=== PATIENT | female | born 1940 | race Caucasian/White ===

== ENCOUNTER 2016-12-14 02:30 | Inpatient (IN) | payer MEDICARE, BC ==
[2016-12-14] MEDS ORDERED: SODIUM CHLORIDE 0.9% 1,000 ML IV STA ×2 (02:51)
[2016-12-14] MEDS ORDERED: MORPHINE SULFATE 4 MG/ML SYRINGE IV STA (02:51)
--- NOTE | 2016-12-14 02:54 | ED ---
General Adult HPI - General Chief complaint: Fall Stated complaint: Fall Time Seen by Provider: 12/14/16 02:51 Source: patient, EMS, RN notes reviewed, old records reviewed Mode of arrival: EMS Limitations: no limitations - History of Present Illness Initial comments: This is a 75-year-old female ESS. The patient had a fall while home today. Patient does have recent surgery and knee, has difficulty getting around house. Patient complaining of left hip pain. Denies chest pain or shortness of breath no abdominal pain. Patient also admits to hitting head with no loss of consciousness. No syncopal event no chest pain or shortness of breath, no abdominal pain. Patient is not on blood thinners. Again patient complains of severe left hip pain - Related Data Home Medications Medication Instructions Recorded Confirmed Cholecalciferol (Vitamin D3) 5,000 unit PO BID 06/01/14 08/12/16 [Vitamin D3] Pantoprazole Sodium [Protonix] 40 mg PO DAILY 06/22/14 08/12/16 Atorvastatin [Lipitor] 10 mg PO DAILY 09/07/14 08/12/16 ALPRAZolam [Xanax] 1 mg PO HS@2100 07/08/16 08/12/16 DULoxetine HCL 40 mg PO HS@2100 07/08/16 08/12/16 metFORMIN HCL [Glucophage] 500 mg PO AC-BID 07/20/16 08/12/16 ALPRAZolam [Xanax] 0.25 mg PO BID 08/12/16 08/12/16 Acetaminophen Tab [Tylenol] 1,000 mg PO TID 08/12/16 08/12/16 Bisacodyl [Dulcolax] 10 mg RECTAL DAILY PRN 08/12/16 08/12/16 Glucerna Shake 1 can PO TID-W/MEALS 08/12/16 08/12/16 Ipratropium-Albuterol Nebulize 3 ml INHALATION RT-Q6H PRN 08/12/16 08/12/16 [Duoneb 0.5 mg-3 mg/3 ml Soln] Lisinopril [Zestril] 2.5 mg PO DAILY 08/12/16 08/12/16 Magnesium Hydroxide [Milk of 2,400 mg PO DAILY PRN 08/12/16 08/12/16 Magnesia] Previous Rx's Medication Instructions Recorded Megestrol [Megace] 400 mg PO BID cup 08/18/16 Modafinil [Provigil] 200 mg PO DAILY #30 tab 08/18/16 Propranolol [Inderal] 20 mg PO BID tab 08/18/16 Sennosides-Docusate Sodium 1 each PO DAILY tab 08/18/16 [Senokot-S] Allergies Allergy/AdvReac Type Severity Reaction Status Date / Time latex Allergy Rash/Hives Verified 08/12/16 11:47 hydrocodone bitartrate AdvReac Nausea & Verified 08/12/16 11:47 [From Vicodin] Vomiting ibuprofen [From Motrin] AdvReac Nausea & Verified 08/12/16 11:47 Vomiting morphine AdvReac Nausea & Verified 08/12/16 11:47 Vomiting Review of Systems ROS Statement: Those systems with pertinent positive or pertinent negative responses have been documented in the HPI. ROS Other: All systems not noted in ROS Statement are negative. Past Medical History Past Medical History: Diabetes Mellitus, GERD/Reflux, Hypertension, Renal Disease Additional Past Medical History / Comment(s): vertigo, recent left proximal humerus fx, UTI;S, HX FALLS, ANEMIA, RENAL INSUFICIENCY/FAILURE, HOME OXYGEN 2.5 liters as needed. PER PTS WAS TOLD SHE MAY HAVE EARLY SINGS OF DEMENTIA History of Any Multi-Drug Resistant Organisms: None Reported Past Surgical History: Cholecystectomy, Hysterectomy Additional Past Surgical History / Comment(s): dental surgery-JAW SX BONE TAKEN FROM HIP TO USE., KNEE SURGERY, cataracts, 07-20-16 total rt knee Past Anesthesia/Blood Transfusion Reactions: Motion Sickness Past Psychological History: Anxiety, Depression, Panic Disorder Additional Psychological History / Comment(s): livs with spouse, uses walker. has home 02. Smoking Status: Former smoker Past Alcohol Use History: None Reported Additional Past Alcohol Use History / Comment(s): STARTED SMOKING AT AGE 16, SMOKED 1 PPD X 50 YEARS Past Drug Use History: None Reported - Past Family History Father History Unknown: Yes Additional Family Medical History / Comment(s): Father had a heart valve replacement surgery at approx. age 75. Mother Family Medical History: CVA/TIA General Exam Limitations: no limitations General appearance: alert, in no apparent distress Head exam: Present: atraumatic, normocephalic, normal inspection Eye exam: Present: normal appearance, PERRL, EOMI. Absent: scleral icterus, conjunctival injection, periorbital swelling ENT exam: Present: normal exam, mucous membranes moist Neck exam: Present: normal inspection. Absent: tenderness, meningismus, lymphadenopathy Respiratory exam: Present: normal lung sounds bilaterally. Absent: respiratory distress, wheezes, rales, rhonchi, stridor Cardiovascular Exam: Present: regular rate, normal rhythm, normal heart sounds. Absent: systolic murmur, diastolic murmur, rubs, gallop, clicks GI/Abdominal exam: Present: soft, normal bowel sounds. Absent: distended, tenderness, guarding, rebound, rigid Extremities exam: Present: normal inspection, full ROM, normal capillary refill. Absent: tenderness, pedal edema, joint swelling, calf tenderness Back exam: Present: normal inspection Neurological exam: Present: alert, oriented X3, CN II-XII intact Psychiatric exam: Present: normal affect, normal mood Skin exam: Present: warm, dry, intact, normal color. Absent: rash EKG Findings - EKG Comments: EKG Findings:: EKG shows normal sinus rhythm with ventricular 9, OR 146, QRS 88 , QTc 520 Medical Decision Making - Medical Decision Making 75-year-old for female to ER for evaluation of. Positive left hip fracture, patient be admitted for pain control and surgical evaluation and treatment - Lab Data Result diagrams: 12/14/16 03:15 12/14/16 03:15 Lab Results 12/14/16 12/14/16 12/14/16 Range/Units 03:15 03:15 03:15 WBC 10.7 H (3.8-10.6) k/uL RBC 3.58 L (3.80-5.40) m/uL Hgb 10.7 L (11.4-16.0) gm/dL Hct 33.7 L (34.0-46.0) % MCV 94.1 (80.0-100.0) fL MCH 30.0 (25.0-35.0) pg MCHC 31.9 (31.0-37.0) g/dL RDW 17.4 H (11.5-15.5) % Plt Count 240 (150-450) k/uL Neutrophils % 75 % Lymphocytes % 15 % Monocytes % 5 % Eosinophils % 3 % Basophils % 1 % Neutrophils # 8.0 H (1.3-7.7) k/uL Lymphocytes # 1.6 (1.0-4.8) k/uL Monocytes # 0.5 (0-1.0) k/uL Eosinophils # 0.3 (0-0.7) k/uL Basophils # 0.1 (0-0.2) k/uL Hypochromasia Slight Anisocytosis Slight PT 10.8 (9.0-12.0) sec INR 1.1 (<1.1) APTT 23.4 (22.0-30.0) sec Sodium 141 (137-145) mmol/L Potassium 3.4 L (3.5-5.1) mmol/L Chloride 100 (98-107) mmol/L Carbon Dioxide 28 (22-30) mmol/L Anion Gap 13 mmol/L BUN 12 (7-17) mg/dL Creatinine 0.50 L (0.52-1.04) mg/dL Est GFR (MDRD) Af Amer >60 (>60 ml/min/1.73 sqM) Est GFR (MDRD) Non-Af >60 (>60 ml/min/1.73 sqM) Glucose 136 H (74-99) mg/dL Calcium 9.5 (8.4-10.2) mg/dL Phosphorus 3.6 (2.5-4.5) mg/dL Magnesium 1.7 (1.6-2.3) mg/dL Total Bilirubin 0.8 (0.2-1.3) mg/dL AST 41 H (14-36) U/L ALT 33 (9-52) U/L Alkaline Phosphatase 111 (38-126) U/L Total Protein 6.1 L (6.3-8.2) g/dL Albumin 3.2 L (3.5-5.0) g/dL - Radiology Data Radiology results: report reviewed (CT brain C-spine negative for acute disease , chest x-ray negative for ecchymosis, x-ray left hip positive for fracture), image reviewed Disposition Clinical Impression: Fall, Closed left hip fracture Disposition: ADMITTED IP TO THIS [facility] Condition: Fair Referrals: Omar Guy MD [Primary Care Provider] - 1-2 days
[2016-12-14] MEDS: ONDANSETRON 4 MG/2 ML VIAL IVP STA ×2 (03:16→04:37)
[2016-12-14 03:28] LABS: Anisocytosis Slight; Basophils # (A) 0.1 k/uL (0-0.2); Basophils % (A) 1 %; CH 29.2; CHCM 31.2; Eosinophils # (A) 0.3 k/uL (0-0.7); Eosinophils % (A) 3 %; HCT 33.7 % (34.0-46.0); HDW 2.76; HGB 10.7 gm/dL (11.4-16.0); Hypochromasia Slight; Luc # (Auto) 0.28; Luc % (Auto) 3; Lymphocytes # (A) 1.6 k/uL (1.0-4.8); Lymphocytes % (A) 15 %; MCHC 31.9 g/dL (31.0-37.0); MCV 94.1 fL (80.0-100.0); Mean Platelet Volume 7.4; Monocytes # (A) 0.5 k/uL (0-1.0); Monocytes % (A) 5 %; Neutrophils % (A) 75 %; RBC 3.58 m/uL (3.80-5.40); RDW 17.4 % (11.5-15.5); WBC 10.7 k/uL (3.8-10.6); WBC (Perox) 11.03
[2016-12-14 03:37] LABS: INR 1.1 (<1.1); Partial Thromboplastin Time 23.4 sec (22.0-30.0); Prothrombin Time 10.8 sec (9.0-12.0)
[2016-12-14 03:38] LABS: ALT 33 U/L (9-52); AST 41 U/L (14-36); Alkaline Phosphatase 111 U/L (38-126); Anion Gap 13 mmol/L; Blood Urea Nitrogen 12 mg/dL (7-17); Calcium 9.5 mg/dL (8.4-10.2); Carbon Dioxide 28 mmol/L (22-30); Chloride 100 mmol/L (98-107); Glucose 136 mg/dL (74-99); Magnesium 1.7 mg/dL (1.6-2.3); Non-African American GFR(MDRD) >60 (>60 ml/min/1.73 sqM); Phosphorous 3.6 mg/dL (2.5-4.5); Potassium 3.4 mmol/L (3.5-5.1); Sodium 141 mmol/L (137-145); Total Bilirubin 0.8 mg/dL (0.2-1.3); Total Protein 6.1 g/dL (6.3-8.2)
[2016-12-14 03:54] LABS: Creatine Kinase 30 U/L (30-135)
[2016-12-14] MEDS ORDERED: SODIUM CHLORIDE 0.9% 1,000 ML IV ONE (04:03)
[2016-12-14 04:07] LABS: Creatine Kinase MB 0.4 ng/mL (0.0-2.4); Troponin I <0.012 ng/mL (0.000-0.034)
--- NOTE | 2016-12-14 04:11 | XR ---
INDICATION: Weakness COMPARISON: CXR 08/12/16 FINDINGS: Single frontal view of the chest is provided. There is stable cardiomegaly. Pulmonary vascularity is cephalized without overt pulmonary edema. There are linear opacities at the bilateral lung bases, likely representing subsegmental atelectasis/scarring. There is no pleural effusion or pneumothorax. Hyperexpanded lungs are stable from prior exam and compatible with chronic obstructive pulmonary disease. Abnormal angulation is suggested at the left humeral neck. Osseous structures are otherwise unremarkable. IMPRESSION: 1. Abnormal angulation suggested at the left humeral neck which may represent age-indeterminate fracture of the left humerus. Correlate clinically and consider dedicated radiographs of the left humerus/shoulder. 2. No radiographic evidence of acute cardiopulmonary disease. 3. COPD with bibasilar scarring/subsegmental atelectasis.
--- NOTE | 2016-12-14 04:17 | XR ---
LEFT HIP, 2 VIEWS INDICATION: Left hip pain COMPARISON: None. FINDINGS: AP and cross-table lateral views of the left hip are obtained. Bones are osteopenic. There is an acute traumatic intertrochanteric fracture of the left femur with proximal migration of the femoral shaft and varus deformity. The lesser trochanter fragment is medially displaced by 2 cm. There is comminution involving the greater trochanter. There is regional soft tissue swelling. IMPRESSION: Osteopenia with acute traumatic comminuted and angulated intertrochanteric fracture of the left femur with medially displaced lesser trochanter fracture fragment.
--- NOTE | 2016-12-14 04:26 | CT ---
CT HEAD WITHOUT CONTRAST INDICATION: Trauma TECHNIQUE: Noncontrast volumetric CT acquisition was performed through the head. Multiplanar reformatted images were provided. This CT exam was performed using one or more of the following dose reduction techniques: automated exposure control, adjustment of the mA and/or kV according to patient size, and/or use of iterative reconstruction technique. DOSIMETRY: CTDIvol 60.30 mGy; DLP 1017.90 mGy-cm COMPARISON: CT Head 08/12/16 FINDINGS: There is evidence of acute intracranial hemorrhage or abnormal extra-axial fluid collection. There is no mass effect or midline shift. There are involutional changes with prominence of the sulci, ventricles, and basal cisterns. Hypoattenuation in the periventricular cerebral white matter is compatible with chronic small vessel ischemic disease. Ingram-white matter differentiation is preserved. There is no evidence of skull fracture. The visualized paranasal sinuses and mastoid air cells are clear. IMPRESSION: 1. No CT evidence of acute intracranial process. CT CERVICAL SPINE WITHOUT CONTRAST INDICATION: Trauma TECHNIQUE: Noncontrast volumetric CT acquisition was performed through the cervical spine. Multiplanar reformatted images were provided. This CT exam was performed using one or more of the following dose reduction techniques: automated exposure control, adjustment of the mA and/or kV according to patient size, and/or use of iterative reconstruction technique. DOSIMETRY: CTDIvol 14 mGy; DLP 285.10 mGy-cm COMPARISON: None. FINDINGS: There is straightening of the cervical spine. Vertebral body heights are maintained. There is no evidence of acute fracture or subluxation. There is multilevel degenerative disc disease and facet arthropathy. There is 2 mm degenerative anterolisthesis of C4 on C5. There is multilevel mild foraminal narrowing without evidence of high-grade spinal canal narrowing. There is no prevertebral soft tissue swelling. The lung apices are clear and demonstrate mild centrilobular emphysema. IMPRESSION: 1. No CT evidence of acute osseous abnormality.
[2016-12-14 04:34] LABS: Appearance,Urine Clear (Clear); Bacteria,Urine Many /hpf; Bilirubin,Urine Negative (Negative); Glucose,Urine (UA) Negative (Negative); Ketones,Urine Trace (Negative); Leukocyte Esterase,Urine Negative (Negative); Mucus,Urine Occasional /hpf; Nitrite,Urine Negative (Negative); PH, Urine 5.5 (5.0-8.0); Particle Count 8712; Protein,Urine 2+ (Negative); Squamous Epithelial Cell,Urine <1 /hpf (0-4); UA Billing (MACRO vs. MICRO) MICRO; Urobilinogen,Urine <2.0 mg/dL (<2.0); WBC,Urine 9 /hpf (0-5)
--- NOTE | 2016-12-14 04:34 | CT ---
CT LEFT HIP WITHOUT CONTRAST INDICATION: Left hip fracture TECHNIQUE: Noncontrast volumetric CT acquisition was performed through the left hip. Multiplanar reformatted images were provided. This CT exam was performed using one or more of the following dose reduction techniques: automated exposure control, adjustment of the mA and/or kV according to patient size, and/or use of iterative reconstruction technique. DOSIMETRY: CTDIvol 14.60 mGy; DLP 273.40 mGy-cm. COMPARISON: Left hip radiographs 12/14/16 FINDINGS: Bones are osteopenic. There is an acute traumatic comminuted and impacted intertrochanteric fracture of the left femur. There is proximal migration of the femoral shaft resulting in varus deformity. There is comminution of the fracture at the greater trochanter. There is comminution and 2 cm medial displacement of the lesser trochanter fracture fragment. There is a small hemarthrosis of the left hip. There is swelling of the surrounding soft tissues. There is a chronic displaced fracture through the left iliac crest. The displaced iliac crest fragment demonstrates well-corticated margins. IMPRESSION: 1. Acute traumatic impacted and angulated intertrochanteric fracture of the left femur with comminuted, medially displaced lesser trochanter fracture fragment. 2. Chronic displaced fracture through the left iliac crest.
[2016-12-14] MEDS: MORPHINE SULFATE 2 MG/ML SYRINGE IVP PRN ×3 (04:36→13:08)
[2016-12-14 05:23] VITALS: BMI 22.1
--- NOTE | 2016-12-14 07:34 | P.HPOR ---
History of Present Illness H&P Date: 12/14/16 Chief Complaint: Left intertrochanteric hip fracture This is a 75-year-old female who was seen and examined evaluated at bedside on the medical surgical floor today. Patient was brought to [facility] emergency room early this morning after sustaining a fall. Patient was attempting to get out of bed, tripped falling onto her left side. She had severe pain of the left hip, was unable to weight bear, EMS was contacted and brought patient to the hospital. Upon arrival to the hospital, imaging test were done. Images demonstrated a displaced left intertrochanteric hip fracture. I was contacted by the emergency room staff with regards to this patient, she has seen Dr. Javier in the past for multiple orthopedic problems. Most recent was a right total knee replacement on 07/20/2016. I was able to review the images with Dr. Javier, patient was admitted under our care. Internal medicine was consulted for proper clearances. At bedside today, patient is resting comfortably. She is alert and oriented 3 , she answers my questions adequately. She admits to left hip pain when she attempts to move. Patient states that she can discontinue to use a walker when ambulating. The right knee pain has been much improved since surgery. She denies any new acute pain in the right knee. She denies any pain of the right hip. She denies any significant left knee or foot or ankle pain. She denies any new onset low back pain. Review of Systems Constitutional: Reports as per HPI Past Medical History Past Medical History: Diabetes Mellitus, GERD/Reflux, Hypertension, Renal Disease Additional Past Medical History / Comment(s): vertigo, recent left proximal humerus fx, UTI;S, HX FALLS, ANEMIA, RENAL INSUFICIENCY/FAILURE, HOME OXYGEN 2.5 liters as needed. PER PTS WAS TOLD SHE MAY HAVE EARLY SINGS OF DEMENTIA History of Any Multi-Drug Resistant Organisms: None Reported Past Surgical History: Cholecystectomy, Hysterectomy Additional Past Surgical History / Comment(s): dental surgery-JAW SX BONE TAKEN FROM HIP TO USE., KNEE SURGERY, cataracts, 07-20-16 total rt knee Past Anesthesia/Blood Transfusion Reactions: Motion Sickness Past Psychological History: Anxiety, Depression, Panic Disorder Additional Psychological History / Comment(s): livs with spouse, uses walker. has home 02. Smoking Status: Former smoker Past Alcohol Use History: None Reported Additional Past Alcohol Use History / Comment(s): STARTED SMOKING AT AGE 16, SMOKED 1 PPD X 50 YEARS Past Drug Use History: None Reported - Past Family History Father History Unknown: Yes Additional Family Medical History / Comment(s): Father had a heart valve replacement surgery at approx. age 75. Mother Family Medical History: CVA/TIA Medications and Allergies Home Medications Medication Instructions Recorded Confirmed Type Cholecalciferol (Vitamin D3) 5,000 unit PO BID 06/01/14 08/12/16 History [Vitamin D3] Pantoprazole Sodium [Protonix] 40 mg PO DAILY 06/22/14 08/12/16 History Atorvastatin [Lipitor] 10 mg PO DAILY 09/07/14 08/12/16 History ALPRAZolam [Xanax] 1 mg PO HS@2100 07/08/16 08/12/16 History DULoxetine HCL 40 mg PO HS@2100 07/08/16 08/12/16 History metFORMIN HCL [Glucophage] 500 mg PO AC-BID 07/20/16 08/12/16 History ALPRAZolam [Xanax] 0.25 mg PO BID 08/12/16 08/12/16 History Acetaminophen Tab [Tylenol] 1,000 mg PO TID 08/12/16 08/12/16 History Bisacodyl [Dulcolax] 10 mg RECTAL DAILY PRN 08/12/16 08/12/16 History Glucerna Shake 1 can PO TID-W/MEALS 08/12/16 08/12/16 History Ipratropium-Albuterol Nebulize 3 ml INHALATION RT-Q6H PRN 08/12/16 08/12/16 History [Duoneb 0.5 mg-3 mg/3 ml Soln] Lisinopril [Zestril] 2.5 mg PO DAILY 08/12/16 08/12/16 History Magnesium Hydroxide [Milk of 2,400 mg PO DAILY PRN 08/12/16 08/12/16 History Magnesia] Allergies Allergy/AdvReac Type Severity Reaction Status Date / Time latex Allergy Rash/Hives Verified 08/12/16 11:47 hydrocodone bitartrate AdvReac Nausea & Verified 08/12/16 11:47 [From Vicodin] Vomiting ibuprofen [From Motrin] AdvReac Nausea & Verified 08/12/16 11:47 Vomiting morphine AdvReac Nausea & Verified 08/12/16 11:47 Vomiting Physical Examination Left lower extremity: Obvious malalignment of the left lower extremity present, she is shortened and internally rotated. There are no obvious open lesions present. No significant ecchymosis or soft tissue swelling. Logroll maneuver reproduces pain in the left groin. She is unable to straight leg raise. Plantar flexion, dorsiflexion, EHL, FHL are intact. Sensory exam to light touch throughout extremities intact. Dorsal pedis pulses 2+. Results - Labs Labs: Abnormal Lab Results - Last 24 Hours (Table) 12/14/16 Range/Units 04:15 Urine Protein 2+ H (Negative) Urine Ketones Trace H (Negative) Urine WBC 9 H (0-5) /hpf Urine Bacteria Many H (None) /hpf Urine Mucus Occasional H (None) /hpf Result Diagrams: 12/14/16 03:15 12/14/16 03:15 - Diagnostic results Hip x-ray: report reviewed, image reviewed Hip CT: report reviewed, image reviewed Assessment and Plan Plan: Imaging: Multiple imaging test were done including x-rays and CTs the left hip. Images to demonstrate a displaced and comminuted left intertrochanteric hip fracture Assessment: 1. Displaced left intertrochanteric hip fracture 2. Status post fall from bed 3. History of right total knee arthroplasty, 07/20/2016 4. Other medical comorbidities Plan: 1. Our plan is to proceed with an open reduction internal fixation of this left hip fracture, we would like to proceed with the afternoon of 12/14/2016. I did discuss the case, including both surgical treatment and postoperative period with the patient and her at bedside. I discussed the risk and benefits of the procedure, this including but not excluding infections, developmental blood clots, blood loss, pain and stiffness, need for subsequent surgery, mortality. Patient is in good understanding would like to proceed with surgery 2. Nothing by mouth 3. Nonweightbearing left leg 4. Obtain medical clearance 5. Obtain consents 6. Pain control, utilize tramadol 50 mg every 6, avoid heavier narcotics due to mental status changes 7. GI and DVT prophylaxis, we'll discuss with medical 8. Further recommendations to follow after surgery Time with Patient: Less than 30
[2016-12-14] MEDS: ENOXAPARIN 40 MG/0.4 ML SYRINGE SQ SCH (08:05)
[2016-12-14] MEDS ORDERED: IPRATROPIUM-ALBUTEROL 3 ML NEB INHALATION PRN (08:18)
[2016-12-14] MEDS: PROPRANOLOL 20 MG TAB PO SCH ×2 (08:42→20:58)
[2016-12-14] MEDS ORDERED: PROPRANOLOL 20 MG TAB PO SCH (09:00)
[2016-12-14] MEDS: POTASSIUM CHLORIDE 20 MEQ, LIDOCAINE 2% INJ 20 MG in SODIUM CHLORIDE 0.9% 100 ML IVPB SCH ×2 (09:40→11:37)
[2016-12-14] MEDS: ALPRAZolam 0.25 MG TAB PO SCH ×2 (11:35→20:55)
[2016-12-14] MEDS: PANTOPRAZOLE 40 MG TABLET PO SCH (11:35)
[2016-12-14] MEDS: LISINOPRIL 2.5 MG TAB PO SCH (11:36)
[2016-12-14] MEDS: traMADol 50 MG TAB PO SCH ×5 (11:36→23:41)
[2016-12-14] MEDS: ENALAPRILAT 1.25 MG/ML 1 ML VIAL IVP PRN (13:18)
[2016-12-14] MEDS ORDERED: IV FLUID CONTINUATION 600 ML IV ONE (13:44)
[2016-12-14] MEDS ORDERED: ONDANSETRON 4 MG/2 ML VIAL IVP ONE (14:07)
[2016-12-14 14:14] LABS: Glucose,Whole Blood 139 mg/dL (75-99)
[2016-12-14] MEDS ORDERED: fentaNYL (PF) 50 MCG/ML 2 ML AMP IV ONE (14:15)
[2016-12-14] MEDS ORDERED: ceFAZolin 1,000 MG in DEXTROSE/WATER 1 50ML.BAG IVPB STA (14:23)
[2016-12-14] MEDS ORDERED: KETAMINE 10 MG/ML 20 ML VIAL ONE (14:34)
[2016-12-14] MEDS ORDERED: PROPOFOL 10 MG/ML 20 ML VIAL IV ONE (14:34)
[2016-12-14] MEDS ORDERED: hydrALAZINE HCL 20 MG/ML 1 ML VIAL ONE (14:34)
[2016-12-14] MEDS ORDERED: fentaNYL (PF) 50 MCG/ML 2 ML AMP ONE (14:34)
[2016-12-14] MEDS ORDERED: MIDAZOLAM 2 MG/2 ML VIAL ONE (14:34)
--- NOTE | 2016-12-14 14:38 | CONS ---
DATE OF CONSULTATION: ATTENDING PHYSICIAN: Dr. Javier. CONSULTING PHYSICIAN: Dr. Ambrocio Guy. REASON FOR CONSULTATION: Consultation regarding preop evaluation and management. HISTORY OF PRESENT ILLNESS: This 75-year-old female was admitted to the hospital with a fractured left hip. The patient fell. During the night, the patient was trying to get out of bed to use the bathroom. She has got to small pillows on the edge of the bed to help support an extension to the mattress area. The patient night dress got caught on that. She started falling. The patient reached for the walker but fell to the floor. The patient did hit her head. A CAT scan of the head was done with no evidence of injury. She was not dizzy prior to fall. The patient had no syncopal episode. The patient did have a fracture as mentioned above. She is scheduled for surgery. Prior to this fall, the patient has been doing fairly well and has had no symptoms of any recent infections. The patient does have a no history of any bleeding disorder. The patient functional status is fairly limited. The patient had a right knee arthroplasty done a few months ago and still has some limitation to the knee joint. The patient also has still low motivation. Her spouse does a lot of her functions. Past medical history is significant for the history of COPD with chronic respiratory failure. The patient also has history of hypertension, diabetes mellitus, "adequately controlled". The patient has mild aortic stenosis and mitral regurgitation. No history of any liver disease, kidney disease. She did have an episode of renal failure due to severe dehydration, which has resolved. The patient has no history of any thyroid condition, ulcers, TB, hepatitis, rheumatic fever. No history of any myocardial infarction or CVA. The patient has a long history of previous long history of smoking, nonsmoker at present. She has a history of chronic anxiety and depression, for which she sees a psychiatrist. She also has history of chronic headaches for which she has been on Inderal. Past surgical significant history is significant for cholecystectomy, hysterectomy, bone graft to the jaw, right knee meniscus surgery back in 2004 and subsequent right total knee arthroplasty. PERSONAL HISTORY: The patient is a nonsmoker at present. Alcohol none. ALLERGIES: KEFLEX, SENSITIVE TO NARCOTICS WITH NAUSEA AND VOMITING. SENSITIVE TO PAXIL. SOCIAL HISTORY: Patient is and lives with her spouse who has been a great help for her. FAMILY MEDICAL HISTORY: Father with a history of ASHD and severe aortic stenosis post surgery. Mother had a history of hypertension, diabetes mellitus, and dementia. Medications at present include: 1. Metformin 500 mg b.i.d. 2. Senokot daily. 3. Inderal 20 mg b.i.d. 4. Protonix 40 mg daily. 5. Provigil 200 milligrams daily. 6. Megace 400 mg b.i.d. 7. Lisinopril 2.5 mg daily. 8. DuoNeb updrafts q.i.d. 9. Duloxetine 40 mg at bedtime. 10. Vitamin D3 daily. 11. Lipitor 10 mg daily. 12. Xanax 0.25 b.i.d. and 1 mg at bedtime. REVIEW OF SYSTEMS: NEURO: Denies any headaches, dizziness. No double vision, blurred vision. No symptoms of TIA, syncope, seizures. PSYCH: History of chronic anxiety, depression. CARDIAC: Denies chest pain, angina, palpitations. RESPIRATORY: Denies shortness of breath, cough, hemoptysis. Does have history of chronic obstructive lung disease with chronic hypoxia. She uses oxygen, but at present fairly stable respiratory status. GI: Occasional nausea. No vomiting, diarrhea, abdominal pain constipation, hematochezia, melena. : No symptoms of dysuria, hematuria, urgency, frequency, at present has IDC. EXTREMITIES: Has pain in the left hip, otherwise mild chronic edema at the ankles. SKIN: No breakdown. ENT: Adequate hearing, smell, taste. EYES: Adequate vision. PHYSICAL EXAMINATION: Pleasant female, at present in no distress. Vital signs reveal temperature 98.1, pulse 77, respirations 16, blood pressure was 200/81, pulse of 93% on 2 liters. HEENT: Normocephalic. NECK: No JVD. Pupils are reactive. Oral cavity is moist. Neck reveals no JVD, carotid bruits. CHEST: Examination is clear to auscultation. CARDIAC: Normal S1, S2 with no gallops. Systolic murmur 2/6 right second intercostal space and apex. ABDOMEN: Soft, no palpable masses. Bowel sounds normal. No organomegaly. No bruits. Extremities reveal 1+ edema at the ankles. Neurologically awake, alert, oriented x3 with well-coordinated movements in both upper extremities. Laboratory assessment: CBC which showed a hemoglobin 10.7, white count 10.7, platelets 240. INR is normal. Potassium was low at 3.4 and is being replaced. Normal renal function. Glucose 136. Troponin is negative. Urine had 2+ protein. Negative nitrates. ASSESSMENT: 1. Chronic obstructive pulmonary disease with chronic respiratory failure. Stable. 2. Diabetes mellitus, controlled. 3. History of hypertension. 4. Status post left hip fracture. 5. Previous history of right total knee arthroplasty. 6. Chronic anxiety, depression. 7. Anemia, chronic. PLAN: The patient is stable. Continue present medical regimen. Patient's condition stable to undergo the planned surgical procedure of left hip ORIF. The patient's condition discussed with the patient and spouse. Prognosis remains guarded. She is going to require rehabilitation. The patient's EKG does reveal changes of left ventricular hypertrophy, with no acute changes.
[2016-12-14] MEDS ORDERED: SODIUM CHLORIDE 0.9% 100 ML with ceFAZolin 2,000 MG IV ONE ×2 (15:00)
[2016-12-14] MEDS ORDERED: ceFAZolin 1,000 MG in SODIUM CHLORIDE 0.9% 1,000 ML IRRIGATION ONE (15:39)
[2016-12-14] MEDS ORDERED: LACTATED RINGERS 1,000 ML IV ONE ×2 (16:16→17:24)
[2016-12-14] MEDS ORDERED: MAGNESIUM HYDROXIDE 2,400 MG/10 ML CUP PO PRN (16:18)
[2016-12-14] MEDS ORDERED: ONDANSETRON 4 MG/2 ML VIAL IVP PRN (16:18)
[2016-12-14] MEDS ORDERED: NALOXONE 0.4 MG/ML 1 ML VIAL IV PRN (16:18)
--- NOTE | 2016-12-14 16:25 | P.OP ---
Date of Procedure: 12/14/16 Preoperative Diagnosis: Comminuted intertrochanteric fracture left hip Postoperative Diagnosis: Comminuted intertrochanteric fracture left hip Procedure(s) Performed: Open reduction and internal fixation left hip intertrochanteric fracture Implants: Mert hip capture short 135 screw with 4-hole plate and 4- appropriate length 4.5 cortical screws Anesthesia: spinal Surgeon: Guillermo Javier Spring Assembler Supervisor #1: Federico Brownlee Estimated Blood Loss (ml): 75 Pathology: none sent Condition: stable Disposition: PACU Indications for Procedure: 75-year-old patient seen with a displaced comminuted left hip intertrochanteric fracture. I recommended open reduction and internal fixation. I discussed procedure, risks, complications and recovery.. Patient and were agreeable, consent was obtained. Operative Findings: See description of procedure Description of Procedure: The patient was taken to the operative suite. The patient underwent a spinal anesthetic by the department of anesthesia. Patient was transferred to the fracture table. She received preoperative IV antibiotics. The left lower extremity placed in standard longitudinal traction and the right lower extremity is placed in well-padded well-leg walters. Appropriate traction and some internal rotation were placed left lower extremity. The C-arm was brought in confirming adequate alignment of this comminuted intertrochanteric fracture. The left hip was then prepped and draped in the normal sterile orthopedic fashion. I made an incision beginning just distal to the greater trochanter extending distally approximately 4 inches sharply through skin. Dissection taken down to the IT band. It was incised as was the fascia overlying the vastus lateralis. I dissected down to the lateral proximal femur. I now introduced a guidewire into the head/neck complex under direct fluoroscopy confirming adequate positioning. Appropriate depth gauging and triple reaming were now performed. I now introduced a short 135 hip capture screw into the head neck complex with good bite and purchase noted. This was secured to a 4 hole plate. We secured that to the proximal femur. We now made appropriate drill holes through the plate and inserted appropriate length screws which all had good bite and purchase. We now checked the position under both AP and lateral intraoperative imaging and noted adequate alignment of both the fracture and hardware. Spot films were obtained documenting. The C-arm was pulled back. The wound was irrigated. The fascia was repaired with #1 Vicryl. The IT band was repaired with #3 Vicryl. The subcu soft tissues were approximated in layers with 2-0 Vicryl. The skin was approximated with skin joseph. Sterile dressings were applied. The patient was then awakened, transferred to a bed and then recovery stable condition. Dangelo KNOWLES assisted with the procedure.
[2016-12-14 17:30] LABS: Glucose,Whole Blood 172 mg/dL (75-99)
[2016-12-14 18:16] LABS: Glucose,Whole Blood 166 mg/dL (75-99)
[2016-12-14] MEDS: INSULIN LISPRO (humaLOG) 300 UNIT/3 ML VIAL SQ SCH ×3 (18:27→23:23)
[2016-12-14 18:32] LABS: Anisocytosis Slight; Basophils # (A) 0.1 k/uL (0-0.2); Basophils % (A) 1 %; CHCM 30.3; Eosinophils # (A) 0.1 k/uL (0-0.7); Eosinophils % (A) 1 %; HCT 30.6 % (34.0-46.0); HDW 2.77; HGB 9.5 gm/dL (11.4-16.0); Hypochromasia Moderate; Luc # (Auto) 0.28; Luc % (Auto) 3; Lymphocytes # (A) 1.1 k/uL (1.0-4.8); Lymphocytes % (A) 12 %; MCH 29.8 pg (25.0-35.0); MCV 96.1 fL (80.0-100.0); Mean Platelet Volume 7.5; Monocytes # (A) 0.7 k/uL (0-1.0); Monocytes % (A) 8 %; Neutrophils # (A) 6.6 k/uL (1.3-7.7); Neutrophils % (A) 75 %; RBC 3.18 m/uL (3.80-5.40); WBC 8.8 k/uL (3.8-10.6); WBC (Perox) 9.39
[2016-12-14 20:21] LABS: Glucose,Whole Blood 150 mg/dL (75-99)
[2016-12-14] MEDS: ALPRAZolam 0.5 MG TAB PO SCH (20:55)
[2016-12-14] MEDS: LACTATED RINGERS 1,000 ML IV SCH (20:58)
[2016-12-14] MEDS: DULoxetine HCL 20 MG CAPSULE.DR PO SCH (20:58)
[2016-12-14] MEDS: SENNOSIDES-DOCUSATE SODIUM 1 EACH TAB PO SCH (20:58)
[2016-12-14] MEDS: ceFAZolin 2 GM in SODIUM CHLORIDE 0.9% 100 ML IVPB SCH (23:39)
[2016-12-15] MEDS: ALPRAZolam 0.25 MG TAB PO SCH ×3 (00:17→19:46)
[2016-12-15] MEDS: ALPRAZolam 0.5 MG TAB PO SCH ×2 (00:17→19:46)
[2016-12-15] MEDS: MORPHINE SULFATE 2 MG/ML SYRINGE IVP PRN ×3 (00:49→20:16)
[2016-12-15 07:10] LABS: Glucose,Whole Blood 145 mg/dL (75-99)
--- NOTE | 2016-12-15 07:38 | FL ---
EXAMINATION TYPE: FL guidance operating room, XR Hip Complete LT DATE OF EXAM: 12/14/2016 4:19 PM CLINICAL HISTORY: Left hip fracture. TECHNIQUE: Fluoroscopy. Intraoperative limited views left hip. COMPARISON: None. FINDINGS: Fluoroscopic guidance was provided during open reduction internal fixation procedure perfo rmed by Dr. Javier. A total of 84 seconds of fluoroscopic time was utilized during the procedure and 2 spot intraoperative images are acquired. Intraoperative images acquired show placement of lateral plate with 4 distal transverse screws and la rger normal neck fixating screws through comminuted intertrochanteric fracture of the left proximal f emur. IMPRESSION: As Above.
[2016-12-15] MEDS: PANTOPRAZOLE 40 MG TABLET PO SCH (08:21)
[2016-12-15] MEDS: PROPRANOLOL 20 MG TAB PO SCH ×2 (08:21→20:46)
[2016-12-15] MEDS: LISINOPRIL 2.5 MG TAB PO SCH (08:22)
[2016-12-15] MEDS: ENOXAPARIN 40 MG/0.4 ML SYRINGE SQ SCH (08:22)
[2016-12-15] MEDS: traMADol 50 MG TAB PO SCH (08:23)
[2016-12-15] MEDS: INSULIN LISPRO (humaLOG) 300 UNIT/3 ML VIAL SQ SCH ×4 (08:29→20:46)
[2016-12-15] MEDS: ceFAZolin 2 GM in SODIUM CHLORIDE 0.9% 100 ML IVPB SCH (09:02)
--- NOTE | 2016-12-15 11:20 | P.PN ---
Subjective Principal diagnosis: Status post open reduction internal fixation left intertrochanteric hip fracture Patient is seen today, she is resting in her hospital chair. Patient is severely agitated, just didn't move her out of bed to the chair. Patient's mental status is altered, likely due to the anesthesia that was given during surgery yesterday. Objective - Vital Signs Vital signs: Vital Signs Temp 98.4 F 12/15/16 03:59 Pulse 82 12/15/16 03:59 Resp 18 12/15/16 03:59 BP 147/63 12/15/16 03:59 Pulse Ox 90 L 12/15/16 07:55 Intake & Output 12/14/16 12/15/16 12/15/16 18:59 06:59 18:59 Intake Total 2851 1100 Output Total 675 Balance 2176 1100 Intake: IV 2651 1100 Sodium Chloride 0.9% 1, 700 900 000 ml @ 100 mls/hr IV . Q10H [facility] Rx#:[id number] ceFAZolin 1,000 mg In 200 Dextrose/Water 1 50ml.bag @ 100 mls/hr IVPB ONCE [facility] Rx#:[id number] Intake, IV Titration 200 Amount Potassium Chloride 20 meq 200 Lidocaine 2% Inj 20 mg In Sodium Chloride 0.9% 100 ml @ 55.5 mls/hr IVPB Q2HR [facility] Rx#:[id number] Output: Urine 600 Estimated Blood Loss 75 Other: Voiding Method Indwelling Catheter Indwelling Catheter Indwelling Catheter # Voids 1 - Exam Left lower extremity: Incision is clean, dry and intact, joseph are in good position. Minimal swelling present around the left lateral hip. Calf is soft, no tenderness with palpation. Plantar flexion, dorsiflexion, EHL, FHL are intact. Dorsal pedis pulses 2+, sensory exam to light touch is intact. - Labs CBC & Chem 7: 12/14/16 18:05 12/14/16 03:15 Labs: Abnormal Lab Results - Last 24 Hours (Table) 12/14/16 12/14/16 12/14/16 Range/Units 14:03 17:27 18:05 RBC 3.18 L (3.80-5.40) m/uL Hgb 9.5 L (11.4-16.0) gm/dL Hct 30.6 L (34.0-46.0) % RDW 17.0 H (11.5-15.5) % POC Glucose (mg/dL) 139 H 172 H (75-99) mg/dL 12/14/16 12/14/16 12/15/16 Range/Units 18:14 20:12 07:06 RBC (3.80-5.40) m/uL Hgb (11.4-16.0) gm/dL Hct (34.0-46.0) % RDW (11.5-15.5) % POC Glucose (mg/dL) 166 H 150 H 145 H (75-99) mg/dL Microbiology - Last 24 Hours (Table) 12/14/16 04:15 Urine Culture - Preliminary Urine,Voided Assessment and Plan Plan: Assessment: 1. Postop day #1 status post open reduction internal fixation left intertrochanteric hip fracture Plan: 1. Pain control, continue use of tramadol 2. Nonweightbearing left leg 3. Daily dressing changes/ice the hip 4. GI and DVT prophylaxis, continue subcu Lovenox at this time 5. Medical recommendations 6. We'll continue to follow the patient during inpatient stay, she'll likely be discharged to rehab in the next few days Time with Patient: Less than 30
[2016-12-15 11:42] LABS: Glucose,Whole Blood 153 mg/dL (75-99)
[2016-12-15] MEDS ORDERED: OFIRMEV PER PHARMACY MISCELLANE PRN (11:43)
[2016-12-15] MEDS ORDERED: ACETAMINOPHEN IV (For NPO) 1,000 MG in EMPTY BAG 1 BAG IVPB PRN (11:45)
[2016-12-15 12:16] LABS: Anisocytosis Slight; Basophils # (A) 0.1 k/uL (0-0.2); Basophils % (A) 1 %; CH 29.2; CHCM 30.2; Eosinophils # (A) 0.1 k/uL (0-0.7); Eosinophils % (A) 1 %; HCT 27.7 % (34.0-46.0); HDW 2.75; HGB 8.4 gm/dL (11.4-16.0); Hypochromasia Moderate; Luc # (Auto) 0.55; Luc % (Auto) 5; Lymphocytes # (A) 1.6 k/uL (1.0-4.8); Lymphocytes % (A) 13 %; MCH 29.3 pg (25.0-35.0); MCHC 30.2 g/dL (31.0-37.0); MCV 97.2 fL (80.0-100.0); Mean Platelet Volume 7.8; Monocytes # (A) 1.2 k/uL (0-1.0); Monocytes % (A) 10 %; Neutrophils # (A) 8.9 k/uL (1.3-7.7); Neutrophils % (A) 71 %; RBC 2.85 m/uL (3.80-5.40); RDW 16.8 % (11.5-15.5); WBC 12.5 k/uL (3.8-10.6); WBC (Perox) 12.76
[2016-12-15] MEDS: ACETAMINOPHEN TAB 500 MG TAB PO PRN (12:18)
[2016-12-15 16:42] LABS: Glucose,Whole Blood 133 mg/dL (75-99)
[2016-12-15] MEDS: LACTATED RINGERS 1,000 ML IV SCH (18:54)
[2016-12-15] MEDS ORDERED: KETOROLAC 30 MG/ML 1 ML VIAL IVP STA (20:36)
[2016-12-15] MEDS: SENNOSIDES-DOCUSATE SODIUM 1 EACH TAB PO SCH (20:41)
[2016-12-15 20:43] LABS: Glucose,Whole Blood 151 mg/dL (75-99)
[2016-12-15] MEDS: DULoxetine HCL 20 MG CAPSULE.DR PO SCH (20:45)
--- NOTE | 2016-12-15 23:26 | PN ---
CHIEF COMPLAINT: Re-evaluation. HISTORY OF PRESENT ILLNESS: [id number] female who was admitted to the hospital with a fractured left hip. Patient has undergone left hip ORIF. Patient was seen this evening. The patient is very agitated. She complains of pain. She does not tolerate narcotics too well. The patient otherwise has no other symptoms. REVIEW OF SYSTEMS: NEURO: Denies any headaches, dizziness. PSYCH: Anxiety. CARDIAC: Denies chest pain. RESPIRATORY: Denies shortness of breath. GI: No nausea, vomiting. Does complain of some abdominal discomfort. : No symptoms of dysuria, hematuria. EXTREMITIES: No pain except to the left hip. CONSTITUTIONAL: No fever or chills. PHYSICAL EXAMINATION: A 75-year-old, restless and anxious. Vital signs revealed temperature 100.6, pulse 92, respiration 16, blood pressure 136/61, pulse ox 90% on 6 L. HEENT: Normocephalic. NECK: No JVD. CHEST: Clear to auscultation with generalized decreased air flow. No wheezing or rhonchi. CARDIAC: Distant heart sounds. S1, S2 with no gallops. ABDOMEN: Soft. Bowel sounds present. Extremities reveal trace edema. NEUROLOGIC: Awake, alert, oriented to person. The patient, however, is very anxious. Moves both upper extremities fairly well. LABORATORY ASSESSMENT: CBC revealed a hemoglobin of 8.4, white count 12.5. Electrolytes are normal. ASSESSMENT: 1. Uncontrolled pain. 2. Anxiety. 3. Anemia secondary to acute blood loss. 4. Chronic obstructive pulmonary disease with chronic respiratory failure. 5. Diabetes mellitus. PLAN: The patient will be given Toradol for a maximum of 4 doses. Will give her some Vistaril to see if that will help her nausea as well as the pain and anxiety. Patient's condition discussed with patient and her son. Prognosis remains guarded. The patient's label indicates IBUPROFEN ALLERGY, which is gastric upset. Plan as mentioned above. Hold the narcotics. Overall prognosis remains guarded.
[2016-12-16] MEDS: IPRATROPIUM-ALBUTEROL 3 ML NEB INHALATION SCH ×3 (07:11→19:53)
[2016-12-16 07:32] LABS: Glucose,Whole Blood 130 mg/dL (75-99)
[2016-12-16] MEDS: ALPRAZolam 0.25 MG TAB PO SCH ×3 (08:29→17:29)
[2016-12-16] MEDS: hydrOXYzine PAMOATE 25 MG CAP PO PRN ×2 (08:29→19:49)
[2016-12-16] MEDS: LISINOPRIL 2.5 MG TAB PO SCH (08:30)
[2016-12-16] MEDS: PANTOPRAZOLE 40 MG TABLET PO SCH (08:30)
[2016-12-16] MEDS: ENOXAPARIN 40 MG/0.4 ML SYRINGE SQ SCH (08:30)
[2016-12-16] MEDS: INSULIN LISPRO (humaLOG) 300 UNIT/3 ML VIAL SQ SCH ×4 (08:30→21:11)
[2016-12-16] MEDS: PROPRANOLOL 20 MG TAB PO SCH ×2 (08:30→20:55)
[2016-12-16] MEDS: KETOROLAC 30 MG/ML 1 ML VIAL IVP PRN ×2 (08:31→15:34)
[2016-12-16] MEDS: LACTATED RINGERS 1,000 ML IV SCH (08:36)
[2016-12-16] MEDS: ACETAMINOPHEN TAB 500 MG TAB PO PRN ×2 (11:53→19:49)
[2016-12-16 11:59] LABS: Glucose,Whole Blood 130 mg/dL (75-99)
[2016-12-16 12:53] LABS: Anisocytosis Slight; Aty Lym Flag Slight; CH 29.5; CHCM 31.8; HCT 21.1 % (34.0-46.0); HDW 2.92; Hypochromasia Slight; Immature Gran Flag Slight; MCH 30.3 pg (25.0-35.0); MCHC 32.4 g/dL (31.0-37.0); MCV 93.4 fL (80.0-100.0); Mean Platelet Volume 8.4; RBC 2.26 m/uL (3.80-5.40); RDW 16.7 % (11.5-15.5); WBC 10.8 k/uL (3.8-10.6); WBC (Perox) 10.94
[2016-12-16 13:02] LABS: HGB 6.9 gm/dL (11.4-16.0)
[2016-12-16 13:48] LABS: Add Differential Manual Differential
[2016-12-16 13:51] LABS: Manual Review Performed; Nucleated Red Blood Cells 0 /100 WBC (0-0); Total Cells Counted 100
[2016-12-16 16:50] LABS: Glucose,Whole Blood 138 mg/dL (75-99)
[2016-12-16 20:45] LABS: Glucose,Whole Blood 167 mg/dL (75-99)
[2016-12-16] MEDS: ALPRAZolam 0.5 MG TAB PO SCH (20:57)
[2016-12-16] MEDS: DULoxetine HCL 20 MG CAPSULE.DR PO SCH (21:11)
[2016-12-16] MEDS: SENNOSIDES-DOCUSATE SODIUM 1 EACH TAB PO SCH (21:11)
--- NOTE | 2016-12-16 23:46 | PN ---
CHIEF COMPLAINT: Re-evaluation. HISTORY OF PRESENT ILLNESS: This is a 75-year-old female who is status post left hip ORIF. REVIEW OF SYSTEMS: NEURO: Denies any headaches, dizziness. PSYCH: Anxiety. CARDIAC: Denies chest pain, angina, palpitation. RESPIRATORY: Denies shortness of breath. Does have some cough. No hemoptysis. History of chronic COPD. GI: No nausea vomiting. Appetite has been poor. No abdominal pain, diarrhea. : No symptoms of dysuria, hematuria. Has IDC. EXTREMITIES: Complains of pain. CONSTITUTIONAL: No fever, chills. PHYSICAL EXAMINATION: Pleasant female in no distress. Vital signs reveal temperature 98, pulse 83, respirations 16, blood pressure 135/64, pulse ox 99% on 2 L. HEENT: Normocephalic. NECK: No JVD. Chest is clear to auscultation with generalized decreased air flow. No rhonchi or wheezing appreciated. CARDIAC: Distant heart sounds. S1, S2 with no gallops. Systolic murmur 2/6, left sternal border. ABDOMEN: Soft. Bowel sounds present. Extremities reveal trace edema. Neurologically awake, alert. Oriented to person and person. Patient is anxious. Moves both upper extremities fairly well. LABORATORY ASSESSMENT: CBC which reveals a hemoglobin down to 6.9, platelets 182. ASSESSMENT: 1. Anemia secondary to acute blood loss, probably site of surgery and fracture; there is no clear evidence of any gastrointestinal bleeding at present. 2. Status post left hip open reduction and internal fixation. 3. Chronic obstructive pulmonary disease. 4. Hypertension. 5. Chronic anxiety. PLAN: Continue present medical regimen. The patient will be transfused 1 unit of packed red cells. Patient's prognosis remains guarded.
[2016-12-17] MEDS: KETOROLAC 30 MG/ML 1 ML VIAL IVP PRN ×3 (00:17→17:35)
[2016-12-17] MEDS: ALPRAZolam 0.25 MG TAB PO SCH ×5 (00:22→21:25)
[2016-12-17] MEDS: hydrOXYzine PAMOATE 25 MG CAP PO PRN ×2 (01:10→13:44)
[2016-12-17] MEDS: IPRATROPIUM-ALBUTEROL 3 ML NEB INHALATION SCH ×4 (04:53→19:10)
[2016-12-17] MEDS: LACTATED RINGERS 1,000 ML IV SCH ×2 (05:08→13:57)
[2016-12-17 07:39] LABS: Glucose,Whole Blood 138 mg/dL (75-99)
[2016-12-17 07:42] LABS: Anisocytosis Slight; Basophils # (A) 0.1 k/uL (0-0.2); Basophils % (A) 1 %; CH 29.3; CHCM 30.7; Eosinophils # (A) 0.4 k/uL (0-0.7); Eosinophils % (A) 6 %; HCT 29.1 % (34.0-46.0); HDW 3.89; Hypochromasia Marked; Luc # (Auto) 0.32; Luc % (Auto) 5; Lymphocytes % (A) 13 %; MCH 30.9 pg (25.0-35.0); MCHC 32.1 g/dL (31.0-37.0); MCV 96.3 fL (80.0-100.0); Mean Platelet Volume 7.6; Monocytes # (A) 0.6 k/uL (0-1.0); Monocytes % (A) 8 %; Neutrophils # (A) 4.9 k/uL (1.3-7.7); Neutrophils % (A) 68 %; Poikilocytosis Slight; RBC 3.02 m/uL (3.80-5.40); RDW 16.4 % (11.5-15.5); WBC 7.2 k/uL (3.8-10.6); WBC (Perox) 7.76
[2016-12-17 07:43] LABS: HGB 9.3 gm/dL (11.4-16.0)
[2016-12-17 07:57] LABS: Anion Gap 9 mmol/L; Blood Urea Nitrogen 20 mg/dL (7-17); Calcium 8.7 mg/dL (8.4-10.2); Carbon Dioxide 25 mmol/L (22-30); Chloride 102 mmol/L (98-107); Glucose 120 mg/dL (74-99); Non-African American GFR(MDRD) >60 (>60 ml/min/1.73 sqM); Sodium 136 mmol/L (137-145)
[2016-12-17 08:11] LABS: Potassium 4.8 mmol/L (3.5-5.1)
[2016-12-17] MEDS: INSULIN LISPRO (humaLOG) 300 UNIT/3 ML VIAL SQ SCH ×4 (08:59→21:39)
--- NOTE | 2016-12-17 09:27 | P.PN ---
Subjective Principal diagnosis: Status post open reduction internal fixation left intertrochanteric hip fracture Patient is seen today, she is sleeping. Her is present at bedside. She had a very difficult night, very agitated. Her hemoglobin has improved significantly since yesterday. Objective - Vital Signs Vital signs: Vital Signs Temp 97.8 F 12/17/16 07:00 Pulse 70 12/17/16 07:44 Resp 16 12/17/16 07:00 BP 171/71 12/17/16 07:00 Pulse Ox 98 12/17/16 07:00 Intake & Output 12/16/16 12/17/16 12/17/16 18:59 06:59 18:59 Intake Total 780 1010 Output Total 350 Balance 780 660 Weight 55.091 kg Intake: Intake, IV Titration 550 Amount Lactated Ringers 1,000 ml 550 @ 50 mls/hr IV .Q20H [facility] Rx#:[id number] Oral 780 150 Blood Product 0 310 Rc As-1 Unit 0 310 [id number] Output: Urine 350 Uretheral ([facility]) 350 Other: Voiding Method Indwelling Catheter Indwelling Catheter Indwelling Catheter # Voids 1 - Exam Left lower extremity: Incision is clean, dry and intact, joseph are in good position. Minimal swelling present around the left lateral hip. Calf is soft, no tenderness with palpation. Plantar flexion, dorsiflexion, EHL, FHL are intact. Dorsal pedis pulses 2+, sensory exam to light touch is intact. - Labs CBC & Chem 7: 12/17/16 06:48 12/17/16 06:48 Labs: Abnormal Lab Results - Last 24 Hours (Table) 12/14/16 12/16/16 12/16/16 Range/Units 14:15 11:57 12:40 WBC 10.8 H (3.8-10.6) k/uL RBC 2.26 L (3.80-5.40) m/uL Hgb 6.9 L* D (11.4-16.0) gm/dL Hct 21.1 L (34.0-46.0) % RDW 16.7 H (11.5-15.5) % Neutrophils # (Manual) 7.8 H (1.3-7.7) k/uL Monocytes # (Manual) 1.2 H (0-1.0) k/uL Sodium (137-145) mmol/L BUN (7-17) mg/dL Glucose (74-99) mg/dL POC Glucose (mg/dL) 130 H (75-99) mg/dL Crossmatch See Detail 12/16/16 12/16/16 12/17/16 Range/Units 16:46 20:34 06:48 WBC (3.8-10.6) k/uL RBC 3.02 L (3.80-5.40) m/uL Hgb 9.3 L D (11.4-16.0) gm/dL Hct 29.1 L (34.0-46.0) % RDW 16.4 H (11.5-15.5) % Neutrophils # (Manual) (1.3-7.7) k/uL Monocytes # (Manual) (0-1.0) k/uL Sodium (137-145) mmol/L BUN (7-17) mg/dL Glucose (74-99) mg/dL POC Glucose (mg/dL) 138 H 167 H (75-99) mg/dL Crossmatch 12/17/16 12/17/16 Range/Units 06:48 07:34 WBC (3.8-10.6) k/uL RBC (3.80-5.40) m/uL Hgb (11.4-16.0) gm/dL Hct (34.0-46.0) % RDW (11.5-15.5) % Neutrophils # (Manual) (1.3-7.7) k/uL Monocytes # (Manual) (0-1.0) k/uL Sodium 136 L (137-145) mmol/L BUN 20 H (7-17) mg/dL Glucose 120 H (74-99) mg/dL POC Glucose (mg/dL) 138 H (75-99) mg/dL Crossmatch Assessment and Plan Plan: Assessment: 1. Postop day #3 status post open reduction internal fixation left intertrochanteric hip fracture Plan: 1. Pain control, hold off all narcotics. Continue tylenol and anti inflammatories 2. Nonweightbearing left leg 3. Daily dressing changes/ice the hip 4. GI and DVT prophylaxis, continue subcu Lovenox at this time 5. Medical recommendations 6. We'll continue to follow the patient during inpatient stay, likely discharged to rehab in the next few days Time with Patient: Less than 30
--- NOTE | 2016-12-17 09:50 | P.PN ---
Subjective Principal diagnosis: Status post left hip History present illness 75-year-old female was status post left hip ORIF. She has underlying history of COPD. She had anemia secondary to possible. She has had no bowel movement. Monitor for any melena. Patient basically at time restless and agitated. This morning she is sleeping. She did well last night. She hasn't had breakfast yet this morning. When awoken denies any symptoms of chest pain shortness of breath headache or dizziness. No nausea vomiting no bowel movement pain left hip fair control. Patient is totally nontolerant to narcotics REVIEW OF SYSTEMS: Neuro: Denies any headaches dizziness. Psych: History of chronic anxiety depression at times agitated here Cardiac: Denies chest pain and angina palpitations. Respiratory: History of chronic shortness of breath and chronic respiratory failure and chronic cough no changes. GI: Denies nausea vomiting or abdominal pain. No diarrhea or constipation, no bowel movement yet. : Denies dysuria hematuria. Extremities: Pain left hip area right knee area Skin: Intact. Constitutional: No fever, chills. Objective - Vital Signs Vital signs: Vital Signs Temp 97.8 F 12/17/16 07:00 Pulse 70 12/17/16 07:44 Resp 16 12/17/16 07:00 BP 171/71 12/17/16 07:00 Pulse Ox 98 12/17/16 07:00 Intake & Output 12/16/16 12/17/16 12/17/16 18:59 06:59 18:59 Intake Total 780 1010 Output Total 350 Balance 780 660 Weight 55.091 kg Intake: Intake, IV Titration 550 Amount Lactated Ringers 1,000 ml 550 @ 50 mls/hr IV .Q20H [facility] Rx#:[id number] Oral 780 150 Blood Product 0 310 Rc As-1 Unit 0 310 [id number] Output: Urine 350 Uretheral ([facility]) 350 Other: Voiding Method Indwelling Catheter Indwelling Catheter Indwelling Catheter # Voids 1 PHYSICAL EXAMINATION: Cooperative, at present in no acute distress. HEENT: [Neck supple. No JVD.] Chest: Clear to auscultation with mild generalized decreased airflow increased percussion note bilateral Cardiac: [Normal S1-S2] [no gallops] systolic murmur 2/6 left sternal border. Abdomen:[ Soft ][bowel sounds present.] Extremities: Trace edema pain left hip right knee area Neurologically: Sleeping, arousable to orientation to person and place most. Upper extremities fairly well - Labs CBC & Chem 7: 12/17/16 06:48 12/17/16 06:48 Labs: Abnormal Lab Results - Last 24 Hours (Table) 12/14/16 12/16/16 12/16/16 Range/Units 14:15 11:57 12:40 WBC 10.8 H (3.8-10.6) k/uL RBC 2.26 L (3.80-5.40) m/uL Hgb 6.9 L* D (11.4-16.0) gm/dL Hct 21.1 L (34.0-46.0) % RDW 16.7 H (11.5-15.5) % Neutrophils # (Manual) 7.8 H (1.3-7.7) k/uL Monocytes # (Manual) 1.2 H (0-1.0) k/uL Sodium (137-145) mmol/L BUN (7-17) mg/dL Glucose (74-99) mg/dL POC Glucose (mg/dL) 130 H (75-99) mg/dL Crossmatch See Detail 12/16/16 12/16/16 12/17/16 Range/Units 16:46 20:34 06:48 WBC (3.8-10.6) k/uL RBC 3.02 L (3.80-5.40) m/uL Hgb 9.3 L D (11.4-16.0) gm/dL Hct 29.1 L (34.0-46.0) % RDW 16.4 H (11.5-15.5) % Neutrophils # (Manual) (1.3-7.7) k/uL Monocytes # (Manual) (0-1.0) k/uL Sodium (137-145) mmol/L BUN (7-17) mg/dL Glucose (74-99) mg/dL POC Glucose (mg/dL) 138 H 167 H (75-99) mg/dL Crossmatch 12/17/16 12/17/16 Range/Units 06:48 07:34 WBC (3.8-10.6) k/uL RBC (3.80-5.40) m/uL Hgb (11.4-16.0) gm/dL Hct (34.0-46.0) % RDW (11.5-15.5) % Neutrophils # (Manual) (1.3-7.7) k/uL Monocytes # (Manual) (0-1.0) k/uL Sodium 136 L (137-145) mmol/L BUN 20 H (7-17) mg/dL Glucose 120 H (74-99) mg/dL POC Glucose (mg/dL) 138 H (75-99) mg/dL Crossmatch Assessment and Plan Plan: ASSESSMENT: 1. Anemia secondary to acute blood loss. 2. Status post left hip ORIF. 3. History of anxiety depression with behavioral issues, agitation. 4. Diabetes mellitus. 5. COPD. 6. History of hypertension. 7. Degenerative arthritis right knee joint status post arthroplasty PLAN: Continue present medical regimen. Patient's condition discussed with the patient spouse. She might settle down and enough to be transferred to nursing facility for continued rehab tomorrow. Patient's prognosis remains guarded due to poor compliance and cooperation.
[2016-12-17 11:54] LABS: Glucose,Whole Blood 131 mg/dL (75-99)
[2016-12-17] MEDS: ACETAMINOPHEN TAB 500 MG TAB PO PRN (13:44)
[2016-12-17] MEDS: LISINOPRIL 2.5 MG TAB PO SCH (13:46)
[2016-12-17] MEDS: PROPRANOLOL 20 MG TAB PO SCH ×2 (13:46→21:24)
[2016-12-17] MEDS: ENOXAPARIN 40 MG/0.4 ML SYRINGE SQ SCH (13:46)
[2016-12-17] MEDS: PANTOPRAZOLE 40 MG TABLET PO SCH (13:46)
[2016-12-17 17:41] LABS: Glucose,Whole Blood 115 mg/dL (75-99)
[2016-12-17] MEDS: SODIUM CHLORIDE 0.9% 1,000 ML IV SCH (17:57)
[2016-12-17] MEDS: ALPRAZolam 0.5 MG TAB PO SCH (21:24)
[2016-12-17] MEDS: DULoxetine HCL 20 MG CAPSULE.DR PO SCH (21:25)
[2016-12-17 21:32] LABS: Glucose,Whole Blood 112 mg/dL (75-99)
[2016-12-17] MEDS: SENNOSIDES-DOCUSATE SODIUM 1 EACH TAB PO SCH (21:39)
[2016-12-18] MEDS: KETOROLAC 30 MG/ML 1 ML VIAL IVP PRN ×4 (02:42→21:55)
[2016-12-18] MEDS: IPRATROPIUM-ALBUTEROL 3 ML NEB INHALATION SCH ×4 (04:15→20:28)
[2016-12-18] MEDS: SODIUM CHLORIDE 0.9% 1,000 ML IV SCH ×2 (05:13→17:35)
[2016-12-18 07:34] LABS: Anisocytosis Slight; Aty Lym Flag Slight; CHCM 31.5; HCT 25.1 % (34.0-46.0); Hypochromasia Moderate; MCH 29.1 pg (25.0-35.0); MCHC 30.3 g/dL (31.0-37.0); MCV 95.9 fL (80.0-100.0); Mean Platelet Volume 8.1; Poikilocytosis Slight; RBC 2.62 m/uL (3.80-5.40); RDW 17.1 % (11.5-15.5); WBC 6.1 k/uL (3.8-10.6); WBC (Perox) 6.99
[2016-12-18 07:37] LABS: Glucose,Whole Blood 112 mg/dL (75-99)
[2016-12-18 07:42] LABS: ALT 21 U/L (9-52); AST 46 U/L (14-36); Alkaline Phosphatase 82 U/L (38-126); Anion Gap 8 mmol/L; Blood Urea Nitrogen 18 mg/dL (7-17); Calcium 8.4 mg/dL (8.4-10.2); Carbon Dioxide 24 mmol/L (22-30); Chloride 106 mmol/L (98-107); Glucose 110 mg/dL (74-99); Magnesium 1.9 mg/dL (1.6-2.3); Non-African American GFR(MDRD) >60 (>60 ml/min/1.73 sqM); Potassium 4.2 mmol/L (3.5-5.1); Sodium 138 mmol/L (137-145); Total Bilirubin 1.7 mg/dL (0.2-1.3); Total Protein 4.9 g/dL (6.3-8.2)
[2016-12-18 07:50] LABS: HGB 7.6 gm/dL (11.4-16.0)
[2016-12-18] MEDS: LISINOPRIL 2.5 MG TAB PO SCH (08:04)
[2016-12-18] MEDS: ALPRAZolam 0.25 MG TAB PO SCH ×3 (08:04→17:32)
[2016-12-18] MEDS: PROPRANOLOL 20 MG TAB PO SCH ×2 (08:04→21:52)
[2016-12-18] MEDS: PANTOPRAZOLE 40 MG TABLET PO SCH (08:04)
[2016-12-18] MEDS: ENOXAPARIN 40 MG/0.4 ML SYRINGE SQ SCH (08:07)
[2016-12-18] MEDS: INSULIN LISPRO (humaLOG) 300 UNIT/3 ML VIAL SQ SCH ×3 (08:10→23:57)
[2016-12-18 08:21] LABS: Add Differential Manual Differential
[2016-12-18 08:26] LABS: Manual Review Performed; Nucleated Red Blood Cells 0 /100 WBC (0-0); Total Cells Counted 100
--- NOTE | 2016-12-18 09:38 | XR ---
EXAMINATION TYPE: XR shoulder complete LT DATE OF EXAM ORDERED: 12/18/2016 9:31 AM HISTORY: pain. COMPARISON: None.. FINDINGS: There is a deformity of the left humeral neck. This likely relates to previous trauma. No acute fracture is seen. There is mild hypertrophic change in the left AC joint. IMPRESSION: 1. EVIDENCE OF OLD TRAUMA 2. NO DEFINITE ACUTE ABNORMALITY. 3. HYPERTROPHIC CHANGE, LEFT AC JOINT.
--- NOTE | 2016-12-18 09:39 | XR ---
EXAMINATION TYPE: XR humerus LT DATE OF EXAM ORDERED: 12/18/2016 9:30 AM HISTORY: pain. COMPARISON: None. FINDINGS: There is a deformity of the left humeral neck. No acute fracture or dislocation is seen. IMPRESSION: 1. EVIDENCE OF OLD TRAUMA. 2. NO DEFINITE ACUTE ABNORMALITY.
--- NOTE | 2016-12-18 10:05 | P.PN ---
Subjective Principal diagnosis: Status post open reduction internal fixation left intertrochanteric hip fracture Patient is seen today, she's resting in bed. Her agitation is slightly improved , her mental status is also improved. X-rays were ordered for her left upper extremity due to pain, these were negative for any acute fractures or dislocations. Patient's hemoglobin again has dropped overnight. Objective - Vital Signs Vital signs: Vital Signs Temp 98.2 F 12/18/16 03:55 Pulse 72 12/18/16 08:52 Resp 15 12/18/16 08:00 BP 149/75 12/18/16 03:55 Pulse Ox 92 L 12/18/16 08:41 Intake & Output 12/17/16 12/18/16 12/18/16 18:59 06:59 18:59 Intake Total 880 Output Total 1000 Balance -120 Intake: Intake, IV Titration 400 Amount Lactated Ringers 1,000 ml 400 @ 50 mls/hr IV .Q20H [facility] Rx#:[id number] Oral 480 Output: Urine 1000 Uretheral ([facility]) 1000 Other: Voiding Method Indwelling Catheter Diaper Bedpan Incontinent Incontinent # Voids 1 1 - Exam Left lower extremity: Incision is clean, dry and intact, joseph are in good position. Minimal swelling present around the left lateral hip. Calf is soft, no tenderness with palpation. Plantar flexion, dorsiflexion, EHL, FHL are intact. Dorsal pedis pulses 2+, sensory exam to light touch is intact. - Labs CBC & Chem 7: 12/18/16 06:50 12/18/16 06:50 Labs: Abnormal Lab Results - Last 24 Hours (Table) 12/17/16 12/17/16 12/17/16 Range/Units 11:51 17:21 21:29 RBC (3.80-5.40) m/uL Hgb (11.4-16.0) gm/dL Hct (34.0-46.0) % MCHC (31.0-37.0) g/dL RDW (11.5-15.5) % BUN (7-17) mg/dL Creatinine (0.52-1.04) mg/dL Glucose (74-99) mg/dL POC Glucose (mg/dL) 131 H 115 H 112 H (75-99) mg/dL Total Bilirubin (0.2-1.3) mg/dL AST (14-36) U/L Total Protein (6.3-8.2) g/dL Albumin (3.5-5.0) g/dL 12/18/16 12/18/16 12/18/16 Range/Units 06:50 06:50 07:34 RBC 2.62 L (3.80-5.40) m/uL Hgb 7.6 L D (11.4-16.0) gm/dL Hct 25.1 L (34.0-46.0) % MCHC 30.3 L (31.0-37.0) g/dL RDW 17.1 H (11.5-15.5) % BUN 18 H (7-17) mg/dL Creatinine 0.51 L (0.52-1.04) mg/dL Glucose 110 H (74-99) mg/dL POC Glucose (mg/dL) 112 H (75-99) mg/dL Total Bilirubin 1.7 H (0.2-1.3) mg/dL AST 46 H (14-36) U/L Total Protein 4.9 L (6.3-8.2) g/dL Albumin 2.2 L (3.5-5.0) g/dL Assessment and Plan Plan: Assessment: 1. Postop day #4 status post open reduction internal fixation left intertrochanteric hip fracture Plan: 1. Pain control, hold off all narcotics. Continue tylenol and anti inflammatories 2. Nonweightbearing left leg 3. Daily dressing changes/ice the hip 4. GI and DVT prophylaxis, continue subcu Lovenox at this time 5. Medical recommendations 6. On an orthopedic standpoint, patient is stable. We will be signing off as admitting doctor, medical take over for further treatment. 7. Discharge instructions will be in patient's chart Time with Patient: Less than 30
[2016-12-18 10:25] LABS: % Iron Saturation 8.8 % (20-50)
[2016-12-18 11:59] LABS: Glucose,Whole Blood 141 mg/dL (75-99)
[2016-12-18] MEDS ORDERED: SODIUM FERRIC GLUCONAT-SUCROSE 125 MG in SODIUM CHLORIDE 0.9% 100 ML IVPB ONE (12:00)
[2016-12-18] MEDS: ACETAMINOPHEN TAB 500 MG TAB PO PRN (12:47)
[2016-12-18 17:02] LABS: Glucose,Whole Blood 136 mg/dL (75-99)
[2016-12-18] MEDS ORDERED: IPRATROPIUM-ALBUTEROL 3 ML NEB INHALATION PRN (21:11)
[2016-12-18] MEDS: DULoxetine HCL 20 MG CAPSULE.DR PO SCH (21:53)
[2016-12-18] MEDS: hydrOXYzine PAMOATE 25 MG CAP PO PRN (21:53)
[2016-12-18] MEDS: ALPRAZolam 0.5 MG TAB PO SCH (21:53)
[2016-12-18] MEDS: SENNOSIDES-DOCUSATE SODIUM 1 EACH TAB PO SCH (21:54)
[2016-12-18] MEDS: ENALAPRILAT 1.25 MG/ML 1 ML VIAL IVP PRN (22:56)
[2016-12-18 23:24] LABS: Glucose,Whole Blood 115 mg/dL (75-99)
[2016-12-19] MEDS: ACETAMINOPHEN TAB 500 MG TAB PO PRN ×3 (00:03→22:35)
[2016-12-19] MEDS: ALPRAZolam 0.25 MG TAB PO SCH ×5 (00:04→20:39)
[2016-12-19] MEDS: KETOROLAC 30 MG/ML 1 ML VIAL IVP PRN ×4 (03:23→18:58)
[2016-12-19] MEDS: hydrOXYzine PAMOATE 25 MG CAP PO PRN (03:36)
[2016-12-19 06:40] LABS: Glucose,Whole Blood 121 mg/dL (75-99)
--- NOTE | 2016-12-19 07:22 | CONS ---
DATE OF CONSULTATION: Patient of Dr. Guy. She is a 75-year-old, white female, . DATA: She is a FULL CODE. Her height is 5 feet 2 inches. Her weight 55.09 kg. Her BSA 1.55 sq m, BMI 22.2 kg/sq m. ALLERGIES AND ADVERSE EFFECT. 1. Latex. 2. Hydrocodone. 3. Ibuprofen. 4. Morphine. Most of them causing nausea and vomiting except latex causing rash and hives. Seen today for the first visit by Dr. Lopez in the temporary absence of Dr. Guy. Patient has underlying past history of diabetes mellitus, hypertension and she had GERD disease and she has been taking chronic medication. As patient admitted to the hospital on this admission under the care of Dr. Javier who is the attending on this case, Dr. Guy, her primary care. Patient had fracture of the hip and underwent open reduction internal fixation by Dr. Javier. Subsequently followed by Dr. Guy, who asked me to see the patient today to follow her through until transfer to the rehabilitation facility. Patient was seen today, evaluated and found that she has underlying anemia. She dropped down from midline to 6.9 and transfused 1 unit of packed RBCs postoperative, which did help, but subsequently still her hemoglobin dropped again. Today it was low and we will be transfusing her a unit of iron with the precaution of fever or chills or hypotension. As patient was seen today, evaluated and discussed with her RN, Christianne, and she had been complaining of severe pain at the site of surgery as well as a left arm and apparently was thought to be fractured and repeated x-ray of the left shoulder and the left arm and was old trauma to the left arm. She still has pain, but patient allergic to all medication for pain. Currently she is on tramadol and will continue to use the tramadol. Patient also had the underlying anemia that is not corrected. She is on iron pills, but not helping her at this time with the symptoms of very fatigued and being uncontrolled. On examination, she is conscious, alert, oriented and she is complaining of some pain. I examined her with the presence of her RN. Her blood sugar is covered with insulin and currently stable with no hyperglycemia and has been monitored. Her vital signs stable at this time. Her HEENT was negative. Neck was supple. Chest was clear to auscultation and percussion. HEART was PMI in the fifth, regular sinus rhythm. Abdomen was soft, positive bowel sounds. Her extremities, she had pain in the left arm and also the left hip. No edema of the extremities with a good perfusion bilaterally. The laboratories is on the computer and we reviewed it with normal renal function at this point. However, the hemoglobin was dropped and will be starting her on iron supplementation and subsequently patient will be able to go [facility] and to be followed as outpatient by Dr. Guy. Her current laboratory, on the , she has white count of 6.1 with hemoglobin 7.6 and hematocrit 25.1. Her platelet count is 237 and her electrolytes indicating sodium 138, potassium 4.2, chloride 106. Her carbon dioxide 24. Her BUN 18, creatinine 0.51. Her estimated glomerular filtration rate for non- more than 60 and her blood sugar has been controlled 112 to 141. Her calcium is 8, magnesium is 1.9. Her current medication that was given to her: She is taking with the underlying history of anxiety, depression, she has been on Lovenox for DVT prophylaxis. She is on insulin Humalog a.c. and at bedtime. She is on lisinopril is 2.5 mg daily and ketorolac 50 mg as well. Will be planning for 1 dose of iron transfusion 125 mg and subsequently will check patient's labs tomorrow and patient could be going today or tomorrow to the rehabilitation center as has been planned by the Orthopedic Surgeon. She is going to have today ( ) sodium gluconate 125 mg, which will be given 1 time only and subsequently will check her CBC tomorrow. She is on beta hilary at this time and she was yesterday communication with the nursing staff stated that she did not have urine output and subsequently we increased changing the IV fluid and change it to IV 100 mL an hour for 10 hours and then subsequently change it to 50 mL per an hour and the patient subsequently will be discontinued IV and able to transfer to [facility] and rehab.
[2016-12-19] MEDS: INSULIN LISPRO (humaLOG) 300 UNIT/3 ML VIAL SQ SCH ×5 (08:23→20:47)
[2016-12-19] MEDS: ENOXAPARIN 40 MG/0.4 ML SYRINGE SQ SCH (08:25)
[2016-12-19] MEDS: PROPRANOLOL 20 MG TAB PO SCH ×2 (08:26→20:40)
[2016-12-19] MEDS: LISINOPRIL 2.5 MG TAB PO SCH (08:26)
[2016-12-19] MEDS: PANTOPRAZOLE 40 MG TABLET PO SCH (08:26)
[2016-12-19] MEDS: IPRATROPIUM-ALBUTEROL 3 ML NEB INHALATION SCH ×3 (09:29→19:59)
[2016-12-19 09:54] LABS: Anisocytosis Slight; Basophils # (A) 0.1 k/uL (0-0.2); Basophils % (A) 1 %; CH 30.2; CHCM 31.5; Eosinophils # (A) 0.4 k/uL (0-0.7); Eosinophils % (A) 6 %; HCT 24.4 % (34.0-46.0); HDW 3.58; HGB 7.4 gm/dL (11.4-16.0); Hypochromasia Moderate; Luc # (Auto) 0.22; Luc % (Auto) 3; Lymphocytes # (A) 0.9 k/uL (1.0-4.8); Lymphocytes % (A) 12 %; MCH 29.3 pg (25.0-35.0); MCHC 30.2 g/dL (31.0-37.0); MCV 96.8 fL (80.0-100.0); Macrocytosis Slight; Mean Platelet Volume 7.8; Monocytes # (A) 0.7 k/uL (0-1.0); Monocytes % (A) 10 %; Neutrophils # (A) 4.8 k/uL (1.3-7.7); Neutrophils % (A) 68 %; Poikilocytosis Slight; RBC 2.52 m/uL (3.80-5.40); RDW 18.3 % (11.5-15.5); WBC (Perox) 7.35
[2016-12-19] MEDS ORDERED: FUROSEMIDE 10 MG/ML 2 ML VIAL IV STA (10:32)
--- NOTE | 2016-12-19 10:41 | P.PN ---
Progress Note - Text S: The patient is somewhat lethargic this morning. She denies significant pain. She is on 6 L of oxygen per nasal cannula. O: Afebrile, blood pressure elevated, O2 sats at 90% on 6 L Homans [negative] Distal neurovascular status intact in the operative extremity Incision clean, dry , and intact left hip A/P: Status post ORIF left intertrochanteric femur fracture Hypertension Anemia Continue medical management. Continue supportive care.
--- NOTE | 2016-12-19 10:42 | P.PN ---
Subjective This is dictation by Dr. John Hensley FACP, on Mrs. Landrum, covering for Dr. Guy. Patient appeared to be lethargic with high blood pressure 188 systolic. Not a candidate for discharge. Her hemoglobin is 7.4, she received 1 unit of iron IV yesterday however the response will be expected tomorrow 48 hour after the infusion. With the underlying mild to moderate iron deficiency and found to have hematoma of her back of her legs and possibly lost some blood associated with that. White count is normal no evidence of infection patient status post surgery for left hip fracture by Dr. Javier. Diabetes mellitus type 2 insulin-dependent currently monitored with fairly controlled blood sugar. Her iron is 23 and TIBC 261 saturation 8.8 and serum ferritin 30 which indicate anemia associated with chronic illness as well mild to moderate iron deficiency her liver enzyme was done on December 18. Was normal. On exam her has bedtime she is conscious alert but lethargic she denied any pain today. Her HEENT was negative but she has difficulty of opening her eyes was sleeping. HEENT ENT negative neck was supple no lymphadenopathy trachea midline. Chest she had a rhonchi's and the crackles on the right middle lobe and will obtain a chest x-ray to clarify that issue and will continue to inhalation therapy updraft nebulizers. Heart was regular sinus rhythm. Abdomen soft positive bowel sounds and extremities no edema. The she had oxygen saturation desaturation with the increase oxygen to 6 L. Assessment status post fracture of the left hip intertrochanteric #2 currently lethargy #3 hypertension accelerated with a blood pressure 188 systolic #4 anemia and she received iron supplement. And #5 rule out underlying infiltrate versus congestive heart failure. Plan lactic acid BNP and a chest x-ray today they will call me with the results. We'll repeat CBC with differential tomorrow and the BMP. Objective - Vital Signs Vital signs: Vital Signs Temp 98.1 F 12/19/16 07:30 Pulse 81 12/19/16 07:30 Resp 18 12/19/16 07:30 BP 188/81 12/19/16 09:24 Pulse Ox 90 L 12/19/16 07:30 Intake & Output 12/18/16 12/19/16 12/19/16 18:59 06:59 18:59 Intake Total 1380 400 Output Total 100 750 Balance 1280 -750 400 Intake: Intake, IV Titration 500 Amount Lactated Ringers 1,000 ml 400 @ 50 mls/hr IV .Q20H [facility] Rx#:[id number] Sodium Ferric Gluconat- 100 Sucrose 125 mg In Sodium Chloride 0.9% 100 ml @ 100 mls/hr IVPB ONCE ONE Rx#:[id number] Oral 880 400 Output: Urine 100 750 Straight 750 Other: Voiding Method Bedpan Diaper Diaper # Voids 2 # Bowel Movements 1 1 - Labs CBC & Chem 7: 12/19/16 09:38 12/18/16 06:50 Labs: Abnormal Lab Results - Last 24 Hours (Table) 12/18/16 12/18/16 12/18/16 Range/Units 06:50 11:53 16:57 RBC (3.80-5.40) m/uL Hgb (11.4-16.0) gm/dL Hct (34.0-46.0) % MCHC (31.0-37.0) g/dL RDW (11.5-15.5) % Lymphocytes # (1.0-4.8) k/uL POC Glucose (mg/dL) 141 H 136 H (75-99) mg/dL Iron 23 L (37-170) ug/dL TIBC 261 L (265-497) ug/dL % Saturation 8.8 L (20-50) % 12/18/16 12/19/16 12/19/16 Range/Units 23:12 06:38 09:38 RBC 2.52 L (3.80-5.40) m/uL Hgb 7.4 L (11.4-16.0) gm/dL Hct 24.4 L (34.0-46.0) % MCHC 30.2 L (31.0-37.0) g/dL RDW 18.3 H (11.5-15.5) % Lymphocytes # 0.9 L (1.0-4.8) k/uL POC Glucose (mg/dL) 115 H 121 H (75-99) mg/dL Iron (37-170) ug/dL TIBC (265-497) ug/dL % Saturation (20-50) %
--- NOTE | 2016-12-19 11:48 | XR ---
EXAMINATION TYPE: XR chest 2V DATE OF EXAM: 12/19/2016 11:43 AM HISTORY: CHF. REFERENCE: Previous study dated 12/14/2016. FINDINGS: The lungs are overinflated. The heart is enlarged. There is vascular congestion and pulmona ry edema. There is some confluent airspace disease at the left lung base. This may represent superimp osed pneumonia or confluent edema. I suspect a small left effusion. IMPRESSION: FINDINGS CONSISTENT WITH CONGESTIVE HEART FAILURE.
[2016-12-19] MEDS: LISINOPRIL 10 MG TAB PO SCH (11:54)
[2016-12-19 11:55] LABS: Glucose,Whole Blood 147 mg/dL (75-99)
[2016-12-19] MEDS: FUROSEMIDE 20 MG TAB PO SCH (14:00)
[2016-12-19] MEDS: PIPERACILLIN-TAZOBACTAM 3.375 GM in DEXTROSE/WATER 1 50ML.BAG IVPB SCH ×2 (15:41→23:52)
[2016-12-19 17:09] LABS: Glucose,Whole Blood 195 mg/dL (75-99)
[2016-12-19] MEDS: SODIUM CHLORIDE 0.9% 1,000 ML IV SCH ×2 (17:38→20:39)
[2016-12-19] MEDS: ALPRAZolam 0.5 MG TAB PO SCH (20:39)
[2016-12-19] MEDS: SENNOSIDES-DOCUSATE SODIUM 1 EACH TAB PO SCH (20:39)
[2016-12-19] MEDS: DULoxetine HCL 20 MG CAPSULE.DR PO SCH (20:40)
[2016-12-19 20:46] LABS: Glucose,Whole Blood 176 mg/dL (75-99)
[2016-12-19] MEDS ORDERED: ALPRAZolam 0.5 MG TAB PO STA (23:46)
[2016-12-20] MEDS: ACETAMINOPHEN TAB 500 MG TAB PO PRN ×2 (06:47→12:11)
[2016-12-20 07:17] LABS: Glucose,Whole Blood 161 mg/dL (75-99)
[2016-12-20 07:37] LABS: Anion Gap 10 mmol/L; Blood Urea Nitrogen 12 mg/dL (7-17); Calcium 8.7 mg/dL (8.4-10.2); Carbon Dioxide 24 mmol/L (22-30); Chloride 108 mmol/L (98-107); Glucose 160 mg/dL (74-99); Non-African American GFR(MDRD) >60 (>60 ml/min/1.73 sqM); Potassium 3.8 mmol/L (3.5-5.1); Sodium 142 mmol/L (137-145)
[2016-12-20 07:55] LABS: Anisocytosis Moderate; Basophils % (A) 1 %; CH 29.8; CHCM 30.8; Eosinophils # (A) 0.3 k/uL (0-0.7); Eosinophils % (A) 3 %; HCT 25.2 % (34.0-46.0); HDW 3.65; HGB 7.8 gm/dL (11.4-16.0); Hypochromasia Marked; Luc # (Auto) 0.39; Luc % (Auto) 4; Lymphocytes # (A) 1.5 k/uL (1.0-4.8); Lymphocytes % (A) 16 %; MCH 30.3 pg (25.0-35.0); MCHC 30.9 g/dL (31.0-37.0); MCV 98.2 fL (80.0-100.0); Macrocytosis Slight; Mean Platelet Volume 7.5; Monocytes # (A) 0.7 k/uL (0-1.0); Monocytes % (A) 8 %; Neutrophils % (A) 67 %; Poikilocytosis Slight; RBC 2.57 m/uL (3.80-5.40); RDW 20.3 % (11.5-15.5); WBC 8.9 k/uL (3.8-10.6); WBC (Perox) 9.41
[2016-12-20] MEDS: INSULIN LISPRO (humaLOG) 300 UNIT/3 ML VIAL SQ SCH ×4 (08:41→21:55)
[2016-12-20] MEDS: PANTOPRAZOLE 40 MG TABLET PO SCH (08:43)
[2016-12-20] MEDS: FUROSEMIDE 20 MG TAB PO SCH (08:44)
[2016-12-20] MEDS: ENOXAPARIN 40 MG/0.4 ML SYRINGE SQ SCH (08:44)
[2016-12-20 08:53] LABS: Polychromasia Present
[2016-12-20] MEDS: ALPRAZolam 0.25 MG TAB PO SCH ×5 (08:56→22:34)
[2016-12-20] MEDS: PIPERACILLIN-TAZOBACTAM 3.375 GM in DEXTROSE/WATER 1 50ML.BAG IVPB SCH ×2 (08:56→17:55)
[2016-12-20] MEDS: LISINOPRIL 10 MG TAB PO SCH (08:57)
[2016-12-20] MEDS: PROPRANOLOL 20 MG TAB PO SCH ×2 (08:57→22:32)
[2016-12-20] MEDS: IPRATROPIUM-ALBUTEROL 3 ML NEB INHALATION SCH ×3 (09:03→19:22)
[2016-12-20] MEDS ORDERED: SODIUM FERRIC GLUCONAT-SUCROSE 125 MG in SODIUM CHLORIDE 0.9% 100 ML IVPB ONE (11:08)
[2016-12-20] MEDS ORDERED: FUROSEMIDE 10 MG/ML 2 ML VIAL IV STA (11:11)
[2016-12-20 11:51] LABS: Glucose,Whole Blood 173 mg/dL (75-99)
[2016-12-20 13:05] LABS: Bilirubin, Delta 0.6 mg/dL (0.0-0.2); Total Bilirubin 2.3 mg/dL (0.2-1.3); Total Protein 5.2 g/dL (6.3-8.2)
[2016-12-20 13:34] LABS: Reticulocyte % 6.7 % (0.5-2.0)
--- NOTE | 2016-12-20 14:45 | US ---
EXAMINATION TYPE: US venous doppler duplex LE LT DATE OF EXAM: 12/20/2016 2:37 PM COMPARISON: NONE CLINICAL HISTORY: LEFT INNER THIGH HEMATOMA. Recent hip surgery SIDE PERFORMED: VESSELS IMAGED: External Iliac Vein (EIV) Common Femoral Vein Deep Femoral Vein Greater Saphenous Vein * Femoral Vein Popliteal Vein Proximal Calf Veins (* superficial vessels) Exam somewhat limited due to patient being in a kyphotic position with knee rotated inward. Inner thi gh is black and blue, no definite abnormality noted when scanning in this area. Left Leg: Negative for DVT IMPRESSION: Negative exam. No evidence of deep venous thrombosis in the left leg.
--- NOTE | 2016-12-20 14:49 | US ---
EXAMINATION TYPE: US abdomen complete DATE OF EXAM: 12/20/2016 2:38 PM COMPARISON: NONE CLINICAL HISTORY: Abdominal pain, hepatomegaly, recent left hip arth. EXAM MEASUREMENTS: Liver Length: 15.3 cm Gallbladder Wall: Surgically absent CBD: 0.6 cm Spleen: 9.8 cm Right Kidney: 12.0 x 4.0 x 4.6 cm Left Kidney: 10.7 x 4.9 x 4.9 cm Patient is post surgical and in a great deal of pain. Patient is unable/unwilling to cooperate with e xam, all imaging done with patient supine and regular breathing. Pancreas: heterogeneous echotexture Liver: heterogeneous echotexture Gallbladder: Surgically absent CBD: wnl Spleen: wnl Right Kidney: No hydronephrosis or masses seen Left Kidney: No hydronephrosis or masses seen Upper IVC: wnl Abd Aorta: heavily calcified The liver is homogenous. The intrahepatic portion of the IVC and proximal abdominal aorta are within normal limits. There is no evidence of cholelithiasis. Common bile duct is unremarkable. The visu alized portions of the pancreas are homogenous. The spleen is unremarkable. Kidneys are symmetric a nd free of hydronephrosis. No renal lesions are seen. IMPRESSION: Negative complete abdominal sonogram. No dilated ducts. No evidence of renal mass or obst ruction.
--- NOTE | 2016-12-20 15:40 | PN ---
A 75-year-old white female, . She is a FULL CODE. Her data: She 5 foot 2 inches and her weight 55.09 kg, BSA 1.55 m2, BMI 22.2 kg/m2. The BSA 1.55 m2. Allergy to LATEX, HYDROCODONE, IBUPROFEN and MORPHINE. Dictating the progress note in the temporary absence of Dr. Guy by Dr. Lopez. Patient is still lethargic. She received one dose of Xanax last night because of inability to sleep and agitation and discontinued subsequently, has only one dose. She has history at home with underlying depression and she has anxiety and panic attacks and she was on from her home medication on Xanax 3 times a day as well as duloxetine. Dr. Guy ordered the Xanax at the time of the admission. Patient has new problem of hypertension and she has blood pressure currently improved with blood pressure 148/69 with a mean 95. Her oxygen saturation has dropped, desaturated at the time that was found to have the chest x-ray ordered and indicating congestive heart failure and as well as some infiltrate and patient started on diuretics as well as started on antibiotic with the plan for echocardiogram for evaluation of the congestive heart failure to clarify the issue of systolic or diastolic. Patient has underlying history of hypertension and probably hypertensive heart disease. She had a low-grade temperature and for that purpose she is already on antibiotic and treated with Tylenol for pain as well as Toradol. Current laboratory indicating that white count is normal 8.9 with a hemoglobin is start to improve 7.8 with the hematocrit 25.2 and her platelet count is 313 normal. Patient found that she had significant hematoma on the inner side of her left thigh; however, she had more tenderness on the site of the surgery. She had chemistry profile indicating the sodium 142, potassium 3.8, chloride 108, carbon dioxide was 24 with a BUN of 12, creatinine is 0.59, with the underlying estimated glomerular filtration rate is more than 60. Her blood sugar has been controlled and her calcium is 8.7. Patient today on examination, she is moaning and having pain but could not point out clearly except to the area of surgery on the examination, she had decrease her injury bilaterally and patient currently on the Lasix and the BMP was elevated and today is not notated on the lab, but it is noted on we called the nurse and told her that it is about done currently as patient had the chest x-ray indicating the congestive heart failure she started on diuresis as well. On the continuation of the exam, she is responding with verbal stimuli. Her son at bedside and we discussed with him the current problem and we also found that her pro-BMP of 4,180 with age of 75, indicating associated with the congestive heart failure. Will be planning for the echo to differentiate systolic versus diastolic. Her diabetes is under control as mentioned and on the chest she is breathing comfortably, but there is still minimal rhonchi in the rales and bases. The heart was regular sinus rhythm. The abdomen was soft. Positive bowel sounds was suspicious for liver enlargement and tenderness on the liver and epigastric area and we will be obtaining ultrasound of the abdomen as well. The extremities we have inner thigh of the left side hematoma, tender on palpation and she had in the right forearm hematoma as well. The extremities no edema and positive pulses bilateral. ASSESSMENT: With the hematoma of the inner high of the left leg we understand that probability of the anemia drop and that could be from the hematoma in the left inner thigh which was tender. She had vague discomfort in the abdomen with the abdominal pain and possibility of hepatomegaly. We will be obtaining ultrasound of the liver as well as the total abdomen for evaluation and treatment as well as serum amylase and lipase and hepatic function profile to be added to the labs this morning and from the point of epigastric discomfort, we will be starting her on pantoprazole instead of orally change it to IV. Patient currently on antibiotic Zosyn as well and she is diuresed with increase her Lasix to 40 mg once a day. Today, she received 20 mg in the morning and after she is going to have the iron transfusion one dose. She is going to receive 20 mg of Lasix IV. Patient already on saline lock and we will continue the gentle diuresis obtaining the laboratory in the morning as well, including, we are going to start to evaluate if there is RUQ abdominal discomfort. We are still going to obtain the troponin to rule out postoperative event and EKG. Patient will receive sodium avni gluconate 125 mg one dose and Lasix 20 mg IV push subsequently. MTDD
[2016-12-20 17:17] LABS: Glucose,Whole Blood 225 mg/dL (75-99)
[2016-12-20] MEDS: ACETAMINOPHEN TAB 500 MG TAB PO SCH ×2 (17:54→22:32)
[2016-12-20] MEDS: SODIUM CHLORIDE 0.9% 1,000 ML IV SCH (18:07)
[2016-12-20 21:26] LABS: Glucose,Whole Blood 131 mg/dL (75-99)
[2016-12-20] MEDS: CHOLECALCIFEROL 1,000 UNIT TAB PO SCH (22:32)
[2016-12-20] MEDS: SENNOSIDES-DOCUSATE SODIUM 1 EACH TAB PO SCH (22:32)
[2016-12-20] MEDS: DULoxetine HCL 20 MG CAPSULE.DR PO SCH (22:32)
[2016-12-21] MEDS: PIPERACILLIN-TAZOBACTAM 3.375 GM in DEXTROSE/WATER 1 50ML.BAG IVPB SCH ×3 (01:30→16:21)
[2016-12-21] MEDS: ENALAPRILAT 1.25 MG/ML 1 ML VIAL IVP PRN (04:40)
[2016-12-21 06:57] LABS: Glucose,Whole Blood 128 mg/dL (75-99)
[2016-12-21] MEDS: IPRATROPIUM-ALBUTEROL 3 ML NEB INHALATION SCH ×3 (07:25→20:05)
[2016-12-21 07:35] LABS: Partial Thromboplastin Time 24.5 sec (22.0-30.0); Prothrombin Time 10.5 sec (9.0-12.0)
[2016-12-21] MEDS: ALPRAZolam 0.25 MG TAB PO SCH ×2 (07:41→22:46)
[2016-12-21] MEDS: LISINOPRIL 10 MG TAB PO SCH (07:41)
[2016-12-21] MEDS: ATORVASTATIN 10 MG TAB PO SCH (07:41)
[2016-12-21] MEDS: PROPRANOLOL 20 MG TAB PO SCH ×2 (07:41→22:39)
[2016-12-21] MEDS: ACETAMINOPHEN TAB 500 MG TAB PO SCH ×3 (07:41→22:44)
[2016-12-21] MEDS: CHOLECALCIFEROL 1,000 UNIT TAB PO SCH ×2 (07:42→22:39)
[2016-12-21] MEDS: ENOXAPARIN 40 MG/0.4 ML SYRINGE SQ SCH (07:42)
[2016-12-21 07:50] LABS: Anion Gap 12 mmol/L; Blood Urea Nitrogen 11 mg/dL (7-17); Calcium 8.8 mg/dL (8.4-10.2); Carbon Dioxide 23 mmol/L (22-30); Chloride 108 mmol/L (98-107); Glucose 113 mg/dL (74-99); Magnesium 1.9 mg/dL (1.6-2.3); Non-African American GFR(MDRD) >60 (>60 ml/min/1.73 sqM); Potassium 3.3 mmol/L (3.5-5.1); Sodium 143 mmol/L (137-145)
[2016-12-21 08:04] LABS: Anisocytosis Moderate; Aty Lym Flag Slight; CH 30.4; CHCM 30.1; HCT 25.5 % (34.0-46.0); HDW 3.49; HGB 7.7 gm/dL (11.4-16.0); Hypochromasia Marked; MCH 30.9 pg (25.0-35.0); MCHC 30.1 g/dL (31.0-37.0); MCV 102.5 fL (80.0-100.0); Macrocytosis Moderate; Mean Platelet Volume 7.8; Poikilocytosis Slight; RBC 2.48 m/uL (3.80-5.40); RDW 21.9 % (11.5-15.5); WBC 7.9 k/uL (3.8-10.6); WBC (Perox) 8.13
[2016-12-21 08:39] LABS: Add Differential Manual Differential
[2016-12-21 08:41] LABS: Manual Review Performed; Nucleated Red Blood Cells 0 /100 WBC (0-0); Total Cells Counted 100
[2016-12-21 08:42] LABS: Polychromasia Present
[2016-12-21] MEDS ORDERED: FUROSEMIDE 20 MG TAB PO SCH (09:00)
[2016-12-21] MEDS ORDERED: FUROSEMIDE 40 MG TAB PO SCH (09:00)
[2016-12-21] MEDS ORDERED: PANTOPRAZOLE 40 MG/10 ML VIAL IVP SCH (09:00)
[2016-12-21] MEDS: INSULIN LISPRO (humaLOG) 300 UNIT/3 ML VIAL SQ SCH ×4 (09:10→22:43)
--- NOTE | 2016-12-21 10:20 | CDI ---
In responding to this query, please exercise your independent professional judgment. The [facility] Coding Staff and Clinical Documentation Specialists appreciate your assistance in clarifying documentation, maintaining compliance with coding guidelines, accurately documenting patients condition and capturing severity of illness. The fact that a question is asked does not imply that any particular answer is desired or expected. Communication forms are a method of clarifying documentation and are not made part of the Legal Health Record. Thank you in advance for your clarification. Last Revision, November 2015 Ashley Escalante [address] [place] [address] Documentation Clarification Form Date: 12/21/2016 9:42:00 AM From: Emmanuel Phillips, RN, BSN, CDI Admit Date: 12/14/2016 4:04:00 AM Patient Name: Ashlie Landrum Visit Number: [id number] Dr. Sachin Lopez: History/Risk Factors: 75 yo female with a history of COPD and chronic respiratory failure, presents s/p fall with left hip IT fracture s/p ORIF Tobacco use: former smoker Home oxygen: "as needed" Clinical Indicators: the patient is noted to be "lethargic, unable to keep her eyes open" Lung/Breathing assessment: "rhonchi and crackles, rales in the bases" CXR: findings consistent w/CHF Treatment: Oxygen 6L NC, Lasix 20mg IVP x1, Lasix increased to 40mg PO QD Breathing tx: duoneTori gonzalezsyn O2: 30-91% 6L In your professional opinion, can you please clarify if these findings signify one of the following conditions? Acuity: o Chronic o Acute on Chronic Respiratory Status: o Respiratory failure o Respiratory failure with hypercapnia o Respiratory failure with hypoxia o Acute Respiratory Distress o Other Diagnosis, please specify o Unable to determine Please document in your progress notes and discharge summary in order to capture severity of illness and risk of mortality. Include clinical findings that support your diagnosis. FYI: Press F11 to launch patient chart. Place X here if this finding has no clinical significance, is not applicable or if you are not able to provide any additional documentation. TONEY
--- NOTE | 2016-12-21 10:21 | CDI ---
Ashley Escalante [address] [place] [address] Documentation Clarification Form Date: 12/21/2016 10:08:00 AM From: Emmanuel Phillips RN, BSN, CDS Admit Date: 12/14/2016 4:04:00 AM Patient Name: Ashlie Landrum Visit Number: [id number] Dr. Sachin Lopez: CHF is documented in your progress notes. No further documentation provided. History/Risk Factors: 75 yo female with history of COPD and chronic respiratory failure presents s/p ORIF of the left hip after fall with subsequent fracture. She has received 1U PRBC's, iron infusions, 1L fluid bolus given in the ED and IVF @100cc/hr. Clinical Indicators: Pulse OX: 90-91% 6L NC BNP: 4180/8530 Chest X Ray: findings c/w CHF Treatment: Lasix 20mg IVP x2, Lasix increased to 40mg PO QD, d/c IVF In your professional opinion, can you please clarify the acuity and type of CHF if known? Acute Chronic Acute on Chronic AND Systolic Diastolic Systolic and Diastolic CHF ruled out Unable to determine Other, please specify: If known, please specify if Heart Failure is due to: Hypertension Rheumatic Fever Please document in your progress notes and discharge summary in order to capture severity of illness and risk of mortality. Include clinical findings that support your diagnosis. FYI: Press F11 to launch patient chart. Place X here if this finding has no clinical significance, is not applicable or if you are not able to provide any additional documentation. GUERITAD
--- NOTE | 2016-12-21 10:41 | CDI ---
In responding to this query, please exercise your independent professional judgment. The [facility] Coding Staff and Clinical Documentation Specialists appreciate your assistance in clarifying documentation, maintaining compliance with coding guidelines, accurately documenting patients condition and capturing severity of illness. The fact that a question is asked does not imply that any particular answer is desired or expected. Communication forms are a method of clarifying documentation and are not made part of the Legal Health Record. Thank you in advance for your clarification. Last Revision, November 2015 Ashley Escalante [address] [place] [address] Documentation Clarification Form Date: 12/21/2016 10:21:00 AM From: Emmanuel Phillips, RN, BSN, CDI Admit Date: 12/14/2016 4:04:00 AM Patient Name: Ashlie Landrum Visit Number: [id number] Dr. Sachin Lopez: "Lethargy, severe agitation, confusion and altered mental status" have been documented in the post-operative progress notes. Initially the change in mentation was related to anesthesia from surgery. Her mental status initially improved but again she is noted to be lethargic and unable to keep her eyes open. Her discharge was held. Last dose of narcotics given 12/15. Patient history/risk factors: 75 yo female with history of COPD, chronic respiratory failure and anxiety, presents s/p fall with fracture of the left hip s/p ORIF. Clinical Indicators: She is incontinent, wearing diaper Treatment: Oxygen 6L, Xanax dose decreased, Morphine d/c'd, Toradol, Tylenol, Zosyn In your professional opinion, please clarify the etiology of the altered mental status, if known. Delirium (specify cause): Dementia (if know, specify Type and if with/without Behavioral Disturbance) Encephalopathy (specify Type and Underlying Medical Illness) Other condition (please specify) Unable to determine Please document in your progress notes and discharge summary in order to capture severity of illness and risk of mortality. Include clinical findings that support your diagnosis. FYI: Press F11 to launch patient chart. Place X here if this finding has no clinical significance, is not applicable or if you are not able to provide any additional documentation. GUERITAD
--- NOTE | 2016-12-21 11:47 | ECHOF ---
Referral Reason:Congestive heart failure MEASUREMENTS -------- HEIGHT: 157.5 cm WEIGHT: 54.9 kg BP: 168/70 RVIDd: 2.9 cm (< 3.3) IVSd: 1.4 cm (0.6 - 1.1) LVIDd: 3.3 cm (3.9 - 5.3) LVPWd: 1.5 cm (0.6 - 1.1) IVSs: 1.8 cm LVIDs: 2.3 cm LVPWs: 1.7 cm LA Diam: 3.1 cm (2.7 - 3.8) LAESV Index (A-L): 31.28 ml/m Ao Diam: 2.5 cm (2.0 - 3.7) AV Cusp: 1.2 cm (1.5 - 2.6) LA Diam: 3.1 cm (2.7 - 3.8) MV EXCURSION: 9.111 mm (> 18.000) MV EF SLOPE: 33 mm/s (70 - 150) EPSS: 0.3 cm MV E Melvin: 1.62 m/s MV DecT: 288 ms MV A Melvin: 1.13 m/s MV E/A Ratio: 1.42 AV maxP.30 mmHg AV meanP.35 mmHg RAP: 15.00 mmHg RVSP: 50.44 mmHg FINDINGS -------- Sinus rhythm. This was a technically good study. There is moderate concentric left ventricular hypertrophy. Overall left ventricular systolic function is normal with, an EF between 55 - 60 %. Mitral Doppler inflow pattern suggests diastolic filling abnormality 42.12. The right ventricle is normal in size. LA is midly dilated 29-33ml/m2. The right atrium is normal in size. There is mild aortic valve sclerosis. Peak/mean gradient across the Aortic Valve is 16.30mmHg / 7.35mmHg. The mitral valve leaflets are moderately thickened. Moderate mitral annular calcification present. Cbqe-mj-petgbvms mitral regurgitation is present. The peak and mean MV gradients are 9.83mmHg 3.06mmHg as measured by doppler. Mild mitral stenosis. Mild tricuspid regurgitation present. There is moderate pulmonary hypertension. The right ventricular systolic pressure, as measured by Doppler, is 50.44mmHg. Trace/mild (physiologic) pulmonic regurgitation. The aortic root size is normal. The inferior vena cava is dilated with no significant inspiratory collapse which is consistent estimated right atrial pressure of >15 mmHg. Echo free space may represent effusion or a pericardial fat pad. CONCLUSIONS -------- 1. Sinus rhythm. 2. Peak/mean gradient across the Aortic Valve is 16.30mmHg / 7.35mmHg. 3. The mitral valve leaflets are moderately thickened. 4. Moderate mitral annular calcification present. 5. Ocrp-vu-glmnmwnl mitral regurgitation is present. 6. The peak and mean MV gradients are 9.83mmHg 3.06mmHg as measured by doppler. 7. Mild mitral stenosis. 8. Mild tricuspid regurgitation present. 9. There is moderate pulmonary hypertension. 10. The right ventricular systolic pressure, as measured by Doppler, is 50.44mmHg. 11. Trace/mild (physiologic) pulmonic regurgitation. 12. This was a technically good study. 13. The aortic root size is normal. 14. The inferior vena cava is dilated with no significant inspiratory collapse which is consistent estimated right atrial pressure of >15 mmHg. 15. Echo free space may represent effusion or a pericardial fat pad. 16. There is moderate concentric left ventricular hypertrophy. 17. Overall left ventricular systolic function is normal with, an EF between 55 - 60 %. 18. Mitral Doppler inflow pattern suggest diastolic filling abnormality 42.12. 19. The right ventricle is normal in size. 20. LA is midly dilated 29-33ml/m2. 21. The right atrium is normal in size. 22. There is mild aortic valve sclerosis. FURNITURE PACKER: Jr Vargas RDCS
[2016-12-21] MEDS: FUROSEMIDE 10 MG/ML 2 ML VIAL IV SCH ×2 (11:51→23:11)
[2016-12-21] MEDS: amLODIPine 5 MG TAB PO SCH (11:51)
[2016-12-21 11:53] LABS: Glucose,Whole Blood 180 mg/dL (75-99)
[2016-12-21] MEDS ORDERED: Potassium Replacement Protocol 1 EACH MISC MISCELLANE PRN (12:00)
[2016-12-21] MEDS: POTASSIUM CHLORIDE 10 MEQ, LIDOCAINE 2% INJ 10 MG in SODIUM CHLORIDE 0.9% 100 ML IV SCH ×2 (12:59→14:02)
[2016-12-21] MEDS ORDERED: ALPRAZolam 0.25 MG TAB PO PRN (15:23)
--- NOTE | 2016-12-21 15:31 | XR ---
EXAMINATION TYPE: XR chest 1V DATE OF EXAM: 12/21/2016 3:24 PM CLINICAL HISTORY: Difficulty breathing progress study. TECHNIQUE: Single AP portable upright view of the chest is obtained. COMPARISON: Chest x-ray from 2 days earlier. FINDINGS: There is persistent cardiomegaly with small bilateral pleural effusions and central vascula r congestion. Underlying bibasilar infiltrates are difficult to exclude. Upper lungs remain clear wit hout pneumothorax. Osseous structures are demineralized. Healed fracture deformity left proximal elisa ingrid is redemonstrated. IMPRESSION: Overall stable findings, once again suspect CHF exacerbation as there is cardiomegaly w ith small bilateral pleural effusions and central vascular congestion all redemonstrated. Underlying left greater than right bibasilar infiltrates are difficult to exclude.
--- NOTE | 2016-12-21 16:21 | CONS ---
DATE OF CONSULTATION: This patient's medical records reviewed. We are requested to see this patient in consultation because of congestive cardiac failure. Patient is admitted with fall and hip fracture and underwent surgery. Patient subsequently had a low hemoglobin and required transfusion and also getting iron supplementation. She had some evidence of shortness of breath and low oxygen saturation. Chest x-ray was suggestive of congestive cardiac failure. Patient did not complain of any chest pain. Patient has a history of diabetes and hypertension. At present the patient has a history one dose of IV Lasix and currently she is taking Lasix 40 mg daily. She is running intermittently high blood pressure. The patient denies any chest pain. Past medical history please review the old charts. Physical examination at present reveals a 75-year-old female who is sitting she is comfortable and denied any respiratory distress. She did not have any significant orthopnea. Patient's oxygen saturation is 95, blood pressure now is 168 mmHg. HEENT examination is negative. Neck is supple. There is no increase in jugular venous pressure. Both the carotid pulses are felt. There is no bruit. Chest is symmetrical. HEART: The PMI is not felt. First and second heart sounds are normal. There is ejection systolic murmur noted which peaks in mid systole. Lungs reveal bilateral diminished air entry and a few basal rales. ABDOMEN: Soft. EXTREMITIES: There is a hematoma on the left side. Left thigh hematoma. Chest x-ray was suggestive of congestive cardiac failure. Patient's labs today shows hemoglobin 7.7. Electrolytes are normal. Creatinine is 0.57. Patient's BNP level is 8530. FINAL IMPRESSION: 1. This patient is status post hip surgery. Patient's respiratory distress is most likely secondary to congestive cardiac failure, which could be secondary to fluid overload, hypertension, and diastolic dysfunction, mild elevation in the troponin is secondary to supply and demand mismatch. EKG does not show any significant changes as compared to before. 2. Patient does have a murmur of aortic stenosis. RECOMMENDATIONS: We will add amlodipine 5 mg daily to better control the blood pressure and we will review her Lasix 20 mg IV b.i.d. for next 24 to 48 hours and the repeat the chest x-ray tomorrow. Echo and Doppler study will be done to assess the left ventricular systolic function.
[2016-12-21 16:36] LABS: Glucose,Whole Blood 137 mg/dL (75-99)
--- NOTE | 2016-12-21 19:56 | PN ---
DATE OF SERVICE: 12/21/2016 Patient is a 75-year-old white female, . She is FULL CODE. She is 5 feet 2 inches. Weight 55.09 kg. BSA 1.55 sq meter. BMI 22.2 kg/sq meter. ALLERGIES: 1. LATEX. 2. HYDROCODONE. 3. IBUPROFEN. 4. MORPHINE. The patient was seen today and evaluated. She had this morning Xanax and she has been sleeping significantly, with the history of agitation and pain issues associated with her allergy to most of the pain medication. At this time we will use the Xanax on a p.r.n. basis. Her temperature is 97.9, pulse 70, respiratory rate 16, blood pressure 129/60 with a mean pressure 83. Her oxygen saturation is improving to 98%. Patient has underlying congestive heart failure, acute in nature and diastolic, with no previous history of underlying chronic event. She has also underlying history during her hospital stay she desaturated and needed oxygen supplement of 6 L instead of 3 L with the presence of acute congestive heart failure which was documented; the troponin has been significantly elevated as well as her proBNP. The proBNP today is 8247. The troponin started with 0.116 and the second reading 0.092. The third reading will be done today. Underlying [id number] AL associated with the acute congestive heart failure. She had hypertension with blood pressure of 188 systolic with the underlying systolic hypertension with the hypertensive heart disease. Probably that was the issue. She has anemia with hemoglobin that dropped to 6.9 and at that time she was transfused 1 unit. When I examined her I found that she had a hematoma on her inner thigh, which will be the reason for the drop in hemoglobin. Patient had a venous duplex study of the left lower extremity which was negative, indicating no evidence of DVT. She also had an ultrasound of the abdomen because of questionable pain for the liver and because liver enzyme bilirubin was slightly elevated and AST was mildly elevated, probably from the congestive heart failure. Patient had previous cholecystectomy and no evidence of enlargement of liver or spleen. On the last laboratory that was done on December 20, her hemoglobin was 7.7. Patient was transfused yesterday 1 unit of iron dextran IV which will be the total transfused because of the drop of the iron, and she had anemia of iron deficiency. Her troponin on December 20 was 0.092, ( ); however, we will have one today, December 21, to see how it is improving. Her temperature is fine. Blood pressure now is improving with the Lasix given twice a day IV. Dr. Ammy Wolfe has seen the patient today, evaluated her, with the underlying congestive heart failure; however, his dictation is not available yet. With her elevated troponin, he started her on Lasix twice a day. Patient is on inhalation therapy and also on blood pressure medication with a history of hypertension with the hypertensive heart disease. She also has underlying depression and anxiety. She is diabetic as well. She is on insulin coverage. Her diabetes mellitus has been fairly well controlled. She is on monitor at this time. Also she is on antibiotic because of questionable infiltrate on the chest x-ray and the patient at that time was started on the Zosyn. The patient is already on a beta hilary Inderal and she is on MARILOU inhibitor. She is on statin, Lipitor. She will be continued on aspirin 81 mg once daily as well. Troponin today was found to be 0.057, gradually improving; however, still elevated at that level. PHYSICAL EXAMINATION: Patient is conscious; however, she is sleeping and deep asleep, resting from the pain that she had on her left hip. The lung is markedly improved but still rales bilaterally are present. She has inhalation therapy as well. The heart was sinus rhythm. I looked at the EKG for yesterday; one of them was indicating questionable atrial fibrillation but mostly sinus. Her blood pressure was controlled. The echocardiogram was indicating sinus rhythm, which was done today. There is moderate concentric left ventricular hypertrophy. Her ejection fraction is 55% to 60% and there is diastolic filling abnormality which indicates diastolic dysfunction with acute congestive heart failure not on top of chronic; we do not know in the past if she had any problem, so it is just acute diastolic heart failure. Her left atrium was dilated and the right atrium was normal in size. She had mild aortic valve sclerosis with the gradient across the valve being 16.30 with the possibility of mild stenosis. She had as well mild to moderate mitral regurgitation and the mitral valvular gradient is 9.83 mmHg and 3.06 for the mean. Mild mitral stenosis as well. She had tricuspid regurgitation and there is moderate pulmonary hypertension. The right ventricular systolic pressure by Doppler is 50.44, indicating also pulmonary hypertension. She had physiologic pulmonary regurgitation as well. With the underlying conclusion sinus rhythm with the peak/mean gradient across the aortic valve 16.30 mmHg over 7.35 mmHg and mitral valve moderately thickened and also underlying tricuspid regurgitation, mitral stenosis and pulmonary hypertension, as mentioned above. Ejection fraction is 55% to 60% with no impairment of her systolic function. Left atrial dilatation. The abdomen today is soft on examination. No tenderness in the 4 quadrants. EXTREMITIES: She had a hematoma in the inner left thigh. ASSESSMENT: 1. Her condition is still guarded. 2. Underlying acute congestive heart failure, diastolic in nature, associated with elevated troponin with the vyk-VP-bygejxf myocardial infarction considered. 3. Status post intertrochanteric fracture, status post hip surgery. 4. Anemia with blood loss secondary to hematoma in the inner thigh. Patient supplemented with iron and she had 1 unit of packed RBCs as well with 2 doses of iron. PLAN: Will continue the current treatment and continue the diuresis and monitoring the patient. She has been seen by Cardiology. Probably we will check her chest x-ray. If was not done today; we will do it tomorrow. Added BMP and beta natriuretic peptide and CBC with differential in a.m.
[2016-12-21 20:21] LABS: Glucose,Whole Blood 154 mg/dL (75-99)
[2016-12-21] MEDS ORDERED: POTASSIUM CHLORIDE ER 20 MEQ TAB.ER PO STA (20:28)
[2016-12-21] MEDS: SODIUM CHLORIDE 0.9% 1,000 ML IV SCH (22:22)
[2016-12-21] MEDS: DULoxetine HCL 20 MG CAPSULE.DR PO SCH (22:39)
[2016-12-21] MEDS: SENNOSIDES-DOCUSATE SODIUM 1 EACH TAB PO SCH (22:41)
[2016-12-22] MEDS: ALPRAZolam 0.25 MG TAB PO SCH ×2 (00:04→21:21)
[2016-12-22] MEDS: PIPERACILLIN-TAZOBACTAM 3.375 GM in DEXTROSE/WATER 1 50ML.BAG IVPB SCH ×4 (00:51→17:22)
[2016-12-22 01:59] VITALS: RESP 16
[2016-12-22] MEDS: POTASSIUM CHLORIDE ER 20 MEQ TAB.ER PO SCH ×5 (04:43→22:41)
[2016-12-22] MEDS: ACETAMINOPHEN TAB 500 MG TAB PO PRN ×2 (06:10→14:38)
[2016-12-22 06:53] LABS: Glucose,Whole Blood 126 mg/dL (75-99)
[2016-12-22 07:48] LABS: Anion Gap 9 mmol/L; Blood Urea Nitrogen 10 mg/dL (7-17); Calcium 8.4 mg/dL (8.4-10.2); Carbon Dioxide 28 mmol/L (22-30); Chloride 106 mmol/L (98-107); Glucose 117 mg/dL (74-99); Magnesium 1.8 mg/dL (1.6-2.3); Non-African American GFR(MDRD) >60 (>60 ml/min/1.73 sqM); Potassium 3.5 mmol/L (3.5-5.1); Sodium 143 mmol/L (137-145)
[2016-12-22] MEDS: IPRATROPIUM-ALBUTEROL 3 ML NEB INHALATION SCH ×3 (07:54→19:51)
[2016-12-22 08:02] LABS: Anisocytosis Moderate; Aty Lym Flag Slight; CH 30.7; CHCM 29.9; HCT 26.4 % (34.0-46.0); HDW 3.48; Hypochromasia Marked; MCH 31.4 pg (25.0-35.0); MCHC 30.3 g/dL (31.0-37.0); MCV 103.8 fL (80.0-100.0); Macrocytosis Moderate; Mean Platelet Volume 7.3; Poikilocytosis Slight; RBC 2.54 m/uL (3.80-5.40)
[2016-12-22] MEDS: ACETAMINOPHEN TAB 500 MG TAB PO SCH ×3 (08:47→21:22)
[2016-12-22] MEDS: CHOLECALCIFEROL 1,000 UNIT TAB PO SCH ×2 (08:48→21:19)
[2016-12-22] MEDS: ATORVASTATIN 10 MG TAB PO SCH (08:48)
[2016-12-22] MEDS: PROPRANOLOL 20 MG TAB PO SCH ×2 (08:48→21:19)
[2016-12-22] MEDS: LISINOPRIL 10 MG TAB PO SCH ×2 (08:49→22:42)
[2016-12-22] MEDS: FUROSEMIDE 10 MG/ML 2 ML VIAL IV SCH ×3 (08:49→22:42)
[2016-12-22] MEDS: ENOXAPARIN 40 MG/0.4 ML SYRINGE SQ SCH (08:49)
[2016-12-22] MEDS: amLODIPine 5 MG TAB PO SCH (08:49)
[2016-12-22] MEDS: INSULIN LISPRO (humaLOG) 300 UNIT/3 ML VIAL SQ SCH ×4 (08:50→21:30)
[2016-12-22] MEDS ORDERED: PANTOPRAZOLE 40 MG/10 ML VIAL IVP SCH (09:00)
[2016-12-22 11:21] LABS: Add Differential Manual Differential
[2016-12-22 11:26] LABS: Metamyelocytes % 0.5 %; Nucleated Red Blood Cells 1 /100 WBC (0-0); Polychromasia Present; Total Cells Counted 200; WBC 7.1 k/uL (3.8-10.6)
[2016-12-22 11:34] LABS: Glucose,Whole Blood 162 mg/dL (75-99)
--- NOTE | 2016-12-22 13:26 | P.PN ---
Subjective There is a dictation by Dr. John Hensley FACP on the progress note date of service 12/22/2016, in absence of Dr. Guy at PCP the attending physician is Dr. Dallas . Orthopedic surgeon. Patient seen today evaluated and she had significant improvement awake alert, able to eat. Patient is a postoperative started on Wednesday with the underlying mental confusion and lethargic with the diagnosis metabolic encephalopathy. Next line patient found to have rales and possible infiltrate diagnosis in association with the chest pain BNP indicating congestive heart failure acute in nature no previous history of chronic diastolic with the echo normal ejection fraction and inferior to the consultation with Dr. VC young. 3 troponin indicating elevation however no chest pain suggestive of supple endocardial ischemia with the possible acute non-Q non-ST segment PA. Patient on beta blockers, MARILOU inhibitor, statin, aspirin. Hypertension with hypertensive heart disease, started on amlodipine by Dr. VC francis. New diagnosis patient had drop of hemoglobin to 6.9 post surgery resulted in 1 units of packed RBCs transfusion. With the anemia secondary to blood loss and iron deficiency iron IV supplementation 125 mg IV piggyback 2 given. Her pro-BMP was elevated more than 4000, today is improving to 3150. Diabetes mellitus type 2 insulin-dependent, controlled. Resolved metabolic encephalopathy with the patient conscious alert oriented talking to her and sitting in the chair eating with stability her hemoglobin improved to 8. Was normal white count and normal platelet. Underlying probability of pneumonitis was considered with the association and a combination of acute congestive heart failure, lethargy and metabolic encephalopathy that chest x-ray could not clarify the issue of pneumonitis especially on the left lower basis and antibiotic was started with good response as well as the diuresis however still patient not completely cleared and her pro-BMP is still elevated, magnesium level is 1.8 calcium level8.4, estimated glomerular filtration rate more than 60 and the potassium was 3.5 Dgnq-zh-mdhd exam as mentioned patient's conscious alert oriented 3 her at bedside she is comfortable breathing her HEENT was negative the neck was supple and no JVD chest was markedly improvement however minimal rales on the basis, heart was regular sinus rhythm no gallop the abdomen was soft positive bowel sounds and extremities she had left inner thigh hematoma, and she had intertrochanteric fracture was operated upon by Dr. dallas. Blood pressure is still fluctuating 154/81 was still blood pressure is not well controlled. We will adjust her medication. No edema of the lower extremities and positive pulses with good perfusion. Assessment: Patient has significant improvement, diagnosis as mentioned above in detail. Plan patient will be seen tomorrow by Dr. Guy for the follow-up on his return. Plan long we'll increase lisinopril to 10 mg twice a day for better control of blood pressure. Lab in the morning. Objective - Vital Signs Vital signs: Vital Signs Temp 97.9 F 12/22/16 07:00 Pulse 78 12/22/16 08:07 Resp 16 12/22/16 07:00 BP 154/81 12/22/16 07:00 Pulse Ox 99 12/22/16 07:00 Intake & Output 12/21/16 12/22/16 12/22/16 18:59 06:59 18:59 Intake Total 250 Balance 250 Weight 55.091 kg Intake: Intake, IV Titration 250 Amount Piperacillin-Tazobactam 3 50 .375 gm In Dextrose/Water 1 50ml.bag @ 12.5 mls/hr IVPB Q8HR YAZMIN Rx#: [id number] Potassium Chloride 10 meq 100 Lidocaine 2% Inj 10 mg In Sodium Chloride 0.9% 100 ml @ 100 mls/hr IV Q1HR YAZMIN Rx#:[id number] Sodium Chloride 0.9% 1, 100 000 ml @ 20 mls/hr IV . Q24H YAZMIN Rx#:[id number] Other: Voiding Method Bedpan Bedpan # Voids 2 1 # Bowel Movements 1 3 - Labs CBC & Chem 7: 12/22/16 07:12 12/22/16 07:12 Labs: Abnormal Lab Results - Last 24 Hours (Table) 12/21/16 12/21/16 12/21/16 Range/Units 06:35 16:30 20:09 RBC (3.80-5.40) m/uL Hgb (11.4-16.0) gm/dL Hct (34.0-46.0) % MCV (80.0-100.0) fL MCHC (31.0-37.0) g/dL RDW (11.5-15.5) % Nucleated RBCs (0-0) /100 WBC Potassium (3.5-5.1) mmol/L Glucose (74-99) mg/dL POC Glucose (mg/dL) 137 H 154 H (75-99) mg/dL Troponin I 0.057 H* (0.000-0.034) ng/mL 12/22/16 12/22/16 12/22/16 Range/Units 02:50 06:50 07:12 RBC 2.54 L (3.80-5.40) m/uL Hgb 8.0 L (11.4-16.0) gm/dL Hct 26.4 L (34.0-46.0) % MCV 103.8 H (80.0-100.0) fL MCHC 30.3 L (31.0-37.0) g/dL RDW 23.0 H (11.5-15.5) % Nucleated RBCs 1 H (0-0) /100 WBC Potassium 3.3 L (3.5-5.1) mmol/L Glucose (74-99) mg/dL POC Glucose (mg/dL) 126 H (75-99) mg/dL Troponin I (0.000-0.034) ng/mL 12/22/16 12/22/16 Range/Units 07:12 11:28 RBC (3.80-5.40) m/uL Hgb (11.4-16.0) gm/dL Hct (34.0-46.0) % MCV (80.0-100.0) fL MCHC (31.0-37.0) g/dL RDW (11.5-15.5) % Nucleated RBCs (0-0) /100 WBC Potassium (3.5-5.1) mmol/L Glucose 117 H (74-99) mg/dL POC Glucose (mg/dL) 162 H (75-99) mg/dL Troponin I (0.000-0.034) ng/mL
--- NOTE | 2016-12-22 14:57 | XR ---
EXAMINATION TYPE: XR chest 1V portable DATE OF EXAM: 12/22/2016 2:49 PM Comparison: 12/21/2016 Clinical History: 75-year-old female CHF, follow-up Findings: The heart remains mildly enlarged. Hyperinflation with interstitial prominence though interstitial de nsities are slightly improved from prior. Patchy left basilar opacity remains with a small left pleur al effusion. Old healed fracture deformity left surgical neck of the humerus. Impression: 1. Correlate for COPD with improving mild CHF. 2. Some patchy edema or infiltrate remains at the left base with a small left pleural effusion.
--- NOTE | 2016-12-22 16:44 | PN ---
This patient was seen in consultation for congestive cardiac failure. Patient is feeling better. Her breathing is improved. Blood pressure is 154/81 mmHg. HEART: S1 and S2 normal. Lungs reveal a few basal rales. Chest x-ray done yesterday shows improvement in the congestive cardiac failure. The patient's BNP level has come down to 3100. I will continue the IV Lasix for 24 hours and switch her to the p.o. Lasix from tomorrow.
[2016-12-22 17:00] LABS: Glucose,Whole Blood 128 mg/dL (75-99)
[2016-12-22 21:02] LABS: Glucose,Whole Blood 159 mg/dL (75-99)
[2016-12-22] MEDS: SENNOSIDES-DOCUSATE SODIUM 1 EACH TAB PO SCH (21:19)
[2016-12-22] MEDS: SODIUM CHLORIDE 0.9% 1,000 ML IV SCH (21:29)
[2016-12-22] MEDS: DULoxetine HCL 20 MG CAPSULE.DR PO SCH (22:42)
[2016-12-23] MEDS: PIPERACILLIN-TAZOBACTAM 3.375 GM in DEXTROSE/WATER 1 50ML.BAG IVPB SCH ×2 (00:50→09:24)
[2016-12-23] MEDS: ACETAMINOPHEN TAB 500 MG TAB PO PRN ×2 (00:59→05:21)
[2016-12-23 07:00] LABS: Glucose,Whole Blood 134 mg/dL (75-99)
[2016-12-23] MEDS: IPRATROPIUM-ALBUTEROL 3 ML NEB INHALATION SCH ×2 (07:05→12:10)
[2016-12-23] MEDS ORDERED: PANTOPRAZOLE 40 MG TABLET PO SCH (07:30)
[2016-12-23 08:25] LABS: Anion Gap 8 mmol/L; Blood Urea Nitrogen 9 mg/dL (7-17); Calcium 8.8 mg/dL (8.4-10.2); Carbon Dioxide 24 mmol/L (22-30); Chloride 107 mmol/L (98-107); Glucose 122 mg/dL (74-99); Magnesium 1.8 mg/dL (1.6-2.3); Non-African American GFR(MDRD) >60 (>60 ml/min/1.73 sqM); Potassium 4.3 mmol/L (3.5-5.1); Sodium 139 mmol/L (137-145)
[2016-12-23 08:40] LABS: Anisocytosis Moderate; Basophils # (A) 0.1 k/uL (0-0.2); Basophils % (A) 1 %; CH 30.3; CHCM 29.9; Eosinophils # (A) 0.4 k/uL (0-0.7); Eosinophils % (A) 3 %; HCT 23.2 % (34.0-46.0); HDW 3.44; HGB 8.4 gm/dL (11.4-16.0); Hypochromasia Marked; Luc # (Auto) 0.44; Luc % (Auto) 3; Lymphocytes # (A) 4.2 k/uL (1.0-4.8); Lymphocytes % (A) 32 %; MCH 37.6 pg (25.0-35.0); MCHC 36.5 g/dL (31.0-37.0); MCV 103.1 fL (80.0-100.0); Macrocytosis Moderate; Mean Platelet Volume 7.4; Monocytes # (A) 1.6 k/uL (0-1.0); Monocytes % (A) 12 %; Neutrophils # (A) 6.3 k/uL (1.3-7.7); Neutrophils % (A) 49 %; Poikilocytosis Slight; RBC 2.25 m/uL (3.80-5.40); RDW 23.4 % (11.5-15.5); WBC 12.9 k/uL (3.8-10.6); WBC (Perox) 9.88
[2016-12-23] MEDS ORDERED: metFORMIN 500 MG TAB PO SCH (09:00)
[2016-12-23] MEDS ORDERED: amLODIPine 10 MG TAB PO SCH (09:00)
[2016-12-23] MEDS: ACETAMINOPHEN TAB 500 MG TAB PO SCH (09:14)
[2016-12-23] MEDS: INSULIN LISPRO (humaLOG) 300 UNIT/3 ML VIAL SQ SCH ×2 (09:15→13:10)
[2016-12-23] MEDS: ATORVASTATIN 10 MG TAB PO SCH (09:16)
[2016-12-23] MEDS: PROPRANOLOL 20 MG TAB PO SCH (09:16)
[2016-12-23] MEDS: LISINOPRIL 10 MG TAB PO SCH (09:16)
[2016-12-23] MEDS: CHOLECALCIFEROL 1,000 UNIT TAB PO SCH (09:16)
[2016-12-23] MEDS: ENOXAPARIN 40 MG/0.4 ML SYRINGE SQ SCH (09:19)
[2016-12-23] MEDS: FUROSEMIDE 10 MG/ML 2 ML VIAL IV SCH (09:19)
--- NOTE | 2016-12-23 10:03 | CDI ---
In responding to this query, please exercise your independent professional judgment. The [facility] Coding Staff and Clinical Documentation Specialists appreciate your assistance in clarifying documentation, maintaining compliance with coding guidelines, accurately documenting patients condition and capturing severity of illness. The fact that a question is asked does not imply that any particular answer is desired or expected. Communication forms are a method of clarifying documentation and are not made part of the Legal Health Record. Thank you in advance for your clarification. Last Revision, November 2015 Ashley Escalante [address] [facility] [place] [address] Documentation Clarification Form Date: 12/21/2016 9:42:00 AM From: Emmanuel Phillips, RN, BSN, CDI Admit Date: 12/14/2016 4:04:00 AM Patient Name: Ashlie Landrum Visit Number: [id number] Dr. Sachin Lopez: History/Risk Factors: 75 yo female with a history of COPD and chronic respiratory failure, presents s/p fall with left hip IT fracture s/p ORIF Tobacco use: former smoker Home oxygen: "as needed" Clinical Indicators: the patient is noted to be "lethargic" Lung/Breathing assessment: "rhonchi and crackles, rales in the bases" CXR: findings consistent w/CHF Treatment: Oxygen 6L NC, Lasix 20mg IVP x1, Lasix increased to 40mg PO QD Breathing tx: duonelisa Zosyn O2: 90-91% 6L In your professional opinion, can you please clarify if these findings signify one of the following conditions? Acuity: o Chronic o Acute on Chronic Respiratory Status: o Respiratory failure o Respiratory failure with hypercapnia o Respiratory failure with hypoxia o Acute Respiratory Distress o Other Diagnosis, please specify o Unable to determine Please document in your progress notes and discharge summary in order to capture severity of illness and risk of mortality. Include clinical findings that support your diagnosis. FYI: Press F11 to launch patient chart. Place X here if this finding has no clinical significance, is not applicable or if you are not able to provide any additional documentation. TONEY
[2016-12-23 10:34] LABS: Manual Review Performed
[2016-12-23 10:35] LABS: Polychromasia Present
[2016-12-23 11:49] LABS: Glucose,Whole Blood 144 mg/dL (75-99)
[2016-12-23 14:42] VITALS: BP 148/71; PULSE 76; TEMP 97.9
--- NOTE | 2016-12-23 16:54 | PN ---
Inquiry was requested from Jemima Wahl R.N. on a patient of Dr. Guy. The question they are requesting, which I did answer before in the record: Patient had underlying acute event as patient was not known to me before and there was first day of service found she had short of breath and that was acute in nature with desaturation considered as respiratory distress or failure to increase the oxygen supplementation due to acute congestive heart failure. No evidence of previous history or chronicity and with no further answering more than this information. This is the answering for the inquiry. Also, patient had Zosyn because was unclear by the chest x-ray pneumonia or congestive heart failure. However, with the event and increased temperature, we probably had mild pneumonitis which probably she will be improved subsequently with the IV antibiotic. This is the end of the first inquiry that was requested by Jemima Wahl.
--- NOTE | 2016-12-24 08:36 | PN ---
DATE OF SERVICE: 12/23/2016 CHIEF COMPLAINT: Re-evaluation. HISTORY OF PRESENT ILLNESS: This 75-year-old female was admitted to the hospital following a fractured hip. The patient had an ORIF. The patient is postoperative. He had some complications including congestive cardiac failure secondary to diastolic dysfunction. The patient's CHF was probably exacerbated by anemia. The patient had blood loss at the site of surgery. No evidence of any other GI bleeding. She does have underlying history of chronic respiratory failure and COPD. These have remained stable. Hypoxia has improved with diuresis. The patient is actually feeling better. She does have some pulmonary hypertension. She is pleasant with mild confusion at times. The patient is, at present, sitting up in the chair with no symptoms. The pain is tolerable. She is 2-person assist to get up in a chair. The patient otherwise is going to require transfer to nursing facility for rehab. REVIEW OF SYSTEMS: NEURO: Denies any headaches, dizziness. PSYCH: Intermittent confusion, pleasant. The patient does not realize that she is mildly confused. She, for example, thought I was the nascar driver she saw in the [employer]. The patient, though, realizes that I am the doctor and she knows me by my name. CARDIAC: Denies chest pain, angina, palpitations. RESPIRATORY: Denies shortness of breath. Mild chronic cough. No hemoptysis. GI: No nausea, vomiting, abdominal pain. No bowel movement today. She did have bowel movements yesterday with no blood or melanotic stool. : No symptoms. EXTREMITIES: Pain in the left hip joint and chronic right knee pain. CONSTITUTIONAL: No fever or chills. PHYSICAL EXAMINATION: Pleasant female, in no distress. VITAL SIGNS: Temperature 98, pulse 81, respirations 16, blood pressure 144/50, pulse ox 98% on 2 L. HEENT: Normocephalic. NECK: No JVD. CHEST: Clear to auscultation with mild generalized decreased air flow. No dullness to percussion. CARDIAC: Distant heart sounds. S1, S2 with no gallops. Regular rhythm. Systolic murmur 2/6 left sternal border. ABDOMEN: Soft. Bowel sounds present. EXTREMITIES: Trace edema. NEUROLOGIC: Awake, alert, oriented to place and person. She knows that she is supposed to go to [facility] rehab but is intermittently mildly confused. Moves both upper extremities freely in adequately appropriate fashion. LABORATORY ASSESSMENT: Hemoglobin is 8.4, white count 12.9, platelets were 32. Electrolytes are normal. BUN 9, creatinine 0.5, glucose 122. ASSESSMENT: 1. Anemia secondary to acute blood loss. 2. Acute congestive cardiac failure secondary to diastolic dysfunction, resolved, probably exacerbated by anemia. 3. Status post left hip open reduction and internal fixation. 4. Degenerative arthritis right knee joint. 5. Chronic respiratory failure with chronic obstructive pulmonary disease. 6. Mild pulmonary hypertension. 7. Diabetes mellitus. 8. Chronic anxiety disorder. 9. Metabolic encephalopathy. PLAN: The patient is stable. Continue present medical regimen. The patient's condition discussed with the patient. Prognosis guarded. She is going to be transferred to a nursing facility for rehab. Patient's condition was discussed with the patient.
--- NOTE | 2017-02-11 10:11 | P.DS ---
Providers Date of admission: 12/14/16 04:04 Expected date of discharge: 12/23/16 Attending physician: Guillermo Javier Consults: 12/20/16 13:47 Consult Physician Stat Consulting Provider: Chris Ireland Consult Reason/Comments: abnormal EKG Do you want consulting provider notified?: Yes Primary care physician: Omar Guy [facility] Course: Date of admission: 12/14/2016 Date of discharge: 12/23/2016 Admission diagnosis: Displaced and comminuted left intertrochanteric hip fracture Discharge diagnosis: Status post open reduction internal fixation left intertrochanteric hip fracture Attending physician: Dr. Javier Surgical procedures: Open reduction internal fixation left intertrochanteric hip fracture Brief history: Patient is a 76-year-old female who was brought to the hospital on 12/14/2016 after sustaining a fall while trying to get out of bed. She fell directly on the left hip and was unable to weight-bear. She was brought to [facility], images demonstrated a displaced and comminuted left intertrochanteric hip fracture. Patient was made nothing per mouth, we proceeded with an open reduction internal fixation procedure of the left hip afternoon of 12/14/2016. Hospital course: Details of patient's surgery can be found in operative report. Patient tolerated the procedure well and was subsequently transported to orthopedic floor. Patient's orthopeidc and medical care was provided daily. Patient had daily laboratory tests performed for evaluation of overall blood counts. Patient had daily physical therapy to include strengthening range of motion as well as education with walker ambulation. Patient was treated with Lovenox for their postoperative DVT prophylaxis during their inpatient stay. Patient was noted to have a relatively uneventful postoperative course. Patient reported satisfactory pain control with oral pain medications by postoperative day 1. Patient showed satisfactory progress with physical therapy. Patient moved steadily through the program and had no difficulty meeting the goals by postoperative day 9. Given patient's otherwise satisfactory course and having met physical therapy goals, plan is to discharge patient rehab on postoperative day 9. Discharge condition/disposition: Patient will be discharged rehab in stable condition. Discharge medications: Instructions are given on resumption of patient's normal daily medications per primary care recommendation, in addition patient will be prescribed Xanax 0.25 mg, Lovenox 40 mg. Discharge instructions: 1. Wound care and infection precautions, keep incision dry and covered while showering, no lotions, creams, moisturizers. No soaking, tubs, pools, hottubs. Do not scrub over the incision. 2. Nonweightbearing left lower extremity 3. Ice and elevate when necessary. Do not exceed 20 minutes per hour with ice pack. 4. Utilize compression sleeve until seen at first follow up appointment. 5. Visiting nursing care. 6. Home physical therapy. 7. Pain meds and anticoagulants per prescription. 8. Pain medication has potential to cause constipation. Increase oral fluid and fiber intake. Contact primary care provider if you have not had a bowel movement within 48 hours after discharge 9. No anti-inflammatory medication until discussed at first post operative visit, this including Motrin, Aleve, Mobic, Diclofenac. 10. Follow up in office at 2 weeks postop with Dangelo Brownlee PA-C 11. Follow up with your primary care doctor 7-10 days after discharge. 12. Contact [facility] with any questions, . Procedures: Open reduction internal fixation left intertrochanteric hip fracture Patient Condition at Discharge: Fair Plan - Discharge Summary New Discharge Prescriptions: ALPRAZolam [Xanax] 0.25 mg PO DIRECTED #60 tab Enoxaparin [Lovenox] 40 mg SQ DAILY #21 syringe Discharge Medication List Cholecalciferol (Vitamin D3) [Vitamin D3] 5,000 unit PO BID 06/01/14 [History] Pantoprazole Sodium [Protonix] 40 mg PO DAILY 06/22/14 [History] Atorvastatin [Lipitor] 10 mg PO DAILY 09/07/14 [History] DULoxetine HCL 40 mg PO HS@2100 07/08/16 [History] Propranolol [Inderal] 20 mg PO BID tab 08/18/16 [Rx] Meclizine [Antivert] 25 mg PO TID PRN 12/14/16 [History] metFORMIN HCL ER [Glucophage Xr] 500 mg PO BID 12/14/16 [History] Enoxaparin [Lovenox] 40 mg SQ DAILY #21 syringe 12/18/16 [Rx] Furosemide [Lasix] 20 mg PO QAM 12/18/16 [History] Turmeric Root Extract [Turmeric] 500 mg PO DAILY 12/18/16 [History] Vit C/E/Zn/Coppr/Lutein/Zeaxan [Preservision Areds 2 Softgel] 1 cap PO BID 12/18 [History] ALPRAZolam [Xanax] 0.25 mg PO DIRECTED #60 tab 12/23/16 [Rx] Acetaminophen Tab [Tylenol] 1,000 mg PO TID tab 12/23/16 [Rx] Acetaminophen Tab [Tylenol] 500 mg PO Q4HR PRN #0 tab 12/23/16 [Rx] Cholecalciferol [Vitamin D3] 5,000 unit PO BID tab 12/23/16 [Rx] Enoxaparin [Lovenox] 40 mg SQ DAILY syringe 12/23/16 [Rx] INSULIN LISPRO (humaLOG) [humaLOG (formulary)] 0 unit SQ ACHS vial 12/23/16 [Rx ] Ipratropium-Albuterol Nebulize [Duoneb 0.5 mg-3 mg/3 ml Soln] 3 ml INHALATION RT -Q2H PRN #0 ampul.neb 12/23/16 [Rx] Lisinopril [Zestril] 10 mg PO BID tab 12/23/16 [Rx] Magnesium Hydroxide [Milk of Magnesia Concentrate] 2,400 mg PO DAILY PRN #0 ml 12/23/16 [Rx] Pantoprazole [Protonix] 40 mg PO AC-BRKFST tablet. 12/23/16 [Rx] Propranolol [Inderal] 20 mg PO BID tab 12/23/16 [Rx] Sennosides-Docusate Sodium [Senokot-S] 2 each PO HS tab 12/23/16 [Rx] amLODIPine [Norvasc] 10 mg PO DAILY tab 12/23/16 [Rx] Follow up Appointment(s)/Referral(s): Omar Guy MD [Primary Care Provider] - 1-2 days Federico Brownlee PAC [PHYSICIAN AQUATIC ECOLOGIST] - 01/06/17 1:30 pm Activity/Diet/Wound Care/Special Instructions: Orthopedic Discharge Instructions: 1. Wound care and infection precautions, [keep incision dry and covered while showering], no lotions, creams, moisturizers. No soaking, pools, hot tubs. Do not scrub over incision. 2. Nonweightbearing left leg 3. Ice and elevate when necessary. Do not exceed 20 minutes per hour with ice pack. 4. Pain meds and anticoagulants per prescription. 5. Pain medication has potential to cause constipation. Increase oral fluid and fiber intake. Contact primary care provider if you have not had a bowel movement within 48 hours after discharge. 6. No anti-inflammatory medication until discussed at first post operative visit, this including Motrin, Aleve, Mobic, Diclofenac, [Aspirin]. 7. Follow up in office at 2 weeks postop with Dangelo Brownlee PA-C 8. Follow up with your primary care doctor 7-10 days after discharge. 9. Contact [facility] with any questions, . Discharge Disposition: TRANSFER TO SNF/ECF
== END 2016-12-23 14:55 | DRG 480 ==
LOC: EC 02:30 → 3SUR 04:04
PROVIDERS: ADMIT Orthopaedic Surgery; ATTEND Orthopaedic Surgery
PROC: 0QS704Z Reposition Left Upper Femur with Internal Fixation Device, Open Approach (ICD-10-PCS; principal; 2016-12-14 14:34)
PROC: 30233N1 Transfusion of Nonautologous Red Blood Cells into Peripheral Vein, Percutaneous Approach (ICD-10-PCS; 2016-12-16)
DX: S72.142A Displaced intertrochanteric fracture of left femur, initial encounter for closed fracture (principal); G93.41 Metabolic encephalopathy; I50.31 Acute diastolic (congestive) heart failure; J96.11 Chronic respiratory failure with hypoxia; D62 Acute posthemorrhagic anemia; I27.2 Other secondary pulmonary hypertension; I11.0 Hypertensive heart disease with heart failure; E11.9 Type 2 diabetes mellitus without complications; D63.8 Anemia in other chronic diseases classified elsewhere; D50.9 Iron deficiency anemia, unspecified; F32.9 Major depressive disorder, single episode, unspecified; I08.3 Combined rheumatic disorders of mitral, aortic and tricuspid valves; F41.0 Panic disorder [episodic paroxysmal anxiety]; G47.00 Insomnia, unspecified; K21.9 Gastro-esophageal reflux disease without esophagitis; F41.9 Anxiety disorder, unspecified; J44.9 Chronic obstructive pulmonary disease, unspecified; R45.1 Restlessness and agitation; R32 Unspecified urinary incontinence; S50.11XA Contusion of right forearm, initial encounter; S70.12XA Contusion of left thigh, initial encounter; Z79.84 Long term (current) use of oral hypoglycemic drugs; Z79.899 Other long term (current) drug therapy; Z96.651 Presence of right artificial knee joint; Z87.891 Personal history of nicotine dependence; Z91.040 Latex allergy status; Z88.6 Allergy status to analgesic agent; Z88.5 Allergy status to narcotic agent; Z82.49 Family history of ischemic heart disease and other diseases of the circulatory system; W01.0XXA Fall on same level from slipping, tripping and stumbling without subsequent striking against object, initial encounter; Y92.9 Unspecified place or not applicable
CPT/HCPCS: 36415; 70450; 71010; 71020; 72125; 73502; 76700; 80048; 80053; 80076; 81001; 82550; 82553; 82728; 83540; 83550; 83605; 83690; 83735; 83880; 84100; 84132; 84443; 84484; 85025; 85045; 85610; 85730; 86850; 86900; 86901; 86920; 87086; 93005; 93306; 94640; 94760; 96360; 99285

== ENCOUNTER 2017-05-12 13:37 | Inpatient (IN) | payer MEDICARE, BC, OTHER ==
[2017-05-12] MEDS ORDERED: SODIUM CHLORIDE 0.9% 500 ML IV ONE (13:55)
--- NOTE | 2017-05-12 13:58 | ED ---
General Adult HPI - General Stated complaint: Low Hemoglobin Time Seen by Provider: 05/12/17 13:40 Source: RN notes reviewed - History of Present Illness Initial comments: This is a 76-year-old female who presents emergency Department complaining that her hemoglobin was 5.0. She was told by her physician and come to the emergency department. Patient denies any vomiting or diarrhea. Patient denies any pain currently. Patient states she needs a blood transfusion back in January but doesn't know why. Patient is a very poor historian fills in most of the details. states patient is moaning and groaning constantly for many weeks now. He states she does not specifically say anything hurts when she is asked she denies anything hurting. He states he has not noticed the patient vomiting or having any diarrhea. He has not noticed the patient altered more than normal she states she has been altered slightly ever since her knee surgery in June. Patient denies any headache patient denies any numbness or weakness. Patient denies any recent fever chills or cough. - Related Data Home Medications Medication Instructions Recorded Confirmed Cholecalciferol (Vitamin D3) 5,000 unit PO BID@0800,1700 06/01/14 05/12/17 [Vitamin D3] Pantoprazole Sodium [Protonix] 40 mg PO DAILY@0600 06/22/14 05/12/17 Atorvastatin [Lipitor] 10 mg PO DAILY@0800 09/07/14 05/12/17 DULoxetine HCL 40 mg PO DAILY@0800 07/08/16 05/12/17 Meclizine [Antivert] 25 mg PO TID PRN 12/14/16 05/12/17 Turmeric Root Extract [Turmeric] 500 mg PO DAILY@1700 12/18/16 05/12/17 Vit C/E/Zn/Coppr/Lutein/Zeaxan 1 cap PO BID@0800,1700 12/18/16 05/12/17 [Preservision Areds 2 Softgel] ALPRAZolam [Xanax] 0.25 mg PO BID PRN 05/12/17 05/12/17 ALPRAZolam [Xanax] 0.25 mg PO BID@0600,1400 05/12/17 05/12/17 ALPRAZolam [Xanax] 1 mg PO HS@2100 05/12/17 05/12/17 Acetaminophen Tab [Tylenol] 1,000 mg PO TID@0000,1000,1700 05/12/17 05/12/17 Bisacodyl [Dulcolax] 10 mg RECTAL DAILY PRN 05/12/17 05/12/17 Ensure Clear 240 ml PO BID@0800,1700 05/12/17 05/12/17 Ferrous Sulfate [Feosol] 325 mg PO DAILY@17005/12/17 05/12/17 Furosemide [Lasix] 20 mg PO BID@0600,1400 05/12/17 05/12/17 INSULIN LISPRO (humaLOG) [humaLOG See Protocol SQ 05/12/17 05/12/17 (formulary)] ACHS@07,11,1730,2130 Lisinopril [Zestril] 10 mg PO BID@0800,1700 05/12/17 05/12/17 Magnesium Hydroxide [Milk of 2,400 mg PO DAILY PRN 05/12/17 05/12/17 Magnesia] Methylphenidate HCl [Ritalin] 5 mg PO BID@0800,1500 05/12/17 05/12/17 Na Phos,M-B/Na Phos,Di-Ba [Fleet 133 ml RECTAL DAILY PRN 05/12/17 05/12/17 Adult] Potassium Chloride ER [K-Dur 10] 10 meq PO DAILY@17005/12/17 05/12/17 Propranolol [Inderal] 20 mg PO BID@0800,1700 05/12/17 05/12/17 Sennosides-Docusate Sodium 2 tab PO HS@2100 05/12/17 05/12/17 [Senokot-S] amLODIPine [Norvasc] 10 mg PO DAILY@0800 05/12/17 05/12/17 metFORMIN HCL [Glucophage] 500 mg PO BID@0800,1700 05/12/17 05/12/17 Previous Rx's Medication Instructions Recorded Acetaminophen Tab [Tylenol] 500 mg PO Q4HR PRN #0 tab 12/23/16 Ipratropium-Albuterol Nebulize 3 ml INHALATION RT-Q2H PRN #0 12/23/16 [Duoneb 0.5 mg-3 mg/3 ml Soln] ampul.neb Allergies Allergy/AdvReac Type Severity Reaction Status Date / Time latex Allergy Rash/Hives Verified 05/12/17 14:00 hydrocodone bitartrate AdvReac Nausea & Verified 05/12/17 14:00 [From Vicodin] Vomiting ibuprofen [From Motrin] AdvReac Nausea & Verified 05/12/17 14:00 Vomiting morphine AdvReac Nausea & Verified 05/12/17 14:00 Vomiting Review of Systems ROS Statement: Those systems with pertinent positive or pertinent negative responses have been documented in the HPI. ROS Other: All systems not noted in ROS Statement are negative. Past Medical History Past Medical History: Diabetes Mellitus, GERD/Reflux, Hypertension, Renal Disease Additional Past Medical History / Comment(s): vertigo, recent left proximal humerus fx, UTI;S, HX FALLS, ANEMIA, RENAL INSUFICIENCY/FAILURE, HOME OXYGEN 2.5 liters as needed. PER PTS WAS TOLD SHE MAY HAVE EARLY SINGS OF DEMENTIA History of Any Multi-Drug Resistant Organisms: None Reported Past Surgical History: Cholecystectomy, Hysterectomy Additional Past Surgical History / Comment(s): dental surgery-JAW SX BONE TAKEN FROM HIP TO USE., KNEE SURGERY, cataracts, 07-20-16 total rt knee Past Anesthesia/Blood Transfusion Reactions: Motion Sickness Past Psychological History: Anxiety, Depression, Panic Disorder Additional Psychological History / Comment(s): livs with spouse, uses walker. has home 02. Smoking Status: Former smoker Past Alcohol Use History: None Reported Additional Past Alcohol Use History / Comment(s): STARTED SMOKING AT AGE 16, SMOKED 1 PPD X 50 YEARS Past Drug Use History: None Reported - Past Family History Father History Unknown: Yes Additional Family Medical History / Comment(s): Father had a heart valve replacement surgery at approx. age 75. Mother Family Medical History: CVA/TIA General Exam - General Exam Comments Initial Comments: GENERAL: Patient is well-developed and well-nourished. Patient is nontoxic and well- hydrated and is in mild distress. ENT: Neck is soft and supple. No significant lymphadenopathy is noted. Oropharynx is clear. Moist mucous membranes. Neck has full range of motion without eliciting any pain. EYES: The sclera were anicteric and conjunctiva were pink and moist. Extraocular movements were intact and pupils were equal round and reactive to light. Eyelids were unremarkable. PULMONARY: Unlabored respirations. Good breath sounds bilaterally. No audible rales rhonchi or wheezing was noted. CARDIOVASCULAR: There is a regular rate and rhythm without any murmurs gallops or rubs. ABDOMEN: Soft and nontender with normal bowel sounds. No palpable organomegaly was noted. There is no palpable pulsatile mass. SKIN: Patient's skin is pale. NEUROLOGIC: Patient is alert and oriented 2. Cranial nerves II through XII are grossly intact. Motor and sensory are also intact. Normal speech, volume and content. Symmetrical smile. MUSCULOSKELETAL: Normal extremities with adequate strength and full range of motion. No lower extremity swelling or edema. No calf tenderness. LYMPHATICS: No significant lymphadenopathy is noted PSYCHIATRIC: Normal psychiatric evaluation. No signs of depression. No signs of anxiety. Course Vital Signs 05/12/17 13:57 Temperature 98.0 F Pulse Rate 98 Respiratory 22 Rate Blood Pressure 115/52 O2 Sat by Pulse 99 Oximetry Medical Decision Making - Medical Decision Making EKG shows sinus rhythm with PACs at 82 bpm VT interval 180 QRS is 90 QT intervals 432 QTC is 504. Patient's EKG shows no ST segment elevation or depression or T-wave abdomen is noted - Lab Data Result diagrams: 05/12/17 14:01 05/12/17 14:01 Lab Results 05/12/17 05/12/17 05/12/17 Range/Units 13:50 14:01 14:01 WBC 8.2 (3.8-10.6) k/uL RBC 2.11 L (3.80-5.40) m/uL Hgb 6.9 L* (11.4-16.0) gm/dL Hct 21.5 L (34.0-46.0) % MCV 101.7 H (80.0-100.0) fL MCH 32.8 (25.0-35.0) pg MCHC 32.2 (31.0-37.0) g/dL RDW 19.9 H (11.5-15.5) % Plt Count 372 (150-450) k/uL Neutrophils % 62 % Lymphocytes % 22 % Monocytes % 7 % Eosinophils % 4 % Basophils % 1 % Neutrophils # 5.1 (1.3-7.7) k/uL Lymphocytes # 1.8 (1.0-4.8) k/uL Monocytes # 0.6 (0-1.0) k/uL Eosinophils # 0.3 (0-0.7) k/uL Basophils # 0.1 (0-0.2) k/uL Anisocytosis Slight Macrocytosis Moderate PT (9.0-12.0) sec INR (<1.2) APTT (22.0-30.0) sec Sodium (137-145) mmol/L Potassium (3.5-5.1) mmol/L Chloride (98-107) mmol/L Carbon Dioxide (22-30) mmol/L Anion Gap mmol/L BUN (7-17) mg/dL Creatinine (0.52-1.04) mg/dL Est GFR (MDRD) Af Amer (>60 ml/min/1.73 sqM) Est GFR (MDRD) Non-Af (>60 ml/min/1.73 sqM) Glucose (74-99) mg/dL Calcium (8.4-10.2) mg/dL Total Bilirubin (0.2-1.3) mg/dL AST (14-36) U/L ALT (9-52) U/L Alkaline Phosphatase (38-126) U/L Total Creatine Kinase 40 (30-135) U/L Total Protein (6.3-8.2) g/dL Albumin (3.5-5.0) g/dL Stool Occult Blood Positive H (Negative) 05/12/17 05/12/17 Range/Units 14:01 14:01 WBC (3.8-10.6) k/uL RBC (3.80-5.40) m/uL Hgb (11.4-16.0) gm/dL Hct (34.0-46.0) % MCV (80.0-100.0) fL MCH (25.0-35.0) pg MCHC (31.0-37.0) g/dL RDW (11.5-15.5) % Plt Count (150-450) k/uL Neutrophils % % Lymphocytes % % Monocytes % % Eosinophils % % Basophils % % Neutrophils # (1.3-7.7) k/uL Lymphocytes # (1.0-4.8) k/uL Monocytes # (0-1.0) k/uL Eosinophils # (0-0.7) k/uL Basophils # (0-0.2) k/uL Anisocytosis Macrocytosis PT 10.6 (9.0-12.0) sec INR 1.0 (<1.2) APTT 20.8 L (22.0-30.0) sec Sodium 139 (137-145) mmol/L Potassium 4.4 (3.5-5.1) mmol/L Chloride 104 (98-107) mmol/L Carbon Dioxide 21 L (22-30) mmol/L Anion Gap 14 mmol/L BUN 41 H (7-17) mg/dL Creatinine 1.10 H (0.52-1.04) mg/dL Est GFR (MDRD) Af Amer 59 (>60 ml/min/1.73 sqM) Est GFR (MDRD) Non-Af 48 (>60 ml/min/1.73 sqM) Glucose 181 H (74-99) mg/dL Calcium 11.3 H (8.4-10.2) mg/dL Total Bilirubin 0.4 (0.2-1.3) mg/dL AST 28 (14-36) U/L ALT 27 (9-52) U/L Alkaline Phosphatase 66 (38-126) U/L Total Creatine Kinase (30-135) U/L Total Protein 6.4 (6.3-8.2) g/dL Albumin 3.6 (3.5-5.0) g/dL Stool Occult Blood (Negative) Disposition Clinical Impression: GI bleed, Anemia Disposition: ADMITTED IP TO THIS [facility] Referrals: Omar Guy MD [Primary Care Provider] - 1-2 days Time of Disposition: 14:48
[2017-05-12 14:18] LABS: Anisocytosis Slight; Basophils # (A) 0.1 k/uL (0-0.2); Basophils % (A) 1 %; CH 33.2; CHCM 32.9; Eosinophils # (A) 0.3 k/uL (0-0.7); Eosinophils % (A) 4 %; HCT 21.5 % (34.0-46.0); HDW 3.34; Luc # (Auto) 0.27; Luc % (Auto) 3; Lymphocytes # (A) 1.8 k/uL (1.0-4.8); Lymphocytes % (A) 22 %; MCH 32.8 pg (25.0-35.0); MCHC 32.2 g/dL (31.0-37.0); MCV 101.7 fL (80.0-100.0); Macrocytosis Moderate; Mean Platelet Volume 7.5; Monocytes # (A) 0.6 k/uL (0-1.0); Monocytes % (A) 7 %; Neutrophils # (A) 5.1 k/uL (1.3-7.7); Neutrophils % (A) 62 %; RBC 2.11 m/uL (3.80-5.40); RDW 19.9 % (11.5-15.5); WBC 8.2 k/uL (3.8-10.6); WBC (Perox) 8.18
[2017-05-12 14:31] LABS: HGB 6.9 gm/dL (11.4-16.0)
[2017-05-12 14:33] LABS: Prothrombin Time 10.6 sec (9.0-12.0)
[2017-05-12 14:34] LABS: Calcium 11.3 mg/dL (8.4-10.2); Potassium 4.4 mmol/L (3.5-5.1); Total Bilirubin 0.4 mg/dL (0.2-1.3); Total Protein 6.4 g/dL (6.3-8.2)
--- NOTE | 2017-05-12 14:34 | XR ---
EXAMINATION TYPE: XR chest 2V DATE OF EXAM: 05/12/2017 COMPARISON: 12/22/2016 HISTORY: Altered mental status and chest pain TECHNIQUE: Frontal and lateral views of the chest are obtained. FINDINGS: There is no focal air space opacity, pleural effusion, or pneumothorax seen. Left midlung platelike subsegmental atelectasis is noted. Flattening of the diaphragms is noted on the lateral im age as well as pulmonary hyperinflation. The cardiac silhouette size is within normal limits. Old fra cture deformity is seen of the surgical neck of the left humerus. Previously seen left pleural effusi on has resolved. IMPRESSION: 1. Resolution of the previously seen left basilar opacity and pleural effusion. Minimal left midlung platelike subsegmental atelectasis remains. 2. Radiographic sequela of COPD.
[2017-05-12 14:36] LABS: Partial Thromboplastin Time 20.8 sec (22.0-30.0)
[2017-05-12 14:47] LABS: Creatine Kinase MB 2.4 ng/mL (0.0-2.4)
[2017-05-12 14:50] LABS: Troponin I 0.1 ng/mL (0.000-0.034)
[2017-05-12 15:00] LABS: Glucose,Whole Blood 177 mg/dL (75-99)
[2017-05-12] MEDS ORDERED: SODIUM CHLORIDE 0.9% 1,000 ML IV ONE (15:04)
[2017-05-12 15:39] LABS: Appearance,Urine Clear (Clear); Bilirubin,Urine Negative (Negative); Glucose,Urine (UA) Negative (Negative); Ketones,Urine Negative (Negative); Leukocyte Esterase,Urine Negative (Negative); Nitrite,Urine Negative (Negative); PH, Urine 5.5 (5.0-8.0); Protein,Urine Negative (Negative); Specific Gravity,Urine 1.009 (1.001-1.035); UA Billing (MACRO vs. MICRO) CHEM; Urobilinogen,Urine <2.0 mg/dL (<2.0)
[2017-05-12] MEDS ORDERED: LORazepam 2 MG/ML SYRINGE IV STA (15:40)
[2017-05-12 15:46] LABS: Anisocytosis Moderate; Basophils # (A) 0.1 k/uL (0-0.2); Basophils % (A) 1 %; CHCM 32.7; Eosinophils # (A) 0.3 k/uL (0-0.7); Eosinophils % (A) 4 %; HDW 3.33; Hypochromasia Slight; Luc # (Auto) 0.31; Luc % (Auto) 4; Lymphocytes # (A) 1.8 k/uL (1.0-4.8); Lymphocytes % (A) 25 %; MCH 32.8 pg (25.0-35.0); MCHC 32.2 g/dL (31.0-37.0); MCV 101.9 fL (80.0-100.0); Macrocytosis Moderate; Mean Platelet Volume 7.6; Monocytes # (A) 0.6 k/uL (0-1.0); Monocytes % (A) 8 %; Neutrophils # (A) 4.3 k/uL (1.3-7.7); Neutrophils % (A) 58 %; WBC 7.4 k/uL (3.8-10.6); WBC (Perox) 7.47
[2017-05-12 15:49] LABS: HCT 19.3 % (34.0-46.0); HGB 6.2 gm/dL (11.4-16.0)
[2017-05-12 16:41] LABS: Reticulocyte % 9.6 % (0.5-2.0)
[2017-05-12] MEDS: PROPRANOLOL 20 MG TAB PO SCH (16:53)
[2017-05-12] MEDS: LISINOPRIL 10 MG TAB PO SCH (16:53)
[2017-05-12] MEDS ORDERED: ACETAMINOPHEN TAB 500 MG TAB PO SCH (17:00)
[2017-05-12] MEDS ORDERED: ENSURE CLEAR PO SCH (17:00)
[2017-05-12 17:03] LABS: Glucose,Whole Blood 108 mg/dL (75-99)
[2017-05-12] MEDS: INSULIN LISPRO (humaLOG) 300 UNIT/3 ML VIAL SQ SCH ×2 (18:36→21:14)
[2017-05-12] MEDS: ALPRAZolam 0.5 MG TAB PO SCH (19:14)
[2017-05-12] MEDS: SENNOSIDES-DOCUSATE SODIUM 1 EACH TAB PO SCH (20:05)
[2017-05-12 20:48] LABS: Glucose,Whole Blood 129 mg/dL (75-99)
[2017-05-13] MEDS: ALPRAZolam 0.25 MG TAB PO PRN ×2 (01:33→11:45)
[2017-05-13] MEDS: ACETAMINOPHEN TAB 500 MG TAB PO PRN ×3 (04:52→20:05)
[2017-05-13 05:54] LABS: Glucose,Whole Blood 161 mg/dL (75-99)
[2017-05-13] MEDS ORDERED: ALPRAZolam 0.25 MG TAB PO SCH (06:00)
[2017-05-13 06:20] LABS: Anisocytosis Moderate; CHCM 33.4; HCT 24.5 % (34.0-46.0); HDW 3.61; MCH 31.2 pg (25.0-35.0); MCHC 32.2 g/dL (31.0-37.0); Macrocytosis Slight; Mean Platelet Volume 7.2; Poikilocytosis Slight; RBC 2.53 m/uL (3.80-5.40); RDW 21.2 % (11.5-15.5); WBC 7.7 k/uL (3.8-10.6)
[2017-05-13 06:27] LABS: HGB 7.9 gm/dL (11.4-16.0); MCV 96.8 fL (80.0-100.0)
[2017-05-13] MEDS: PANTOPRAZOLE 40 MG TABLET PO SCH (06:29)
[2017-05-13] MEDS: INSULIN LISPRO (humaLOG) 300 UNIT/3 ML VIAL SQ SCH ×4 (06:29→21:29)
[2017-05-13 06:47] LABS: Anion Gap 10 mmol/L; Blood Urea Nitrogen 25 mg/dL (7-17); Calcium 9.9 mg/dL (8.4-10.2); Carbon Dioxide 21 mmol/L (22-30); Chloride 111 mmol/L (98-107); Glucose 143 mg/dL (74-99); Non-African American GFR(MDRD) >60 (>60 ml/min/1.73 sqM); Potassium 3.5 mmol/L (3.5-5.1); Sodium 142 mmol/L (137-145)
[2017-05-13] MEDS ORDERED: LORazepam 2 MG/ML SYRINGE IV STA (08:02)
[2017-05-13] MEDS: DULoxetine HCL 20 MG CAPSULE.DR PO SCH (08:12)
[2017-05-13] MEDS: LISINOPRIL 10 MG TAB PO SCH ×2 (08:12→17:44)
[2017-05-13] MEDS: PROPRANOLOL 20 MG TAB PO SCH ×2 (08:12→17:44)
[2017-05-13] MEDS: SODIUM FERRIC GLUCONAT-SUCROSE 125 MG in SODIUM CHLORIDE 0.9% 100 ML IVPB SCH (09:00)
--- NOTE | 2017-05-13 09:51 | P.CONS ---
History of Present Illness - Reason for Consult Consult date: 05/13/17 GI bleed Requesting physician: Omar Guy - History of Present Illness 76-year-old female history of anemia advised by her PCP to go to the emergency room secondary to outpatient hemoglobin of 5. Consultation requested for anemia. History obtained from medical records and nursing staff patient has history of dementia unable to provide details. No reports of gross hematemesis hematochezia melena. Received a blood transfusion in the spring. Home medications include Protonix 40 mg daily, Feosol 325 mg daily. No excessive usage of aspirin or NSAIDs. Admission hemoglobin 6.9 received 1 unit of blood presently 7.9. MCV 101. Platelet 372. Reticulocyte count 9.6. INR 1.0. BUN 41 creatinine 1.1. Stool occult positive. Review of previous CBCs over the last 4-6 months average hemoglobin between 8- 10. EGD for evaluation of anemia in July 2016 within normal limits. 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 Last colonoscopy around 2012. Review of Systems Obtained from medical records nursing staff Constitutional: Denies fever, chills, sweats, weight gain, or loss. Dementia. HEENT: Negative for migraines, blurred vision or loss, earaches, drainage, tinnitus, oral mucosal lesions, dysphagia, or odynophagia. CARDIAC: Hypertension. Negative for chest pain, arrhythmias, or palpitation. RESPIRATORY: Negative for shortness of breath, hemoptysis, cough, or sputum production. GI: See HPI for pertinent findings. : Negative for hematuria, urgency, frequency, polyuria, or dysuria. GYNc: Denies possibility of . Negative vaginal discharge. MUSCULOSKELETAL: Negative for muscle aches, swelling, arthritis, and arthralgias. NEUROLOGIC: Negative for stroke or TIA. ENDOCRINE: Diabetes. Negative for thyroid problems. SKIN: Negative for rash or itching. PSYCHIATRIC: Anxiety. Depression. ROS unobtainable: due to mental status All systems: negative (See HPI) Past Medical History Past Medical History: Diabetes Mellitus, GERD/Reflux, Hypertension, Renal Disease Additional Past Medical History / Comment(s): vertigo, recent left proximal humerus fx, UTI;S, HX FALLS, ANEMIA, RENAL INSUFICIENCY/FAILURE, HOME OXYGEN 2.5 liters as needed. PER PTS WAS TOLD SHE HAS DEMENTIA History of Any Multi-Drug Resistant Organisms: None Reported Past Surgical History: Cholecystectomy, Hysterectomy Additional Past Surgical History / Comment(s): dental surgery-JAW SX BONE TAKEN FROM HIP TO USE., KNEE SURGERY, cataracts, 07-20-16 total rt knee. HIP SURGERY Past Anesthesia/Blood Transfusion Reactions: Motion Sickness Past Psychological History: Anxiety, Depression, Panic Disorder Additional Psychological History / Comment(s): LIVES AT [facility] Smoking Status: Former smoker Past Alcohol Use History: None Reported Additional Past Alcohol Use History / Comment(s): STARTED SMOKING AT AGE 16, SMOKED 1 PPD X 50 YEARS Past Drug Use History: None Reported - Past Family History Father History Unknown: Yes Additional Family Medical History / Comment(s): Father had a heart valve replacement surgery at approx. age 75. Mother Family Medical History: CVA/TIA Medications and Allergies Home Medications Medication Instructions Recorded Confirmed Type Cholecalciferol (Vitamin D3) 5,000 unit PO BID@0800,1700 06/01/14 05/12/17 History [Vitamin D3] Pantoprazole Sodium [Protonix] 40 mg PO DAILY@0600 06/22/14 05/12/17 History Atorvastatin [Lipitor] 10 mg PO DAILY@0800 09/07/14 05/12/17 History DULoxetine HCL 40 mg PO DAILY@0800 07/08/16 05/12/17 History Meclizine [Antivert] 25 mg PO TID PRN 12/14/16 05/12/17 History Turmeric Root Extract [Turmeric] 500 mg PO DAILY@1700 12/18/16 05/12/17 History Vit C/E/Zn/Coppr/Lutein/Zeaxan 1 cap PO BID@0800,1700 12/18/16 05/12/17 History [Preservision Areds 2 Softgel] ALPRAZolam [Xanax] 0.25 mg PO BID PRN 05/12/17 05/12/17 History ALPRAZolam [Xanax] 0.25 mg PO BID@0600,1400 05/12/17 05/12/17 History ALPRAZolam [Xanax] 1 mg PO HS@2100 05/12/17 05/12/17 History Acetaminophen Tab [Tylenol] 1,000 mg PO TID@0000,1000,1700 05/12/17 05/12/17 History Bisacodyl [Dulcolax] 10 mg RECTAL DAILY PRN 05/12/17 05/12/17 History Ensure Clear 240 ml PO BID@0800,1700 05/12/17 05/12/17 History Ferrous Sulfate [Feosol] 325 mg PO DAILY@1700 05/12/17 05/12/17 History Furosemide [Lasix] 20 mg PO BID@0600,1400 05/12/17 05/12/17 History INSULIN LISPRO (humaLOG) [humaLOG See Protocol SQ 05/12/17 05/12/17 History (formulary)] ACHS@07,11,1730,2130 Lisinopril [Zestril] 10 mg PO BID@0800,1700 05/12/17 05/12/17 History Magnesium Hydroxide [Milk of 2,400 mg PO DAILY PRN 05/12/17 05/12/17 History Magnesia] Methylphenidate HCl [Ritalin] 5 mg PO BID@0800,1500 05/12/17 05/12/17 History Na Phos,M-B/Na Phos,Di-Ba [Fleet 133 ml RECTAL DAILY PRN 05/12/17 05/12/17 History Adult] Potassium Chloride ER [K-Dur 10] 10 meq PO DAILY@1700 05/12/17 05/12/17 History Propranolol [Inderal] 20 mg PO BID@0800,1700 05/12/17 05/12/17 History Sennosides-Docusate Sodium 2 tab PO HS@2100 05/12/17 05/12/17 History [Senokot-S] amLODIPine [Norvasc] 10 mg PO DAILY@0800 05/12/17 05/12/17 History metFORMIN HCL [Glucophage] 500 mg PO BID@0800,1700 05/12/17 05/12/17 History Allergies Allergy/AdvReac Type Severity Reaction Status Date / Time latex Allergy Rash/Hives Verified 05/12/17 14:00 hydrocodone bitartrate AdvReac Nausea & Verified 05/12/17 14:00 [From Vicodin] Vomiting ibuprofen [From Motrin] AdvReac Nausea & Verified 05/12/17 14:00 Vomiting morphine AdvReac Nausea & Verified 05/12/17 14:00 Vomiting Physical Exam Vitals: Vital Signs Temp Pulse Pulse Resp BP BP BP 05/13/17 04:00 98.7 F 99 16 101/54 05/13/17 00:00 98.8 F 92 16 141/49 05/12/17 20:00 97.2 F L 88 16 103/44 05/12/17 19:12 97.6 F 90 18 108/45 05/12/17 16:36 97.5 F L 78 16 123/49 05/12/17 16:06 98.7 F 83 18 111/55 05/12/17 15:56 98.0 F 82 18 118/60 05/12/17 15:50 98.0 F 80 18 118/60 05/12/17 15:00 77 18 127/57 05/12/17 13:57 98.0 F 98 22 115/52 Pulse Ox 05/13/17 04:00 96 05/13/17 00:00 95 05/12/17 20:00 96 05/12/17 19:12 05/12/17 16:36 100 05/12/17 16:06 05/12/17 15:56 96 05/12/17 15:50 100 05/12/17 15:00 100 05/12/17 13:57 99 Intake and Output 05/12/17 05/13/17 05/13/17 22:59 06:59 14:59 Intake Total 535 600 Output Total 1300 800 Balance -765 -200 Intake: IV 225 600 Sodium Chloride 0.9% 1, 225 600 000 ml @ 75 mls/hr IV . [id number] ONE Rx#:[id number] Blood Product 310 Rc As-1 Unit 310 [id number] Output: Urine 1300 800 Uretheral (Sanford) 1300 Other: Voiding Method Indwelling Catheter Indwelling Catheter Weight 45 kg 44.5 kg General appearance: The patient is alert, in no acute distress. HET: Head is normocephalic and atraumatic. Pupils are equal and reactive. Oropharynx is clear without lesions. Neck: Supple without lymphadenopathy. Trachea midline. Heart: S1 S2. Regular rate and rhythm. Lungs: No crackles or wheezes are heard. Abdomen: Soft, nontender, nondistended with bowel sounds. No peritoneal signs. No palpable organomegaly or masses. Extremities: Normal skin color and turgor. No cyanosis, rash, ulceration, clubbing, or edema. Radial and pedal pulses are 2/4 bilaterally. Sanford with clear yellow urine Neurological: No focal deficits. Strength and sensation are grossly intact. Rectal: Retained formed stool in rectal vault without blood. No palpable masses. Results CBC & Chem 7: 05/13/17 05:51 05/13/17 05:51 Labs: Abnormal Lab Results - Last 24 Hours (Table) 05/12/17 05/12/17 05/12/17 Range/Units 13:50 14:01 14:01 RBC (3.80-5.40) m/uL Hgb (11.4-16.0) gm/dL Hct (34.0-46.0) % MCV (80.0-100.0) fL RDW (11.5-15.5) % Retic Count (0.5-2.0) % APTT (22.0-30.0) sec Chloride (98-107) mmol/L Carbon Dioxide (22-30) mmol/L BUN (7-17) mg/dL Creatinine (0.52-1.04) mg/dL Glucose (74-99) mg/dL POC Glucose (mg/dL) (75-99) mg/dL Calcium (8.4-10.2) mg/dL Iron (37-170) ug/dL % Saturation (20-50) % Troponin I 0.100 H* (0.000-0.034) ng/mL Stool Occult Blood Positive H (Negative) U Benzodiazepines Scrn (NotDetected) Crossmatch See Detail 05/12/17 05/12/17 05/12/17 Range/Units 14:01 14:01 14:01 RBC 2.11 L (3.80-5.40) m/uL Hgb 6.9 L* (11.4-16.0) gm/dL Hct 21.5 L (34.0-46.0) % MCV 101.7 H (80.0-100.0) fL RDW 19.9 H (11.5-15.5) % Retic Count (0.5-2.0) % APTT 20.8 L (22.0-30.0) sec Chloride (98-107) mmol/L Carbon Dioxide 21 L (22-30) mmol/L BUN 41 H (7-17) mg/dL Creatinine 1.10 H (0.52-1.04) mg/dL Glucose 181 H (74-99) mg/dL POC Glucose (mg/dL) (75-99) mg/dL Calcium 11.3 H (8.4-10.2) mg/dL Iron (37-170) ug/dL % Saturation (20-50) % Troponin I (0.000-0.034) ng/mL Stool Occult Blood (Negative) U Benzodiazepines Scrn (NotDetected) Crossmatch 05/12/17 05/12/17 05/12/17 Range/Units 14:01 14:30 15:24 RBC (3.80-5.40) m/uL Hgb (11.4-16.0) gm/dL Hct (34.0-46.0) % MCV (80.0-100.0) fL RDW (11.5-15.5) % Retic Count (0.5-2.0) % APTT (22.0-30.0) sec Chloride (98-107) mmol/L Carbon Dioxide (22-30) mmol/L BUN (7-17) mg/dL Creatinine (0.52-1.04) mg/dL Glucose (74-99) mg/dL POC Glucose (mg/dL) 177 H (75-99) mg/dL Calcium (8.4-10.2) mg/dL Iron 18 L (37-170) ug/dL % Saturation 5.0 L (20-50) % Troponin I (0.000-0.034) ng/mL Stool Occult Blood (Negative) U Benzodiazepines Scrn Detected H (NotDetected) Crossmatch 05/12/17 05/12/17 05/12/17 Range/Units 15:29 15:29 16:59 RBC 1.90 L (3.80-5.40) m/uL Hgb 6.2 L* (11.4-16.0) gm/dL Hct 19.3 L* (34.0-46.0) % MCV 101.9 H (80.0-100.0) fL RDW 20.0 H (11.5-15.5) % Retic Count 9.6 H (0.5-2.0) % APTT (22.0-30.0) sec Chloride (98-107) mmol/L Carbon Dioxide (22-30) mmol/L BUN (7-17) mg/dL Creatinine (0.52-1.04) mg/dL Glucose (74-99) mg/dL POC Glucose (mg/dL) 108 H (75-99) mg/dL Calcium (8.4-10.2) mg/dL Iron (37-170) ug/dL % Saturation (20-50) % Troponin I (0.000-0.034) ng/mL Stool Occult Blood (Negative) U Benzodiazepines Scrn (NotDetected) Crossmatch 05/12/17 05/13/17 05/13/17 Range/Units 20:46 05:51 05:51 RBC 2.53 L (3.80-5.40) m/uL Hgb 7.9 L D (11.4-16.0) gm/dL Hct 24.5 L (34.0-46.0) % MCV (80.0-100.0) fL RDW 21.2 H (11.5-15.5) % Retic Count (0.5-2.0) % APTT (22.0-30.0) sec Chloride 111 H (98-107) mmol/L Carbon Dioxide 21 L (22-30) mmol/L BUN 25 H (7-17) mg/dL Creatinine (0.52-1.04) mg/dL Glucose 143 H (74-99) mg/dL POC Glucose (mg/dL) 129 H (75-99) mg/dL Calcium (8.4-10.2) mg/dL Iron (37-170) ug/dL % Saturation (20-50) % Troponin I (0.000-0.034) ng/mL Stool Occult Blood (Negative) U Benzodiazepines Scrn (NotDetected) Crossmatch 05/13/17 Range/Units 05:53 RBC (3.80-5.40) m/uL Hgb (11.4-16.0) gm/dL Hct (34.0-46.0) % MCV (80.0-100.0) fL RDW (11.5-15.5) % Retic Count (0.5-2.0) % APTT (22.0-30.0) sec Chloride (98-107) mmol/L Carbon Dioxide (22-30) mmol/L BUN (7-17) mg/dL Creatinine (0.52-1.04) mg/dL Glucose (74-99) mg/dL POC Glucose (mg/dL) 161 H (75-99) mg/dL Calcium (8.4-10.2) mg/dL Iron (37-170) ug/dL % Saturation (20-50) % Troponin I (0.000-0.034) ng/mL Stool Occult Blood (Negative) U Benzodiazepines Scrn (NotDetected) Crossmatch Assessment and Plan (1) GI bleed Status: Acute (2) Acute blood loss anemia Status: Acute Plan: 1. Iron infusion ordered. CBC monitoring. 2. Hold oral iron. Soapsuds enema for retained stool. 3. Protonix 40 mg daily. 4. EGD evaluation. The plating foreman has discussed the risks, benefits and alternative therapies for the above-mentioned procedure and for both sedation/analgesia as well as necessary blood product administration, if indicated, as they pertain to this patient. The patient has indicated understanding and acceptance of the risks and procedures discussed. Thank you for this kind referral and the opportunity to participate in the care of your patient. This consultation was discussed with Dr. Ashford. The impression and plan of care have been directed as dictated.
[2017-05-13 10:28] VITALS: BMI 17.9
--- NOTE | 2017-05-13 12:04 | HP ---
CHIEF COMPLAINT: Weakness. HISTORY OF PRESENT ILLNESS: This is a 76-year-old patient who is resident at [facility]. She was reported to be fairly weak today. Even at the dining table she was sleeping. The patient in view of this had stat labs done, which revealed the hemoglobin was 5.7. In view of this the patient was transferred from nursing facility to the hospital. Patient has been a resident of the nursing facility for the past about 3 months now following a left hip ORIF. She had a fracture of the left hip back on December 14, 2016. She underwent surgery and subsequent to that she has been in the nursing facility with gradual decline both physically and mentally. Patient has had a previous episode of anemia at which time she was quite anemic and required EGD. The patient had an EGD ( ) sliding hiatal hernia with no other remarkable changes. This was back on July 2016. Subsequent to that the patient had been on iron. She has also been on Protonix. 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 No reported melanotic stools; however, on todays examination the patient has dark colored stool. The patient is on iron, but stool is guaiac positive. This indicating patient has had some upper GI bleeding. Patient is not on any nonsteroidals. PAST MEDICAL HISTORY: Significant for chronic obstructive pulmonary disease. Patient has chronic hypoxia requiring oxygen continuous. Patient has history of diabetes mellitus which is adequately controlled. History of mild aortic stenosis with no symptoms, history of previous GI bleeding as mentioned above. No history of TB, hepatitis, rheumatic fever. No history of any myocardial infarctions or CVA. History of chronic anxiety, depression for which she does see the psychiatrist. The patient has been exhibiting some cognitive impairment. She has had a previous episode of acute renal failure. PAST SURGICAL HISTORY: Significant for cholecystectomy, hysterectomy, bone graft to the jaw from pelvic area, right knee meniscus surgery back in 2004, previous right total knee arthroplasty and recent left hip ORIF. The patient is a nonsmoker at present. No alcohol. ALLERGIES: Sensitive to Keflex and paxil. FAMILY MEDICAL HISTORY: Father had with history of chronic obstructive pulmonary disease, chronic anxiety and severe aortic stenosis. Mother had history of hypertension, diabetes mellitus, and dementia. MEDICATIONS: 1. Glucophage 500 mg b.i.d. 2. Norvasc 10 mg daily. 3. PreserVision 2 soft gels daily. 4. Tumeric daily. 5. Senokot S daily. 6. Inderal 20 mg b.i.d. 7. Potassium chloride 10 mEq daily. 8. Protonix 40 mg daily. 9. Fleets enema p.r.n. 10. Ritalin 5 mg b.i.d. 11. Antivert 25 mg p.o. b.i.d. p.r.n. 12. Magnesium hydroxide p.r.n. 13. Zestril 10 mg b.i.d. 14. DuoNeb updraft q.i.d. 15. Lasix 20 mg b.i.d. 16. Ferrous sulfate 325 mg daily. 17. Cymbalta 40 mg daily. 18. Lipitor 10 mg daily. 19. Xanax 1 mg at bedtime, 0.25 mg b.i.d. 20. Iron 0.25 mg b.i.d. p.r.n. SOCIAL HISTORY: Patient is ; however, at present she is living at the nursing facility. Her spouse visits her every day. REVIEW OF SYSTEMS: The patient is lethargic, sleeping but arousable. Recognizes who I am, otherwise not able to give much detail about surroundings. NEUROLOGIC: Denies any headaches, dizziness. PSYCHIATRIC: History of chronic anxiety, depression. CARDIAC: Denies chest pain or palpitations. RESPIRATORY: Denies shortness of breath. Does have oxygen on. Has mild chronic cough. GASTROINTESTINAL: No reported nausea, vomiting. Appetite poor. No abdominal pain. No diarrhea. No reported history of melena, however, stool on rectal examination is quite black but does not appear melanotic. GENITOURINARY: No symptoms but does have urinary retention today when she came in, about 600 mL of urine. A Sanford catheter was placed. The patient has clear urine. EXTREMITIES: No pain. She still has some restricted range of motion of the left hip, left knee and right knee. NEUROLOGIC: Lethargy, but arousable. Moves all four extremities without difficulty with decreased range of motion in the lower extremities. LABORATORY ASSESSMENT: CBC which showed hemoglobin of 5.7, repeat was 6.9 and third one was 6.2. MCV 101. Platelet count is 372, white count is 8.2. Retic count is elevated at 9.6. INR 1.0. electrolytes normal. BUN 41, creatinine 1.1. Glucose 181, calcium 11.3. Iron 18, TIBC 362, troponin 0.10. Urine is unremarkable. ASSESSMENT: 1. Anemia secondary to acute GI blood loss. 2. Metabolic encephalopathy. 3. Chronic respiratory failure secondary to hypoxia. 4. Chronic obstructive pulmonary disease. 5. Diabetes mellitus. 6. Hypertension. 7. Degenerative arthritis. PLAN: The patient at present is hemodynamically stable. The patient is going to be transfused one unit of packed red cells. Patients condition is discussed with spouse who is in agreement for DNR in case of cardiac arrest. Meanwhile continue present aggressive measures. The patient will be referred to GI for further evaluation. As mentioned above she has had previous angiodysplasias in the duodenum with bleeding. Patients condition is discussed with spouse in detail. Prognosis remains poor. Patients prognosis remains guarded. MTDD
[2017-05-13 12:23] LABS: Glucose,Whole Blood 159 mg/dL (75-99)
[2017-05-13] MEDS ORDERED: LORazepam 2 MG/ML SYRINGE ONE (14:02)
[2017-05-13 17:13] LABS: Glucose,Whole Blood 134 mg/dL (75-99)
[2017-05-13] MEDS: LORazepam 2 MG/ML SYRINGE IV PRN ×2 (17:25→21:22)
[2017-05-13] MEDS: SENNOSIDES-DOCUSATE SODIUM 1 EACH TAB PO SCH (19:47)
[2017-05-13] MEDS: ALPRAZolam 0.5 MG TAB PO SCH (19:47)
[2017-05-13 20:13] LABS: Glucose,Whole Blood 138 mg/dL (75-99)
[2017-05-14] MEDS: ACETAMINOPHEN TAB 500 MG TAB PO PRN ×2 (03:09→09:30)
[2017-05-14] MEDS: ALPRAZolam 0.25 MG TAB PO PRN ×2 (03:09→09:07)
[2017-05-14] MEDS: PANTOPRAZOLE 40 MG TABLET PO SCH (06:47)
[2017-05-14] MEDS: INSULIN LISPRO (humaLOG) 300 UNIT/3 ML VIAL SQ SCH ×4 (06:50→22:02)
[2017-05-14] MEDS: SODIUM CHLORIDE 0.9% 1,000 ML IV SCH (06:53)
[2017-05-14 07:00] LABS: Glucose,Whole Blood 121 mg/dL (75-99)
[2017-05-14 07:42] LABS: Anisocytosis Moderate; Basophils # (A) 0.1 k/uL (0-0.2); Basophils % (A) 1 %; CH 32.3; CHCM 33.3; Eosinophils # (A) 0.3 k/uL (0-0.7); Eosinophils % (A) 3 %; HCT 27.1 % (34.0-46.0); HDW 3.82; HGB 8.8 gm/dL (11.4-16.0); Hypochromasia Slight; Luc # (Auto) 0.32; Luc % (Auto) 3; Lymphocytes # (A) 1.4 k/uL (1.0-4.8); Lymphocytes % (A) 15 %; MCH 31.9 pg (25.0-35.0); MCHC 32.4 g/dL (31.0-37.0); MCV 98.3 fL (80.0-100.0); Macrocytosis Moderate; Mean Platelet Volume 7.3; Monocytes # (A) 0.8 k/uL (0-1.0); Monocytes % (A) 8 %; Neutrophils # (A) 6.6 k/uL (1.3-7.7); Neutrophils % (A) 70 %; Poikilocytosis Slight; RBC 2.76 m/uL (3.80-5.40); RDW 21.3 % (11.5-15.5); WBC 9.5 k/uL (3.8-10.6); WBC (Perox) 9.45
[2017-05-14] MEDS: LISINOPRIL 10 MG TAB PO SCH ×2 (08:57→17:25)
[2017-05-14] MEDS: DULoxetine HCL 20 MG CAPSULE.DR PO SCH (08:57)
[2017-05-14] MEDS: PROPRANOLOL 20 MG TAB PO SCH ×2 (08:57→17:25)
[2017-05-14] MEDS: SODIUM FERRIC GLUCONAT-SUCROSE 125 MG in SODIUM CHLORIDE 0.9% 100 ML IVPB SCH (10:35)
[2017-05-14 12:08] LABS: Glucose,Whole Blood 145 mg/dL (75-99)
[2017-05-14] MEDS ORDERED: IV FLUID CONTINUATION 1,000 ML IV ONE (13:56)
[2017-05-14] MEDS ORDERED: PROPOFOL 10 MG/ML 20 ML VIAL IV ONE (13:59)
[2017-05-14] MEDS ORDERED: LIDOCAINE 1% INJ 10MG/ML (20 ML MDV) ONE (13:59)
--- NOTE | 2017-05-14 14:23 | P.PCN ---
Date of Procedure: 05/14/17 Preoperative Diagnosis: Postoperative Diagnosis: Procedure(s) Performed: BRIEF HISTORY: Patient is a 76-year-old, pleasant, white female, was in the hospital with severe symptomatic anemia and hemoglobin of 5. She had prior upper endoscopy in 2014 and was noted to have duodenal active intravenous medications. Her last upper endoscopy was in July 2016 which was normal. Because of a clinical suspicion for upper GI source of bleeding she is scheduled for an upper endoscopy to evaluate further. PROCEDURE PERFORMED: Esophagogastroduodenoscopy with cautery PREOPERATIVE DIAGNOSIS: As symptomatic anemia and prior history of duodenal AVMs. IV sedation per anesthesia. PROCEDURE: After informed consent was obtained, the patient was brought into the endoscopy unit. IV sedation was administered by Anesthesia under continuous monitoring. Initially the Olympus GIF-140 video endoscope was inserted into the mouth. Esophagus intubated without any difficulty. It was gradually advanced into the stomach and duodenum and carefully examined. The bulb and the second part of the duodenum appeared normal. There was a 5 mm nonbleeding arterial venous malformation in the second part of the duodenum which was cauterized using a gold probe. The scope at this time was withdrawn to the stomach, adequately insufflated with air, and upon careful examination, mucosa of the antrum appeared normal. In the proximal body of the stomach there were at least 4 nonbleeding arterial venous malformations measuring between 2-3 mm in size all of which were cauterized using a gold probe. The rest of the, body, cardia and the fundus appeared normal. The scope was then withdrawn into the esophagus. The GE junction was located at 39 cm from the incisors. The esophagus appeared normal. There were no erosions or ulcerations seen and the patient tolerated the procedure well. IMPRESSION: 1. 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 2. At least 4 gastric AVMs, nonbleeding measuring 2-3 mm in size all of which were cauterized using a gold probe. RECOMMENDATIONS: The findings of this examination were discussed with the patient as well as her family. She will be started on a soft diet. Repeat CBC in the morning and if stable can be discharged home.. Implants: Indications for Procedure: Operative Findings: Description of Procedure:
--- NOTE | 2017-05-14 16:28 | PN ---
CHIEF COMPLAINT: Re-evaluation. HISTORY OF PRESENT ILLNESS: This is an elderly female admitted to the hospital secondary to upper GI blood loss. The patient was transfused yesterday. Hemoglobin is 7.9. She is more alert today, but still continues to be more confused, trying to get out of bed and constantly saying Help me, help me. The patient cannot pinpoint to what her help needs are. She keeps on saying she needs to get up to urinate. She does have a Sanford catheter. The patient on rectal examination yesterday was noted to have a fairly good amount of fecal load. The patient in view of this will be given enema to see if they will help her comfort. REVIEW OF SYSTEMS: NEUROLOGIC: Denies any headaches, dizziness. CARDIAC: Denies chest pain. RESPIRATORY: No shortness of breath. Does have history of chronic respiratory failure. GASTROINTESTINAL: No nausea, vomiting reported. No report of abdominal pain or diarrhea. GENITOURINARY: No symptoms of hematuria. The patient has IDC. EXTREMITIES: No edema. CONSTITUTIONAL: No fever or chills. PHYSICAL EXAMINATION: An elderly female at present restless, which is not uncommon for her at times. VITAL SIGNS: Temperature 99, pulse 95, respirations 16, blood pressure 128/66, pulse ox 96% on 2-L. HEENT: Normocephalic. NECK: No JVD. CHEST: Clear to auscultation. CARDIAC: Normal S1, S2 with no gallops. Systolic murmur 2/6 left sternal border. ABDOMEN: Soft. Bowel sounds are present. EXTREMITIES: Reveals no edema. NEUROLOGIC: Confused, moves both upper and lower extremities adequately. LABORATORY ASSESSMENT: CBC which revealed a hemoglobin of 7.9, white count 7.7, platelets 242. Electrolytes show potassium of 3.5, BUN 25, creatinine 0.82. Chloride 111. CO2 content 21. Glucose 161. ASSESSMENT: 1. Anemia secondary to acute blood loss. 2. Encephalopathy. 3. History of dementia. 4. Chronic obstructive pulmonary disease with chronic respiratory failure. 5. Diabetes mellitus. PLAN: Continue the present medical regimen, Ativan for agitation. The patient is awaiting an EGD, which apparently is scheduled for tomorrow. Patients prognosis remains guarded. MTDD
[2017-05-14 16:43] VITALS: RESP 18
[2017-05-14 17:16] LABS: Glucose,Whole Blood 127 mg/dL (75-99)
[2017-05-14] MEDS: SENNOSIDES-DOCUSATE SODIUM 1 EACH TAB PO SCH (20:32)
[2017-05-14] MEDS: ALPRAZolam 0.5 MG TAB PO SCH (20:32)
[2017-05-14 21:18] LABS: Glucose,Whole Blood 110 mg/dL (75-99)
[2017-05-15] MEDS: SODIUM CHLORIDE 0.9% 1,000 ML IV SCH (00:07)
[2017-05-15] MEDS: PANTOPRAZOLE 40 MG TABLET PO SCH (06:44)
[2017-05-15 07:45] LABS: Glucose,Whole Blood 123 mg/dL (75-99)
[2017-05-15 07:56] VITALS: BP 135/73; TEMP 99.3
[2017-05-15] MEDS: LISINOPRIL 10 MG TAB PO SCH (08:25)
[2017-05-15] MEDS: DULoxetine HCL 20 MG CAPSULE.DR PO SCH (08:25)
[2017-05-15] MEDS: PROPRANOLOL 20 MG TAB PO SCH (08:25)
[2017-05-15] MEDS: INSULIN LISPRO (humaLOG) 300 UNIT/3 ML VIAL SQ SCH (08:26)
[2017-05-15] MEDS ORDERED: CIPROFLOXACIN HCL 250 MG TAB PO SCH (09:00)
[2017-05-15] MEDS: SODIUM FERRIC GLUCONAT-SUCROSE 125 MG in SODIUM CHLORIDE 0.9% 100 ML IVPB SCH (09:10)
[2017-05-15] MEDS: ACETAMINOPHEN TAB 500 MG TAB PO PRN (09:23)
[2017-05-15 09:40] VITALS: PULSE 110
--- NOTE | 2017-05-15 10:29 | P.DS ---
Providers Date of admission: 05/12/17 15:04 Attending physician: Omar Guy Consults: 05/12/17 15:04 Consult Physician Urgent Consulting Provider: Leandro Ashford Consult Reason/Comments: GI bleed Do you want consulting provider notified?: Yes Primary care physician: Omar Guy [facility] Hospital Course: Hospital course: This 76-year-old female was transferred from nursing facility because of extreme lethargy. The patient stat labs showed a hemoglobin of 5.7. Nursing did not report any evidence of active bleeding. Patient's vital signs were fairly good however the patient was extremely lethargic and sleepy. Patient was transferred to emergency room. Repeat hemoglobin was 6.7 and another repeat showed 6.2. Patient's stool was blackish in color area and patient has been on iron. The stool however was guaiac positive suspect patient to have upper GI bleeding. 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 The patient was transfused 1 unit of packed red cell. Her iron studies reveal she was low in iron despite having been on iron supplement. This is probably because patient's been on treatment with proton pump inhibitors. The patient was having adequate bone marrow response as noted with an elevated reticulocyte count. Patient also had evidence of urinary retention when she came to the emergency room. A Sanford catheter was placed. Urine analysis was unremarkable however culture has come back showing more than 100, 000 colonies of gram-negative. Patient has been started on Cipro pending final ID. Patient had no evidence of any sepsis. She has a history of mild cognitive impairment and history of chronic depression and anxiety disorder. She's been on medical therapy and has been followed by the psychiatrist on the outpatient. Patient presented with some encephalopathy due to the above significant anemia. There was some agitation due to the Sanford catheter and constipation. She was given enemas. Sanford catheter subsequently removed patient voiding adequately. Patient is fairly alert her last hemoglobin is 8.8. She is given iron infusions. She'll be transferred back to nursing facility to continue her present regimen of medications as she was at the nursing facility. She'll take Cipro 250 twice a day for 5 days. Medication be changed if culture results show different sensitivity. During the hospital stay patient's condition was discussed with the spouse. He did agree the patient to be a DO NOT RESUSCITATE. Patient to be monitored for any urinary retention at the nursing facility . [facility] Final diagnosis to include 1. Anemia secondary to acute on chronic blood loss 2. Metabolic encephalopathy 3. Chronic respiratory failure secondary to hypoxia 4. COPD 5. Aortic stenosis/mitral regurgitation 6. Chronic anxiety depressive disorder, moderate 7. Debility 8. Hypertension 9. 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 Urinary retention Plan - Discharge Summary New Discharge Prescriptions: New Ciprofloxacin HCl [Cipro] 250 mg PO BID #10 tab Continue Cholecalciferol (Vitamin D3) [Vitamin D3] 5,000 unit PO BID@0800,1700 Pantoprazole Sodium [Protonix] 40 mg PO DAILY@0600 Atorvastatin [Lipitor] 10 mg PO DAILY@0800 DULoxetine HCL 40 mg PO DAILY@0800 Meclizine [Antivert] 25 mg PO TID PRN PRN Reason: Vertigo Vit C/E/Zn/Coppr/Lutein/Zeaxan [Preservision Areds 2 Softgel] 1 cap PO BID@ 0800,1700 Turmeric Root Extract [Turmeric] 500 mg PO DAILY@1700 Acetaminophen Tab [Tylenol] 500 mg PO Q4HR PRN #0 tab PRN Reason: Fever and/ or Mild Pain Ipratropium-Albuterol Nebulize [Duoneb 0.5 mg-3 mg/3 ml Soln] 3 ml INHALATION RT-Q2H PRN #0 ampul.neb PRN Reason: Shortness Of Breath Or Wheezing Na Phos,M-B/Na Phos,Di-Ba [Fleet Adult] 133 ml RECTAL DAILY PRN PRN Reason: Constipation Bisacodyl [Dulcolax] 10 mg RECTAL DAILY PRN PRN Reason: Constipation INSULIN LISPRO (humaLOG) [humaLOG (formulary)] See Protocol SQ ACHS@, 1730,2130 Lisinopril [Zestril] 10 mg PO BID@0800,1700 Acetaminophen Tab [Tylenol] 1,000 mg PO TID@0000,1000,1700 ALPRAZolam [Xanax] 0.25 mg PO BID@0600,1400 metFORMIN HCL [Glucophage] 500 mg PO BID@0800,1700 Propranolol [Inderal] 20 mg PO BID@0800,1700 Furosemide [Lasix] 20 mg PO BID@0600,1400 Ensure Clear 240 ml PO BID@0800,1700 Sennosides-Docusate Sodium [Senokot-S] 2 tab PO HS@2100 amLODIPine [Norvasc] 10 mg PO DAILY@0800 Potassium Chloride ER [K-Dur 10] 10 meq PO DAILY@1700 Ferrous Sulfate [Iron (65 MG Elemental)] 325 mg PO DAILY@1700 Magnesium Hydroxide [Milk of Magnesia] 2,400 mg PO DAILY PRN PRN Reason: Constipation ALPRAZolam [Xanax] 0.25 mg PO BID PRN #60 PRN Reason: Anxiety ALPRAZolam [Xanax] 1 mg PO HS@2100 #30 Methylphenidate HCl [Ritalin] 5 mg PO BID@0800,1500 #60 Discharge Medication List Cholecalciferol (Vitamin D3) [Vitamin D3] 5,000 unit PO BID@0800,1700 06/01/14 [ History] Pantoprazole Sodium [Protonix] 40 mg PO DAILY@0600 06/22/14 [History] Atorvastatin [Lipitor] 10 mg PO DAILY@0800 09/07/14 [History] DULoxetine HCL 40 mg PO DAILY@0800 07/08/16 [History] Meclizine [Antivert] 25 mg PO TID PRN 12/14/16 [History] Turmeric Root Extract [Turmeric] 500 mg PO DAILY@1700 12/18/16 [History] Vit C/E/Zn/Coppr/Lutein/Zeaxan [Preservision Areds 2 Softgel] 1 cap PO BID@0800, 1700 12/18/16 [History] Acetaminophen Tab [Tylenol] 500 mg PO Q4HR PRN #0 tab 12/23/16 [Rx] Ipratropium-Albuterol Nebulize [Duoneb 0.5 mg-3 mg/3 ml Soln] 3 ml INHALATION RT -Q2H PRN #0 ampul.neb 12/23/16 [Rx] ALPRAZolam [Xanax] 0.25 mg PO BID@0600,1400 05/12/17 [History] Acetaminophen Tab [Tylenol] 1,000 mg PO TID@0000,1000,1700 05/12/17 [History] Bisacodyl [Dulcolax] 10 mg RECTAL DAILY PRN 05/12/17 [History] Ensure Clear 240 ml PO BID@0800,1700 05/12/17 [History] Ferrous Sulfate [Iron (65 MG Elemental)] 325 mg PO DAILY@1700 05/12/17 [History] Furosemide [Lasix] 20 mg PO BID@0600,1400 05/12/17 [History] INSULIN LISPRO (humaLOG) [humaLOG (formulary)] See Protocol SQ ACHS@07,11,1730, 2130 05/12/17 [History] Lisinopril [Zestril] 10 mg PO BID@0800,1700 05/12/17 [History] Magnesium Hydroxide [Milk of Magnesia] 2,400 mg PO DAILY PRN 05/12/17 [History] Na Phos,M-B/Na Phos,Di-Ba [Fleet Adult] 133 ml RECTAL DAILY PRN 05/12/17 [ History] Potassium Chloride ER [K-Dur 10] 10 meq PO DAILY@17005/12/17 [History] Propranolol [Inderal] 20 mg PO BID@0800,1700 05/12/17 [History] Sennosides-Docusate Sodium [Senokot-S] 2 tab PO HS@2100 05/12/17 [History] amLODIPine [Norvasc] 10 mg PO DAILY@0800 05/12/17 [History] metFORMIN HCL [Glucophage] 500 mg PO BID@0800,1700 05/12/17 [History] ALPRAZolam [Xanax] 0.25 mg PO BID PRN #60 05/15/17 [Rx] ALPRAZolam [Xanax] 1 mg PO HS@2100 #30 05/15/17 [Rx] Ciprofloxacin HCl [Cipro] 250 mg PO BID #10 tab 05/15/17 [Rx] Methylphenidate HCl [Ritalin] 5 mg PO BID@0800,1500 #60 05/15/17 [Rx] Follow up Appointment(s)/Referral(s): Omar Guy MD [Primary Care Provider] - 1-2 days Discharge Disposition: TRANSFER TO SNF/ECF
--- NOTE | 2017-05-15 10:30 | PN ---
DATE OF SERVICE: 05/14/17 CHIEF COMPLAINT: Reevaluation. HISTORY OF PRESENT ILLNESS: This is an elderly 76 -year-old who was admitted to the hospital with generalized weakness. She is noted to be anemic. The patient transfused 1 unit of packed red cells. She has iron deficiency. She is somewhat better today. Though intermittently the nurses report the patient gets agitated. She has some degree of dementia. REVIEW OF SYSTEMS: NEURO: Denies any headaches or dizziness. PSYCH: Chronic anxiety. CARDIAC: Denies chest pain. RESPIRATORY: Denies shortness of breath. GI: No nausea, vomiting reported. : No symptoms. Has IDC. EXTREMITIES: Denies pain or edema. CONSTITUTIONAL: No fever or chills. PHYSICAL EXAM: 76 -year-old female appears chronically ill in no distress. Vital signs reveals temperature 98.5. Pulse 85, respirations 17. Blood pressure 116/47. HEENT: Normocephalic. Neck supple. No JVD. Chest clear to auscultation. Mild generalized decreased air flow. Cardiac distant S1, S2 with no gallops. Abdomen soft. Bowel sounds active. Extremities reveal no edema. No tenderness. Neurological: Arousable in no distress. Moves both upper and lower extremities adequately. LABORATORY DATA: CBC this morning reveals hemoglobin of 8.8. White count 9.5. Platelets 316. Glucose random was 145 at lunchtime. 125 at breakfast. The patient did have an EGD. She did have AVMs which are not active bleeding but they were cauterized. These are probably the source of intermittent bleeding. The patients condition remains ( ). IMPRESSION: 1. Anemia, secondary to acute blood loss. 2. AV malformation of the duodenum. 3. Chronic obstructive pulmonary disease. 4. Chronic respiratory failure. 5. Mild dementia. 6. Hypertension. 7. Degenerative joint disease. PLAN: Continue present medical regimen. The patients condition will be discussed with the spouse. Prognosis remains guarded. If hemoglobin remains stable tomorrow, she will be transferred back to nursing facility. [facility]
--- NOTE | 2017-05-15 20:34 | PN ---
DATE OF SERVICE: 05/15/17 The patient is a 76 -year-old pleasant lady admitted to the hospital with severe symptomatic anemia and hemoglobin of 6.2 requiring two units of blood transfusion. She did not have evidence of active GI bleed. She underwent an upper endoscopy yesterday that showed nonbleeding arteriovenous malformations in the stomach and in the duodenum that were cauterized. The patient is doing well this morning. She denies any complaints. On a soft diet, tolerating well. On physical examination, appears comfortable in no apparent distress. Vital signs are stable. Blood pressure 135/73. Pulse rate 122. Temperature 99.3. HEENT: Unremarkable. Conjunctivae pink. Sclerae anicteric. Oral cavity no lesions. Neck no JVD or lymph node enlargement. Chest clear to auscultation. Heart regular rate and rhythm. Abdomen is soft. Bowel sounds positive. No organomegaly. Extremities no pedal edema. Skin no rashes. Neurological: Alert and oriented times three. No focal deficits. Labs: WBC 9.5, Hemoglobin 8.8. Platelets are 316. IMPRESSION: Severe symptomatic anemia with hemoglobin 6.9 requiring blood transfusion. Currently hemoglobin is 8.8. She did not have any evidence of active gastrointestinal bleed but there was some questionable dark colored stools. She underwent upper endoscopy yesterday that showed gastric and duodenal nonbleeding arteriovenous malformations that were cauterized. Presently, clinically and hemodynamically stable. RECOMMENDATIONS: 1. Advance diet as tolerated. 2. Continue proton pump inhibitors. 3. The patient can be discharged home today. Thank you for this consultation. [facility]
== END 2017-05-15 12:35 | DRG 377 ==
LOC: EC 13:37 → 6SEL 15:04 → 4MS4W 05-14 11:07
PROVIDERS: ADMIT Internal Medicine; ATTEND Internal Medicine
PROC: 0W3P8ZZ Control Bleeding in Gastrointestinal Tract, Via Natural or Artificial Opening Endoscopic (ICD-10-PCS; principal; 2017-05-12)
PROC: 30233N1 Transfusion of Nonautologous Red Blood Cells into Peripheral Vein, Percutaneous Approach (ICD-10-PCS; 2017-05-12)
DX: K31.811 Angiodysplasia of stomach and duodenum with bleeding (principal); G93.41 Metabolic encephalopathy; J96.11 Chronic respiratory failure with hypoxia; D62 Acute posthemorrhagic anemia; F03.90 Unspecified dementia, unspecified severity, without behavioral disturbance, psychotic disturbance, mood disturbance, and anxiety; J44.9 Chronic obstructive pulmonary disease, unspecified; E11.9 Type 2 diabetes mellitus without complications; F32.9 Major depressive disorder, single episode, unspecified; F41.0 Panic disorder [episodic paroxysmal anxiety]; I08.0 Rheumatic disorders of both mitral and aortic valves; I10 Essential (primary) hypertension; K21.9 Gastro-esophageal reflux disease without esophagitis; K44.9 Diaphragmatic hernia without obstruction or gangrene; K59.00 Constipation, unspecified; M19.90 Unspecified osteoarthritis, unspecified site; R33.9 Retention of urine, unspecified; F41.9 Anxiety disorder, unspecified; Z66 Do not resuscitate; Z96.651 Presence of right artificial knee joint; Z87.891 Personal history of nicotine dependence; Z99.81 Dependence on supplemental oxygen; Z79.899 Other long term (current) drug therapy; Z88.5 Allergy status to narcotic agent; Z88.6 Allergy status to analgesic agent; Z91.040 Latex allergy status; Z82.49 Family history of ischemic heart disease and other diseases of the circulatory system
CPT/HCPCS: 36415; 43255; 71020; 80048; 80053; 80306; 81003; 82272; 82550; 82553; 83540; 83550; 84439; 84443; 84484; 85025; 85027; 85045; 85610; 85730; 86850; 86900; 86901; 86920; 87077; 87086; 87186; 93005; 96361; 96374; 99285

== ENCOUNTER 2017-05-25 00:55 | Inpatient (IN) | payer MEDICARE, BC, OTHER ==
[2017-05-25 01:04] LABS: Glucose,Whole Blood 97 mg/dL (75-99)
[2017-05-25] MEDS ORDERED: SODIUM CHLORIDE 0.9% 500 ML IV ONE (01:04)
[2017-05-25] MEDS ORDERED: SODIUM CHLORIDE 0.9% 1,000 ML IV ONE ×2 (01:04→06:33)
[2017-05-25 01:27] LABS: Anisocytosis Slight; Basophils # (A) 0.1 k/uL (0-0.2); Basophils % (A) 0 %; CH 33.3; CHCM 33.9; Eosinophils # (A) 0.4 k/uL (0-0.7); Eosinophils % (A) 2 %; HCT 25.7 % (34.0-46.0); HDW 3.38; HGB 8.5 gm/dL (11.4-16.0); Luc # (Auto) 0.31; Luc % (Auto) 2; Lymphocytes # (A) 1.9 k/uL (1.0-4.8); Lymphocytes % (A) 11 %; MCH 32.6 pg (25.0-35.0); MCHC 32.8 g/dL (31.0-37.0); MCV 99.3 fL (80.0-100.0); Macrocytosis Moderate; Mean Platelet Volume 7.9; Monocytes % (A) 5 %; Neutrophils % (A) 80 %; RBC 2.59 m/uL (3.80-5.40); RDW 18.9 % (11.5-15.5); WBC 17.5 k/uL (3.8-10.6); WBC (Perox) 17.67
[2017-05-25 01:32] LABS: VBG PH 7.36 (7.31-7.41)
[2017-05-25 01:34] LABS: Appearance,Urine Cloudy (Clear); Bacteria,Urine Moderate /hpf; Bilirubin,Urine Negative (Negative); Glucose,Urine (UA) Negative (Negative); Ketones,Urine Negative (Negative); Leukocyte Esterase,Urine Large (Negative); Nitrite,Urine Negative (Negative); PH, Urine 5.5 (5.0-8.0); Particle Count 39760; Protein,Urine 1+ (Negative); RBC,Urine 2 /hpf (0-5); Specific Gravity,Urine 1.013 (1.001-1.035); UA Billing (MACRO vs. MICRO) MICRO; Urobilinogen,Urine <2.0 mg/dL (<2.0); WBC,Urine 91 /hpf (0-5)
[2017-05-25 01:43] LABS: Calcium 10.3 mg/dL (8.4-10.2); INR 1.1 (<1.2); Partial Thromboplastin Time 25.6 sec (22.0-30.0); Potassium 4.3 mmol/L (3.5-5.1); Prothrombin Time 11.4 sec (9.0-12.0); Total Bilirubin 0.4 mg/dL (0.2-1.3); Total Protein 5.5 g/dL (6.3-8.2)
[2017-05-25 02:04] LABS: Creatine Kinase MB 1.7 ng/mL (0.0-2.4); Troponin I 0.021 ng/mL (0.000-0.034)
--- NOTE | 2017-05-25 02:18 | CT ---
EXAM: CT Head Without Intravenous Contrast CLINICAL HISTORY: Reason: altered mental status TECHNIQUE: Axial computed tomography images of the head/brain without intravenous contrast. CTDI is 57.40 mGy and DLP is 1081.60 mGy-cm. This CT exam was performed using one or more of the following dose reduction techniques: automated exposure control, adjustment of the mA and/or kV according to patient size, and/or use of iterative reconstruction technique. COMPARISON: CT head 12/14/2016 FINDINGS: Brain: Cerebral atrophy. Chronic white matter ischemic changes. No evidence of acute cortical cerebral infarction or intracranial hemorrhage. Ventricles: Ventricles are of normal configuration without mass effect or midline shift. Bones/joints: No evidence of skull fracture. Sinuses: Imaged paranasal and mastoid sinuses are clear. Mastoid air cells: See above. IMPRESSION: Cerebral atrophy and chronic white matter ischemic changes. No evidence of acute intracranial abnormality.
--- NOTE | 2017-05-25 02:25 | XR ---
EXAM: XR Abdomen Complete, 2 or More Views CLINICAL HISTORY: Reason: Pain TECHNIQUE: Frontal view of the abdomen/pelvis with upright view of the abdomen. COMPARISON: No relevant prior studies available. FINDINGS: Intraperitoneal space: No evidence of bowel obstruction or pneumoperitoneum. Gastrointestinal tract: Moderate colonic fecal debris. . Organs: Surgical clips right upper quadrant suggesting previous cholecystectomy. Small 2-3 millimeters calcifications projecting along medial mid zone left kidney raising possibility of small renal calculi. Bones/joints: Generalized osseous to mineralization. Chronic appearing internal reduced left femoral neck fracture. Bony defect along left lateral iliac bone which may be postsurgical. Vasculature: Aortoiliac vascular calcifications. IMPRESSION: Possible small left renal calculi. No evidence of bowel obstruction or pneumoperitoneum.
--- NOTE | 2017-05-25 02:33 | XR ---
EXAM: XR Chest, 2 Views CLINICAL HISTORY: Reason: altered mental status TECHNIQUE: Frontal and lateral views of the chest. COMPARISON: Chest radiographs 05/12/2017 and 08/12/2016 heart size is within normal limits. FINDINGS: Lungs: Lungs are hyperaerated. Development of left lower lobe infiltrate. Small approximately 1 cm right midlung pulmonary nodule not clearly evident on prior comparison chest radiographs. Pleural space: No evidence of pleural effusion or pneumothorax. Heart: Heart size is within normal limits Mediastinum: Mediastinal structures are unremarkable. Bones/joints: Osseous demineralization. Mild Thoracic spondylosis. Chronic appearing left humeral neck fracture. IMPRESSION: Pulmonary hyperaeration suggesting COPD. Development of left lower lobe infiltrate raising possibility of pneumonia. Small right midlung nodular density which is of indeterminate etiology. Follow-up CT chest would be useful for further evaluation.
[2017-05-25] MEDS ORDERED: IV VANCOMYCIN PER PHARMACY 1 EACH MISC MISCELLANE PRN (02:39)
[2017-05-25] MEDS ORDERED: CEFEPIME 2 GM in SODIUM CHLORIDE 0.9% 50 ML IVPB STA (02:39)
[2017-05-25] MEDS ORDERED: VANCOMYCIN 1,000 MG in SODIUM CHLORIDE 0.9% 250 ML IVPB STA (02:44)
[2017-05-25] MEDS ORDERED: NALOXONE 0.4 MG/ML 1 ML VIAL IV PRN (02:48)
--- NOTE | 2017-05-25 02:48 | ED ---
General Adult HPI - General Chief complaint: Altered Mental Status Stated complaint: altered mental status Time Seen by Provider: 05/25/17 01:04 Source: patient, family, EMS, RN notes reviewed, old records reviewed Mode of arrival: EMS - History of Present Illness Initial comments: 76-year-old female presents from jail with hypotension and altered mental status. Patient was noted to be less responsive this evening. She does have baseline level of confusion. According to the patient's this has been worsening over the past several weeks. Patient's blood pressure was noted to be the 70s systolic. According to jail staff patient's white blood cell count has been increasing and hemoglobin has been dropping. History of recent admission for GI bleed at this institution. He has past medical history of dementia, anemia, diabetes, and COPD. Medical records indicate that on May 24 she had a Whipple's, 21.8, and hemoglobin of 8.9. Patient is able to answer simple questions she is aware she is reported hospital, denies any pain complaints but is moaning, her states this is normal for her. - Related Data Home Medications Medication Instructions Recorded Confirmed Cholecalciferol (Vitamin D3) 5,000 unit PO BID@0800,1700 06/01/14 05/12/17 [Vitamin D3] Pantoprazole Sodium [Protonix] 40 mg PO DAILY@0600 06/22/14 05/12/17 Atorvastatin [Lipitor] 10 mg PO DAILY@0800 09/07/14 05/12/17 DULoxetine HCL 40 mg PO DAILY@0800 07/08/16 05/12/17 Meclizine [Antivert] 25 mg PO TID PRN 12/14/16 05/12/17 Turmeric Root Extract [Turmeric] 500 mg PO DAILY@1700 12/18/16 05/12/17 Vit C/E/Zn/Coppr/Lutein/Zeaxan 1 cap PO BID@0800,1700 12/18/16 05/12/17 [Preservision Areds 2 Softgel] ALPRAZolam [Xanax] 0.25 mg PO BID@0600,1400 05/12/17 05/12/17 Acetaminophen Tab [Tylenol] 1,000 mg PO TID@0000,1000,1700 05/12/17 05/12/17 Bisacodyl [Dulcolax] 10 mg RECTAL DAILY PRN 05/12/17 05/12/17 Ensure Clear 240 ml PO BID@0800,1700 05/12/17 05/12/17 Ferrous Sulfate [Iron (65 MG 325 mg PO DAILY@1700 05/12/17 05/12/17 Elemental)] Furosemide [Lasix] 20 mg PO BID@0600,1400 05/12/17 05/12/17 INSULIN LISPRO (humaLOG) [humaLOG See Protocol SQ 05/12/17 05/12/17 (formulary)] ACHS@07,11,1730,2130 Lisinopril [Zestril] 10 mg PO BID@0800,1700 05/12/17 05/12/17 Magnesium Hydroxide [Milk of 2,400 mg PO DAILY PRN 05/12/17 05/12/17 Magnesia] Na Phos,M-B/Na Phos,Di-Ba [Fleet 133 ml RECTAL DAILY PRN 05/12/17 05/12/17 Adult] Potassium Chloride ER [K-Dur 10] 10 meq PO DAILY@1700 05/12/17 05/12/17 Propranolol [Inderal] 20 mg PO BID@0800,1700 05/12/17 05/12/17 Sennosides-Docusate Sodium 2 tab PO HS@2100 05/12/17 05/12/17 [Senokot-S] amLODIPine [Norvasc] 10 mg PO DAILY@0800 05/12/17 05/12/17 metFORMIN HCL [Glucophage] 500 mg PO BID@0800,1700 05/12/17 05/12/17 Previous Rx's Medication Instructions Recorded Acetaminophen Tab [Tylenol] 500 mg PO Q4HR PRN #0 tab 12/23/16 Ipratropium-Albuterol Nebulize 3 ml INHALATION RT-Q2H PRN #0 12/23/16 [Duoneb 0.5 mg-3 mg/3 ml Soln] ampul.neb ALPRAZolam [Xanax] 0.25 mg PO BID PRN #60 05/15/17 ALPRAZolam [Xanax] 1 mg PO HS@2100 #30 05/15/17 Ciprofloxacin HCl [Cipro] 250 mg PO BID #10 tab 05/15/17 Methylphenidate HCl [Ritalin] 5 mg PO BID@0800,1500 #60 05/15/17 Allergies Allergy/AdvReac Type Severity Reaction Status Date / Time latex Allergy Rash/Hives Verified 05/12/17 14:00 hydrocodone bitartrate AdvReac Nausea & Verified 05/12/17 14:00 [From Vicodin] Vomiting ibuprofen [From Motrin] AdvReac Nausea & Verified 05/12/17 14:00 Vomiting morphine AdvReac Nausea & Verified 05/12/17 14:00 Vomiting Review of Systems ROS Statement: Those systems with pertinent positive or pertinent negative responses have been documented in the HPI. ROS Other: All systems not noted in ROS Statement are negative. Past Medical History Past Medical History: Diabetes Mellitus, GERD/Reflux, Hypertension, Renal Disease Additional Past Medical History / Comment(s): vertigo, recent left proximal humerus fx, UTI;S, HX FALLS, ANEMIA, RENAL INSUFICIENCY/FAILURE, HOME OXYGEN 2.5 liters as needed. PER PTS WAS TOLD SHE HAS DEMENTIA History of Any Multi-Drug Resistant Organisms: None Reported Past Surgical History: Cholecystectomy, Hysterectomy Additional Past Surgical History / Comment(s): dental surgery-JAW SX BONE TAKEN FROM HIP TO USE., KNEE SURGERY, cataracts, 07-20-16 total rt knee. HIP SURGERY Past Anesthesia/Blood Transfusion Reactions: Motion Sickness Past Psychological History: Anxiety, Depression, Panic Disorder Smoking Status: Former smoker Past Alcohol Use History: None Reported Past Drug Use History: None Reported - Past Family History Father History Unknown: Yes Additional Family Medical History / Comment(s): Father had a heart valve replacement surgery at approx. age 75. Mother Family Medical History: CVA/TIA General Exam General appearance: in no apparent distress, lethargic Head exam: Present: atraumatic, normocephalic Eye exam: Present: normal appearance, PERRL ENT exam: Present: mucous membranes dry Neck exam: Present: normal inspection. Absent: meningismus Respiratory exam: Present: normal lung sounds bilaterally. Absent: respiratory distress, wheezes Cardiovascular Exam: Present: regular rate, normal rhythm GI/Abdominal exam: Present: soft. Absent: distended, tenderness Rectal exam: Present: heme (+) stool External exam: Present: normal external exam Extremities exam: Present: normal inspection, normal capillary refill, pedal edema (Trace) Neurological exam: Absent: motor sensory deficit Psychiatric exam: Present: normal affect, normal mood Skin exam: Present: warm, dry, intact. Absent: cyanosis, diaphoretic Course Vital Signs 05/25/17 05/25/17 00:57 01:06 Temperature 97.5 F L Pulse Rate 66 Respiratory 14 Rate Blood Pressure 111/54 O2 Sat by Pulse 94 L Oximetry - Reevaluation(s) Reevaluation #1: 05/25/17 02:44 Patient's blood pressure was stable the emergency department EKG Findings - EKG Comments: EKG Findings:: EKG shows sinus rhythm with PAC, ventricular rate of 68, NJ interval 162, QRS duration 92, QTC is prolonged at 497 no signs of ischemia Medical Decision Making - Medical Decision Making 76-year-old female presenting from jail with hypertension. Altered mental status. She was noted to have elevated white blood cell count and anemia on recent laboratory studies. Following the emergency department laboratory studies are redrawn, whippets count is 17.5, hemoglobin is 8.5 from recent lab draw 3.9. Stool is brown, not melanotic, heme positive. There is mild lactic acidosis of 2.4. Albumin is 2.7. Creatinine is 1.3 from baseline 1.0. Urine does show moderate bacteria with 91 wbc's. Patient had recent urine culture which was positive for E. coli. Susceptible to cephalosporins. CT of the brain was obtained and was negative for acute process. Chest x-ray shows small left lower lobe pneumonia. Abdominal x-ray shows no obstruction or free air. Culture and blood cultures are pending. Patient is given IV hydration, and started on IV antibiotics. She'll also be given Protonix for concern for continued GI bleed although hemoglobin does appear stable at this time. Diagnosis: Healthcare associated pneumonia, urinary tract infection, hypotension , lactic acidosis, acute kidney injury, anemia - Lab Data Result diagrams: 05/25/17 01:07 05/25/17 01:07 Lab Results 05/25/17 05/25/17 05/25/17 Range/Units 01:02 01:07 01:07 WBC 17.5 H (3.8-10.6) k/uL RBC 2.59 L (3.80-5.40) m/uL Hgb 8.5 L (11.4-16.0) gm/dL Hct 25.7 L (34.0-46.0) % MCV 99.3 (80.0-100.0) fL MCH 32.6 (25.0-35.0) pg MCHC 32.8 (31.0-37.0) g/dL RDW 18.9 H (11.5-15.5) % Plt Count 246 (150-450) k/uL Neutrophils % 80 % Lymphocytes % 11 % Monocytes % 5 % Eosinophils % 2 % Basophils % 0 % Neutrophils # 14.0 H (1.3-7.7) k/uL Lymphocytes # 1.9 (1.0-4.8) k/uL Monocytes # 1.0 (0-1.0) k/uL Eosinophils # 0.4 (0-0.7) k/uL Basophils # 0.1 (0-0.2) k/uL Anisocytosis Slight Macrocytosis Moderate PT (9.0-12.0) sec INR (<1.2) APTT (22.0-30.0) sec VBG pH (7.31-7.41) VBG pCO2 (37-51) mmHg VBG HCO3 (24-28) mmol/L Sodium (137-145) mmol/L Potassium (3.5-5.1) mmol/L Chloride (98-107) mmol/L Carbon Dioxide (22-30) mmol/L Anion Gap mmol/L BUN (7-17) mg/dL Creatinine (0.52-1.04) mg/dL Est GFR (MDRD) Af Amer (>60 ml/min/1.73 sqM) Est GFR (MDRD) Non-Af (>60 ml/min/1.73 sqM) Glucose (74-99) mg/dL POC Glucose (mg/dL) 97 (75-99) mg/dL POC Glu Retort Condenser Attendant ID Sandra Munoz Plasma Lactic Acid Brandon (0.7-2.0) mmol/L Calcium (8.4-10.2) mg/dL Total Bilirubin (0.2-1.3) mg/dL AST (14-36) U/L ALT (9-52) U/L Alkaline Phosphatase (38-126) U/L Total Creatine Kinase 93 (30-135) U/L CK-MB (CK-2) 1.7 (0.0-2.4) ng/mL CK-MB (CK-2) Rel Index 1.8 Troponin I 0.021 (0.000-0.034) ng/mL Total Protein (6.3-8.2) g/dL Albumin (3.5-5.0) g/dL Urine Color Urine Appearance (Clear) Urine pH (5.0-8.0) Ur Specific Milo (1.001-1.035) Urine Protein (Negative) Urine Glucose (UA) (Negative) Urine Ketones (Negative) Urine Blood (Negative) Urine Nitrite (Negative) Urine Bilirubin (Negative) Urine Urobilinogen (<2.0) mg/dL Ur Leukocyte Esterase (Negative) Urine RBC (0-5) /hpf Urine WBC (0-5) /hpf Urine Bacteria (None) /hpf Hyaline Casts (0-2) /lpf Stool Occult Blood (Negative) 05/25/17 05/25/17 05/25/17 Range/Units 01:07 01:07 01:07 WBC (3.8-10.6) k/uL RBC (3.80-5.40) m/uL Hgb (11.4-16.0) gm/dL Hct (34.0-46.0) % MCV (80.0-100.0) fL MCH (25.0-35.0) pg MCHC (31.0-37.0) g/dL RDW (11.5-15.5) % Plt Count (150-450) k/uL Neutrophils % % Lymphocytes % % Monocytes % % Eosinophils % % Basophils % % Neutrophils # (1.3-7.7) k/uL Lymphocytes # (1.0-4.8) k/uL Monocytes # (0-1.0) k/uL Eosinophils # (0-0.7) k/uL Basophils # (0-0.2) k/uL Anisocytosis Macrocytosis PT 11.4 (9.0-12.0) sec INR 1.1 (<1.2) APTT 25.6 (22.0-30.0) sec VBG pH (7.31-7.41) VBG pCO2 (37-51) mmHg VBG HCO3 (24-28) mmol/L Sodium 137 (137-145) mmol/L Potassium 4.3 (3.5-5.1) mmol/L Chloride 107 (98-107) mmol/L Carbon Dioxide 20 L (22-30) mmol/L Anion Gap 10 mmol/L BUN 36 H (7-17) mg/dL Creatinine 1.30 H (0.52-1.04) mg/dL Est GFR (MDRD) Af Amer 48 (>60 ml/min/1.73 sqM) Est GFR (MDRD) Non-Af 40 (>60 ml/min/1.73 sqM) Glucose 85 (74-99) mg/dL POC Glucose (mg/dL) (75-99) mg/dL POC Glu Retort Condenser Attendant ID Plasma Lactic Acid Brandon (0.7-2.0) mmol/L Calcium 10.3 H (8.4-10.2) mg/dL Total Bilirubin 0.4 (0.2-1.3) mg/dL AST 75 H (14-36) U/L ALT 61 H (9-52) U/L Alkaline Phosphatase 121 (38-126) U/L Total Creatine Kinase (30-135) U/L CK-MB (CK-2) (0.0-2.4) ng/mL CK-MB (CK-2) Rel Index Troponin I (0.000-0.034) ng/mL Total Protein 5.5 L (6.3-8.2) g/dL Albumin 2.7 L (3.5-5.0) g/dL Urine Color Urine Appearance (Clear) Urine pH (5.0-8.0) Ur Specific Milo (1.001-1.035) Urine Protein (Negative) Urine Glucose (UA) (Negative) Urine Ketones (Negative) Urine Blood (Negative) Urine Nitrite (Negative) Urine Bilirubin (Negative) Urine Urobilinogen (<2.0) mg/dL Ur Leukocyte Esterase (Negative) Urine RBC (0-5) /hpf Urine WBC (0-5) /hpf Urine Bacteria (None) /hpf Hyaline Casts (0-2) /lpf Stool Occult Blood Positive H (Negative) 05/25/17 05/25/17 05/25/17 Range/Units 01:07 01:07 01:07 WBC (3.8-10.6) k/uL RBC (3.80-5.40) m/uL Hgb (11.4-16.0) gm/dL Hct (34.0-46.0) % MCV (80.0-100.0) fL MCH (25.0-35.0) pg MCHC (31.0-37.0) g/dL RDW (11.5-15.5) % Plt Count (150-450) k/uL Neutrophils % % Lymphocytes % % Monocytes % % Eosinophils % % Basophils % % Neutrophils # (1.3-7.7) k/uL Lymphocytes # (1.0-4.8) k/uL Monocytes # (0-1.0) k/uL Eosinophils # (0-0.7) k/uL Basophils # (0-0.2) k/uL Anisocytosis Macrocytosis PT (9.0-12.0) sec INR (<1.2) APTT (22.0-30.0) sec VBG pH 7.36 (7.31-7.41) VBG pCO2 42 (37-51) mmHg VBG HCO3 23 L (24-28) mmol/L Sodium (137-145) mmol/L Potassium (3.5-5.1) mmol/L Chloride (98-107) mmol/L Carbon Dioxide (22-30) mmol/L Anion Gap mmol/L BUN (7-17) mg/dL Creatinine (0.52-1.04) mg/dL Est GFR (MDRD) Af Amer (>60 ml/min/1.73 sqM) Est GFR (MDRD) Non-Af (>60 ml/min/1.73 sqM) Glucose (74-99) mg/dL POC Glucose (mg/dL) (75-99) mg/dL POC Glu Retort Condenser Attendant ID Plasma Lactic Acid Brandon 2.4 H* (0.7-2.0) mmol/L Calcium (8.4-10.2) mg/dL Total Bilirubin (0.2-1.3) mg/dL AST (14-36) U/L ALT (9-52) U/L Alkaline Phosphatase (38-126) U/L Total Creatine Kinase (30-135) U/L CK-MB (CK-2) (0.0-2.4) ng/mL CK-MB (CK-2) Rel Index Troponin I (0.000-0.034) ng/mL Total Protein (6.3-8.2) g/dL Albumin (3.5-5.0) g/dL Urine Color Yellow Urine Appearance Cloudy H (Clear) Urine pH 5.5 (5.0-8.0) Ur Specific Milo 1.013 (1.001-1.035) Urine Protein 1+ H (Negative) Urine Glucose (UA) Negative (Negative) Urine Ketones Negative (Negative) Urine Blood Negative (Negative) Urine Nitrite Negative (Negative) Urine Bilirubin Negative (Negative) Urine Urobilinogen <2.0 (<2.0) mg/dL Ur Leukocyte Esterase Large H (Negative) Urine RBC 2 (0-5) /hpf Urine WBC 91 H (0-5) /hpf Urine Bacteria Moderate H (None) /hpf Hyaline Casts 6 H (0-2) /lpf Stool Occult Blood (Negative) Critical Care Time Critical Care Time: Yes Total Critical Care Time: 35 Disposition Clinical Impression: Acute kidney injury, UTI (urinary tract infection), Healthcare-associated pneumonia, Lactic acidosis Disposition: ADMITTED IP TO THIS [facility] Condition: Stable Referrals: Omar Guy MD [Primary Care Provider] - 1-2 days Decision to Admit Reason: Admit from EC Decision Date: 05/25/17 Decision Time: 02:48
[2017-05-25] MEDS: ACETAMINOPHEN TAB 325 MG TAB PO PRN ×2 (03:19→12:20)
[2017-05-25] MEDS: SODIUM CHLORIDE 0.9% 1,000 ML IV SCH ×2 (04:21→16:12)
[2017-05-25 05:44] LABS: Glucose,Whole Blood 97 mg/dL (75-99)
[2017-05-25] MEDS ORDERED: ACETAMINOPHEN TAB 500 MG TAB PO PRN (07:49)
[2017-05-25] MEDS ORDERED: IPRATROPIUM-ALBUTEROL 3 ML NEB INHALATION PRN (07:49)
[2017-05-25] MEDS ORDERED: ENSURE CLEAR PO SCH (08:00)
[2017-05-25] MEDS ORDERED: PANTOPRAZOLE 40 MG/10 ML VIAL IVP SCH (09:00)
[2017-05-25] MEDS: CEFEPIME 2 GM in SODIUM CHLORIDE 0.9% 50 ML IVPB SCH ×2 (10:10→16:11)
[2017-05-25 11:36] LABS: Glucose,Whole Blood 127 mg/dL (75-99)
[2017-05-25] MEDS: DULoxetine HCL 20 MG CAPSULE.DR PO SCH (12:16)
[2017-05-25] MEDS: METHYLPHENIDATE HCL 5 MG TAB PO SCH ×2 (12:16→16:12)
[2017-05-25] MEDS: INSULIN LISPRO (humaLOG) 300 UNIT/3 ML VIAL SQ SCH ×3 (12:16→21:17)
[2017-05-25] MEDS: PROPRANOLOL 20 MG TAB PO SCH ×2 (12:16→16:13)
[2017-05-25] MEDS: SODIUM FERRIC GLUCONAT-SUCROSE 125 MG in SODIUM CHLORIDE 0.9% 100 ML IVPB SCH (13:45)
[2017-05-25] MEDS ORDERED: ALPRAZolam 0.25 MG TAB PO SCH (14:00)
[2017-05-25 16:51] LABS: Glucose,Whole Blood 134 mg/dL (75-99)
[2017-05-25] MEDS: LORazepam 2 MG/ML SYRINGE IV PRN ×2 (17:34→23:52)
[2017-05-25] MEDS: SENNOSIDES-DOCUSATE SODIUM 1 EACH TAB PO SCH ×2 (20:27→20:32)
[2017-05-25] MEDS: ALPRAZolam 0.5 MG TAB PO SCH (20:27)
[2017-05-25 20:48] LABS: Glucose,Whole Blood 96 mg/dL (75-99)
[2017-05-26 05:58] LABS: Glucose,Whole Blood 86 mg/dL (75-99)
[2017-05-26 06:12] LABS: Anisocytosis Slight; Basophils # (A) 0.1 k/uL (0-0.2); Basophils % (A) 1 %; CHCM 30.4; Eosinophils # (A) 0.3 k/uL (0-0.7); Eosinophils % (A) 2 %; HCT 25.2 % (34.0-46.0); HDW 3.29; HGB 7.9 gm/dL (11.4-16.0); Hypochromasia Marked; Luc # (Auto) 0.32; Luc % (Auto) 3; Lymphocytes % (A) 8 %; MCH 33.4 pg (25.0-35.0); MCHC 31.3 g/dL (31.0-37.0); Macrocytosis Marked; Mean Platelet Volume 7.9; Monocytes # (A) 0.7 k/uL (0-1.0); Monocytes % (A) 6 %; Neutrophils % (A) 81 %; RBC 2.36 m/uL (3.80-5.40); RDW 18.5 % (11.5-15.5); WBC 12.4 k/uL (3.8-10.6); WBC (Perox) 12.47
[2017-05-26 06:24] LABS: ALT 44 U/L (9-52); AST 35 U/L (14-36); Alkaline Phosphatase 113 U/L (38-126); Anion Gap 7 mmol/L; Blood Urea Nitrogen 31 mg/dL (7-17); Calcium 8.9 mg/dL (8.4-10.2); Carbon Dioxide 17 mmol/L (22-30); Chloride 115 mmol/L (98-107); Glucose 83 mg/dL (74-99); Non-African American GFR(MDRD) >60 (>60 ml/min/1.73 sqM); Potassium 4.2 mmol/L (3.5-5.1); Sodium 139 mmol/L (137-145); Total Bilirubin 0.5 mg/dL (0.2-1.3)
[2017-05-26 06:25] LABS: MCV 106.7 fL (80.0-100.0)
[2017-05-26] MEDS: INSULIN LISPRO (humaLOG) 300 UNIT/3 ML VIAL SQ SCH ×4 (06:25→21:23)
[2017-05-26] MEDS: SODIUM CHLORIDE 0.9% 1,000 ML IV SCH ×2 (06:25→17:30)
[2017-05-26] MEDS: PANTOPRAZOLE 40 MG TABLET PO SCH (06:26)
[2017-05-26 08:04] LABS: Manual Review Performed
[2017-05-26 08:05] LABS: Crenated RBC Present; Polychromasia Present
--- NOTE | 2017-05-26 08:40 | HP ---
HISTORY AND PHYSICAL DATE OF ADMISSION: 05/25/17 CHIEF COMPLAINT: Hypotension and altered mental status. HISTORY OF PRESENT ILLNESS: This is a 76-year-old female who was at the nursing facility this evening. The patient this morning had routine blood tests done for followup of anemia. The patient was noted to have an elevated white count. She was doing fairly well with that. No fever, chills, or any change in her mental status. However, during the night, the patient became somewhat hypotensive, more confused. In view of this, she was sent to the emergency room. The patient is noted to be having blood pressure in the 70s when she was seen in the nursing facility. However in the emergency room, patient was reported to have blood pressure with some flares in the 90s. She is subsequently also noted to have positive urinary tract infection. The patient is admitted to the hospital in view of this. She had elevated lactic acid, suggestive of sepsis. The patient also had some obtundation. CT scan of the brain does not reveal any acute changes. She was recently hospitalized on May 12 with anemia secondary to GI bleeding. The patient is noted to have guaiac-positive stool still. Mildly anemic. The patient at last admission had E coli in the urine for which she was treated with Cipro. The patient is confused at times, lethargic, emotional, but does recognize myself and her . The patient has not been noted to have any fever or chills. PAST MEDICAL HISTORY: Is primarily significant for COPD with chronic respiratory failure secondary to hypoxia using oxygen. History of hypertension and has a history of diabetes mellitus and mild aortic stenosis. The patient also has a history of recurrent GI blood loss. 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 The patient has had no history of TB, hepatitis, rheumatic fever. No history of any myocardial infarction or CVA. History of chronic anxiety, depression, and mild cognitive impairment. PAST SURGICAL HISTORY: Significant for cholecystectomy, hysterectomy, bone graft to the jaw from a pelvic bone. Right knee meniscus surgery back in 2004 and a previous right total knee arthroplasty. The patient had a recent left hip ORIF. PERSONAL HISTORY: Patient is a nonsmoker at present. Used to smoke in the past. Alcohol, none. ALLERGIES: SENSITIVE TO KEFLEX AND PAXIL. FAMILY MEDICAL HISTORY: Father at the age of 80 with a history of COPD and aortic stenosis. Mother had a history of hypertension, diabetes mellitus, and dementia. PRESENT MEDICATIONS: Include the followin. Metformin 500 mg b.i.d. 2. Norvasc 10 mg daily. 3. PreserVision 1 b.i.d. 4. Tumeric root extract daily. 5. Senna 2 daily. 6. Inderal 20 mg b.i.d. 7. Potassium chloride 10 daily. 8. Protonix 40 mg 1 mg daily. 9. Ritalin 5 mg b.i.d. 10.Antivert 25 mg b.i.d. 11.Lisinopril 10 mg b.i.d. 12.DuoNeb inhalation q.i.d. and p.r.n. 13.Lasix 20 mg daily. 14.Ferrous sulfate 325 mg daily. 15.Celexa 40 mg daily. 16.Atorvastatin 10 mg daily. 17.Xanax 1 mg at q.h.s. 0.25 mg b.i.d. p.r.n. 0.25 mg b.i.d. at 7 and 10 pm o'clock. SOCIAL HISTORY: Patient is , at present in the nursing facility. She has not been able to go home following left hip ORIF due to recurrent medical ailments. REVIEW OF SYSTEMS: Neuro: Denies any headaches or dizziness. Psych: Cooperative with intermittent agitation and just wanting to talk to her mother. GI: No nausea, vomiting, abdominal pain, diarrhea. no symptoms of dysuria, hematuria. Does have some incontinence. Extremities: Chronic pain in knee and hip. CONSTITUTIONAL: No fever, chills. Hematologic: Anemia with recent GI blood loss. Extremities some chronic pain and decreased range of mobility. ENT: Has fair vision and hearing. PHYSICAL EXAMINATION: This is a 76-year-old female at present, cooperative, in no distress. Vital signs reveals temperature was 101.1 at 7 o'clock. Temperature was down to 97 axillary, pulse 95, respirations 20, blood pressure 92/51, pulse ox 96% on 2 L. HEENT: Normocephalic. Neck: No JVD: Pupils are reactive. Nostrils are clear. Oral cavity is dry. Ears reveal no drainage. Neck was no JVD, no carotid bruits, or thyromegaly. Chest examination is clear to auscultation. Cardiac: Normal S1, S2 with no gallop. Systolic murmur 2/6 left sternal border and right 2nd intercostal space. ABDOMEN: Soft. Bowel sounds normal. No organomegaly. No abdominal bruits. There is no CVA tenderness. Extremities reveal no edema. Good pulses upper extremities. Mild decreased pedal pulses. Neurologically: Awake, intermittent confusion. Moves both upper and lower extremities adequately, though has decreased range of motion of the left hip and right knee joint. The plantars equivocal. LABORATORY DATA: Electrolytes are 20, anion gap 10, BUN 36, creatinine 1.0, AST 75, ALT 61, calcium 10.3. CPK is normal. Albumin 2.7, lactic acid 2.4, subsequently went up to 5.1, and blood sugars managed adequately. Lactic acid subsequently down to 2.6 and 1.7. The patient's blood cultures reported positive already, gram-negative bacilli. White count was 17.5, hemoglobin 8.5. Urine had negative nitrite and WBCs and moderate bacteria. ASSESSMENT: 1. Urinary tract infection with sepsis. 2. Gram-negative bacteria. 3. Chronic obstructive pulmonary disease with chronic hypoxemia. 4. Hypertension. 5. Diabetes mellitus. 6. Anemia secondary to recent gastrointestinal blood loss. PLAN: The patient at present is on IV antibiotics and vancomycin and downstairs as well. The patient's chest x-ray suggested possible infiltrate, probable atelectasis as no clinical symptoms of pneumonia. The patient is covered with an antibiotic. We will follow how she does with that. Meanwhile, the patient is on the Maxipime and will be continued. The patient is on 1 g daily and will be continued. The patient's condition discussed with the patient's spouse. The patient's prognosis remains guarded. The patient is NO CPR as per previous designation. MMODL / IJN: [id number] /
[2017-05-26 11:43] LABS: Glucose,Whole Blood 97 mg/dL (75-99)
[2017-05-26] MEDS: PROPRANOLOL 20 MG TAB PO SCH ×2 (12:16→17:29)
[2017-05-26] MEDS: METHYLPHENIDATE HCL 5 MG TAB PO SCH ×2 (12:16→17:29)
[2017-05-26] MEDS: HEPARIN SODIUM,PORCINE 5,000 UNIT/ML 1 ML VIAL SQ SCH ×2 (12:16→17:30)
[2017-05-26] MEDS: DULoxetine HCL 20 MG CAPSULE.DR PO SCH (12:16)
[2017-05-26] MEDS: CEFEPIME 1 GM in SODIUM CHLORIDE 0.9% 50 ML IVPB SCH (12:17)
[2017-05-26] MEDS: ACETAMINOPHEN TAB 325 MG TAB PO PRN ×2 (12:17→17:32)
[2017-05-26 16:40] LABS: Glucose,Whole Blood 101 mg/dL (75-99)
[2017-05-26] MEDS: SODIUM FERRIC GLUCONAT-SUCROSE 125 MG in SODIUM CHLORIDE 0.9% 100 ML IVPB SCH (17:29)
[2017-05-26] MEDS: ALPRAZolam 0.25 MG TAB PO PRN (17:41)
[2017-05-26 21:12] LABS: Glucose,Whole Blood 96 mg/dL (75-99)
[2017-05-26] MEDS: SENNOSIDES-DOCUSATE SODIUM 1 EACH TAB PO SCH ×2 (21:47→21:53)
[2017-05-26] MEDS: ALPRAZolam 0.5 MG TAB PO SCH ×2 (21:49→21:53)
[2017-05-27] MEDS: HEPARIN SODIUM,PORCINE 5,000 UNIT/ML 1 ML VIAL SQ SCH ×3 (00:15→16:30)
[2017-05-27] MEDS: ALPRAZolam 0.25 MG TAB PO PRN ×2 (05:55→17:35)
[2017-05-27] MEDS: PANTOPRAZOLE 40 MG TABLET PO SCH (05:59)
[2017-05-27] MEDS: SODIUM CHLORIDE 0.9% 1,000 ML IV SCH ×2 (06:04→22:52)
[2017-05-27 06:18] LABS: Glucose,Whole Blood 107 mg/dL (75-99)
[2017-05-27] MEDS: INSULIN LISPRO (humaLOG) 300 UNIT/3 ML VIAL SQ SCH ×4 (06:36→22:53)
[2017-05-27 06:41] LABS: Anisocytosis Slight; CH 32.5; CHCM 31.9; HCT 28.9 % (34.0-46.0); HDW 3.46; Hypochromasia Slight; MCH 31.9 pg (25.0-35.0); MCV 102.9 fL (80.0-100.0); Macrocytosis Moderate; Mean Platelet Volume 7.6; Poikilocytosis Slight; RBC 2.81 m/uL (3.80-5.40); RDW 18.3 % (11.5-15.5); WBC 11.8 k/uL (3.8-10.6)
[2017-05-27 06:53] LABS: Anion Gap 12 mmol/L; Blood Urea Nitrogen 18 mg/dL (7-17); Calcium 9.4 mg/dL (8.4-10.2); Carbon Dioxide 17 mmol/L (22-30); Chloride 114 mmol/L (98-107); Glucose 99 mg/dL (74-99); Non-African American GFR(MDRD) >60 (>60 ml/min/1.73 sqM); Sodium 143 mmol/L (137-145)
[2017-05-27] MEDS: PROPRANOLOL 20 MG TAB PO SCH ×2 (08:38→17:35)
[2017-05-27] MEDS: DULoxetine HCL 20 MG CAPSULE.DR PO SCH (08:38)
[2017-05-27] MEDS: CEFEPIME 1 GM in SODIUM CHLORIDE 0.9% 50 ML IVPB SCH (08:43)
[2017-05-27] MEDS: METHYLPHENIDATE HCL 5 MG TAB PO SCH ×2 (08:43→16:10)
--- NOTE | 2017-05-27 11:23 | PN ---
PROGRESS NOTE CHIEF COMPLAINT: Reevaluation. HISTORY OF PRESENT ILLNESS: This is an elderly female, 76 years of age, was admitted to the hospital with urinary tract infection and sepsis. The patient has gram-negative bacilli, ID pending. Patient is somewhat more cooperative this morning though sleepy. She had not slept most of the night with some agitation. REVIEW OF SYSTEMS: NEURO: No headaches. PSYCH: Intermittent agitation. CARDIAC: No chest pain. RESPIRATORY: Denies shortness of breath. GI: No reported nausea, vomiting. Appetite fair. No diarrhea. : Incontinent. EXTREMITIES: No pain. CONSTITUTIONAL: No fever past 24 hours. PHYSICAL EXAMINATION: A 76-year-old female who appears chronically in no distress. Vital signs reveals temperature 98.4 axillary, pulse 77, respiration 18, blood pressure 131/60, pulse ox of 94% on 2 L. HEENT: Normocephalic. NECK: No JVD. CHEST: Clear to auscultation. CARDIAC: Normal S1, S2 with no gallop. Systolic murmur 2/6 left sternal border and right second intercostal space with no change. ABDOMEN: Soft, bowel sounds present. Extremities reveal no edema. Neurologically is lethargic, does move both upper and lower extremities spontaneously. LABORATORY ASSESSMENT: Reveals a white count of 12.4, hemoglobin 7.9 and MCV 106.7, platelet count 223. Sodium 139, potassium 4.2, chloride 115, CO2 content 17, BUN 31, creatinine 0.90. Blood sugars are adequate. Albumin 2.3. ASSESSMENT: 1. Urinary tract infection with sepsis. 2. Dehydration, improved. 3. Hypotension, resolved. 4. Diabetes mellitus, controlled. 5. Anemia secondary to chronic blood loss, stable. 6. Chronic anxiety. PLAN: The patient is stabilized. Continue present medical regimen. Patient's condition remains guarded. Prognosis remains guarded. MMODL / IJN: [id number] /
[2017-05-27 12:05] LABS: Glucose,Whole Blood 176 mg/dL (75-99)
[2017-05-27] MEDS: LORazepam 2 MG/ML SYRINGE IV PRN (14:40)
[2017-05-27] MEDS: SODIUM FERRIC GLUCONAT-SUCROSE 125 MG in SODIUM CHLORIDE 0.9% 100 ML IVPB SCH (16:28)
[2017-05-27 17:05] LABS: Glucose,Whole Blood 99 mg/dL (75-99)
[2017-05-27] MEDS: SENNOSIDES-DOCUSATE SODIUM 1 EACH TAB PO SCH (20:11)
[2017-05-27] MEDS: ALPRAZolam 0.5 MG TAB PO SCH (20:15)
[2017-05-27 20:24] LABS: Glucose,Whole Blood 168 mg/dL (75-99)
[2017-05-28] MEDS: HEPARIN SODIUM,PORCINE 5,000 UNIT/ML 1 ML VIAL SQ SCH ×4 (00:38→22:46)
[2017-05-28] MEDS: LORazepam 2 MG/ML SYRINGE IV PRN (01:18)
[2017-05-28] MEDS: PANTOPRAZOLE 40 MG TABLET PO SCH (06:54)
[2017-05-28 07:00] LABS: Glucose,Whole Blood 100 mg/dL (75-99)
[2017-05-28] MEDS: INSULIN LISPRO (humaLOG) 300 UNIT/3 ML VIAL SQ SCH ×4 (08:33→21:35)
[2017-05-28] MEDS: CEFEPIME 1 GM in SODIUM CHLORIDE 0.9% 50 ML IVPB SCH (08:34)
[2017-05-28 08:55] LABS: Anisocytosis Slight; CH 31.4; CHCM 31.6; HCT 26.5 % (34.0-46.0); HDW 3.45; HGB 8.5 gm/dL (11.4-16.0); Hypochromasia Moderate; MCH 32.4 pg (25.0-35.0); MCHC 32.2 g/dL (31.0-37.0); MCV 100.5 fL (80.0-100.0); Macrocytosis Moderate; Poikilocytosis Slight; RBC 2.64 m/uL (3.80-5.40); RDW 18.2 % (11.5-15.5); WBC 6.8 k/uL (3.8-10.6)
[2017-05-28 09:05] LABS: Anion Gap 8 mmol/L; Blood Urea Nitrogen 11 mg/dL (7-17); Calcium 8.7 mg/dL (8.4-10.2); Carbon Dioxide 19 mmol/L (22-30); Chloride 115 mmol/L (98-107); Glucose 99 mg/dL (74-99); Non-African American GFR(MDRD) >60 (>60 ml/min/1.73 sqM); Potassium 3.7 mmol/L (3.5-5.1); Sodium 142 mmol/L (137-145)
--- NOTE | 2017-05-28 09:39 | PN ---
PROGRESS NOTE CHIEF COMPLAINT: Reevaluation. HISTORY OF PRESENT ILLNESS: This 76-year-old was admitted to the hospital with urinary tract infection with sepsis. The patient also had associated toxic encephalopathy, which is improved. The patient does have a history of chronic anxiety and mild cognitive impairment. She also has history of COPD with chronic respiratory failure. She is much more alert, though continues verbal agitation and anxiety. She does respond to IV Ativan. She has a chronic history of this anxiety disorder for which she has been on Xanax for many years. Today, as mentioned about more alert. REVIEW OF SYSTEMS: NEURO: Denies any headaches or dizziness. PSYCH: Anxious. CARDIAC: No chest pain. RESPIRATORY: No shortness of breath. Denies cough. GI: No reported nausea, vomiting. Appetite poor. : No symptoms of dysuria or hematuria. Does have incontinence. EXTREMITIES: Has some chronic hip and knee pain. CONSTITUTIONAL: No fever, chills. PHYSICAL EXAMINATION: A 76-year-old female who presents in no distress. Vital signs reveal temperature 98.3, pulse 85, respirations 16, blood pressure 144/66, pulse ox 94% on 2 L. HEENT: Normocephalic. NECK: No JVD. CHEST: Clear to auscultation. CARDIAC: Normal S1, S2 with no gallops, systolic murmur 2/6 left sternal border. ABDOMEN: Soft, bowel sounds present. EXTREMITIES: No edema. NEUROLOGIC: Alert, oriented to place, person. Moves both upper and lower extremities. LABORATORY ASSESSMENT: CBC which shows white count was 11.8, hemoglobin was 9.0, platelets 297. Sodium 143, potassium 4.0, chloride 114, CO2 content 17, BUN 18, creatinine 0.7. ASSESSMENT: 1. Urinary tract infection with sepsis, secondary to Escherichia coli. 2. Toxic encephalopathy. 3. Chronic respiratory failure secondary to hypoxia. 4. Chronic obstructive pulmonary disease. .. 5. Diabetes mellitus. 6. Chronic renal failure. PLAN: Continue present medical regimen. Patient's condition discussed with the patient's spouse. Prognosis is guarded. Potential discharge back to nursing facility in 48 hours. MMODL / IJN: [id number] /
[2017-05-28 11:24] LABS: Glucose,Whole Blood 107 mg/dL (75-99)
[2017-05-28] MEDS: METHYLPHENIDATE HCL 5 MG TAB PO SCH ×3 (12:06→17:36)
[2017-05-28] MEDS: PROPRANOLOL 20 MG TAB PO SCH ×2 (12:06→17:32)
[2017-05-28] MEDS: DULoxetine HCL 20 MG CAPSULE.DR PO SCH (12:06)
[2017-05-28 13:08] VITALS: BMI 18.7
[2017-05-28] MEDS: SODIUM FERRIC GLUCONAT-SUCROSE 125 MG in SODIUM CHLORIDE 0.9% 100 ML IVPB SCH (14:43)
[2017-05-28 17:15] LABS: Glucose,Whole Blood 128 mg/dL (75-99)
[2017-05-28] MEDS: ACETAMINOPHEN TAB 325 MG TAB PO PRN (18:33)
[2017-05-28] MEDS: ALPRAZolam 0.25 MG TAB PO PRN (18:38)
[2017-05-28] MEDS ORDERED: BISACODYL 10 MG SUPP RECTAL PRN (18:46)
[2017-05-28 20:38] LABS: Glucose,Whole Blood 113 mg/dL (75-99)
[2017-05-28] MEDS: SENNOSIDES-DOCUSATE SODIUM 1 EACH TAB PO SCH (21:34)
[2017-05-28] MEDS: ALPRAZolam 0.5 MG TAB PO SCH (21:45)
[2017-05-29] MEDS: PANTOPRAZOLE 40 MG TABLET PO SCH (05:57)
[2017-05-29] MEDS: ALPRAZolam 0.25 MG TAB PO PRN (05:58)
[2017-05-29] MEDS: INSULIN LISPRO (humaLOG) 300 UNIT/3 ML VIAL SQ SCH (07:15)
[2017-05-29 07:39] LABS: Anisocytosis Slight; CH 31.3; CHCM 30.8; HCT 25.5 % (34.0-46.0); HDW 3.49; Hypochromasia Marked; MCH 32.3 pg (25.0-35.0); MCHC 31.5 g/dL (31.0-37.0); MCV 102.5 fL (80.0-100.0); Macrocytosis Moderate; Mean Platelet Volume 7.1; Poikilocytosis Slight; RBC 2.49 m/uL (3.80-5.40); RDW 18.6 % (11.5-15.5); WBC 8.1 k/uL (3.8-10.6)
[2017-05-29 07:49] LABS: Glucose,Whole Blood 89 mg/dL (75-99)
[2017-05-29 08:00] LABS: Anion Gap 9 mmol/L; Blood Urea Nitrogen 10 mg/dL (7-17); Calcium 8.4 mg/dL (8.4-10.2); Carbon Dioxide 16 mmol/L (22-30); Chloride 115 mmol/L (98-107); Glucose 90 mg/dL (74-99); Non-African American GFR(MDRD) >60 (>60 ml/min/1.73 sqM); Sodium 140 mmol/L (137-145)
[2017-05-29] MEDS ORDERED: ATORVASTATIN 10 MG TAB PO SCH (08:00)
[2017-05-29] MEDS ORDERED: CHOLECALCIFEROL 1,000 UNIT TAB PO SCH (08:00)
[2017-05-29 08:05] LABS: Potassium 3.5 mmol/L (3.5-5.1)
[2017-05-29 08:12] VITALS: BP 149/66; PULSE 71; RESP 20; TEMP 98.6
--- NOTE | 2017-05-29 08:59 | P.DS ---
Providers Date of admission: 05/25/17 02:48 Attending physician: Omar Guy Primary care physician: Omar Guy [facility] Course: This 76-year-old female was admitted to the facility after being brought to the emergency room from [facility]. Patient exhibited altered mental status and lethargy and hypotension. Upon evaluation patient was felt to be septic. She was started on IV fluids and given IV antibiotics and subsequently admitted to the hospital. Patient's general condition gradually improved blood cultures revealed patient had E. coli sepsis the patient also had a urinary tract infection with E. coli. The patient general condition over the hospital stay has improved back to baseline. Vital signs are stable. Her sugars adequately controlled she does have mild cognitive impairment and at times agitation. The patient is chronically ill. She has underlying COPD with chronic respiratory failure secondary to hypoxia. History of diabetes mellitus, hypertension, debility. The patient also has history of chronic anxiety and on medical therapy. The patient at the time of discharge is stable. Be discharged back to nursing facility continue with them high protein diet. Patient's medications as ordered. She'll take Keflex 500 mg 3 times a day for the next 10 days. Final diagnosis to include 1. Urinary tract infection with sepsis 2. E. coli bacteremia 3. Toxic encephalopathy improved 4. Chronic anxiety disorder 5. Diabetes mellitus controlled 6. Generalized debility 7. Hypertension controlled 8. Dehydration with acute renal failure resolved 9. Delirium resolved 10. Degenerative arthritis. 11. Aortic stenosis Patient Condition at Discharge: Stable Plan - Discharge Summary New Discharge Prescriptions: New Acetaminophen Tab [Tylenol] 650 mg PO Q6HR PRN tab PRN Reason: Mild Pain Or Fever > 100.5 Cephalexin [Keflex] 500 mg PO Q8HR #30 cap Continue Pantoprazole Sodium [Protonix] 40 mg PO DAILY@0600 Atorvastatin [Lipitor] 10 mg PO DAILY@0800 DULoxetine HCL 40 mg PO HS@2100 Meclizine [Antivert] 25 mg PO TID PRN PRN Reason: Vertigo Vit C/E/Zn/Coppr/Lutein/Zeaxan [Preservision Areds 2 Softgel] 1 cap PO BID@ 0800,1700 Turmeric Root Extract [Turmeric] 500 mg PO DAILY@1700 Acetaminophen Tab [Tylenol] 500 mg PO Q4HR PRN #0 tab PRN Reason: Fever and/ or Mild Pain Ipratropium-Albuterol Nebulize [Duoneb 0.5 mg-3 mg/3 ml Soln] 3 ml INHALATION RT-Q2H PRN #0 ampul.neb PRN Reason: Shortness Of Breath Or Wheezing Na Phos,M-B/Na Phos,Di-Ba [Fleet Adult] 133 ml RECTAL DAILY PRN PRN Reason: Constipation Bisacodyl [Dulcolax] 10 mg RECTAL DAILY PRN PRN Reason: Constipation INSULIN LISPRO (humaLOG) [humaLOG (formulary)] See Protocol SQ ACHS@07,11, 1730,2130 Lisinopril [Zestril] 10 mg PO BID@0800,1700 Acetaminophen Tab [Tylenol] 1,000 mg PO TID@0000,1000,1700 ALPRAZolam [Xanax] 0.25 mg PO BID@0800,1700 metFORMIN HCL [Glucophage] 500 mg PO BID@0800,1700 Propranolol [Inderal] 20 mg PO BID@0800,1700 Furosemide [Lasix] 20 mg PO BID@0600,1400 Ensure Clear 240 ml PO BID@0800,1700 Sennosides-Docusate Sodium [Senokot-S] 2 tab PO HS@2100 amLODIPine [Norvasc] 10 mg PO DAILY@0800 Potassium Chloride ER [K-Dur 10] 10 meq PO DAILY@1700 Ferrous Sulfate [Iron (65 MG Elemental)] 325 mg PO DAILY@1700 Magnesium Hydroxide [Milk of Magnesia] 2,400 mg PO DAILY PRN PRN Reason: Constipation ALPRAZolam [Xanax] 0.25 mg PO BID PRN #60 PRN Reason: Anxiety ALPRAZolam [Xanax] 1 mg PO HS@2100 #30 Methylphenidate HCl [Ritalin] 5 mg PO BID@0800,1500 #60 Cholecalciferol [Vitamin D3] 5,000 unit PO BID@0800,1700 Discharge Medication List Pantoprazole Sodium [Protonix] 40 mg PO DAILY@0600 06/22/14 [History] Atorvastatin [Lipitor] 10 mg PO DAILY@0800 09/07/14 [History] DULoxetine HCL 40 mg PO HS@2100 07/08/16 [History] Meclizine [Antivert] 25 mg PO TID PRN 12/14/16 [History] Turmeric Root Extract [Turmeric] 500 mg PO DAILY@169912/18/16 [History] Vit C/E/Zn/Coppr/Lutein/Zeaxan [Preservision Areds 2 Softgel] 1 cap PO BID@0800, 17012/18/16 [History] Acetaminophen Tab [Tylenol] 500 mg PO Q4HR PRN #0 tab 12/23/16 [Rx] Ipratropium-Albuterol Nebulize [Duoneb 0.5 mg-3 mg/3 ml Soln] 3 ml INHALATION RT -Q2H PRN #0 ampul.neb 12/23/16 [Rx] ALPRAZolam [Xanax] 0.25 mg PO BID@0800,169905/12/17 [History] Acetaminophen Tab [Tylenol] 1,000 mg PO TID@0000,1000,169905/12/17 [History] Bisacodyl [Dulcolax] 10 mg RECTAL DAILY PRN 05/12/17 [History] Ensure Clear 240 ml PO BID@0800,169905/12/17 [History] Ferrous Sulfate [Iron (65 MG Elemental)] 325 mg PO DAILY@169905/12/17 [History] Furosemide [Lasix] 20 mg PO BID@0600,1400 05/12/17 [History] INSULIN LISPRO (humaLOG) [humaLOG (formulary)] See Protocol SQ ACHS@07,11,1730, 2130 05/12/17 [History] Lisinopril [Zestril] 10 mg PO BID@0800,17005/12/17 [History] Magnesium Hydroxide [Milk of Magnesia] 2,400 mg PO DAILY PRN 05/12/17 [History] Na Phos,M-B/Na Phos,Di-Ba [Fleet Adult] 133 ml RECTAL DAILY PRN 05/12/17 [ History] Potassium Chloride ER [K-Dur 10] 10 meq PO DAILY@169905/12/17 [History] Propranolol [Inderal] 20 mg PO BID@0800,17005/12/17 [History] Sennosides-Docusate Sodium [Senokot-S] 2 tab PO HS@2100 05/12/17 [History] amLODIPine [Norvasc] 10 mg PO DAILY@0800 05/12/17 [History] metFORMIN HCL [Glucophage] 500 mg PO BID@0800,1700 05/12/17 [History] ALPRAZolam [Xanax] 0.25 mg PO BID PRN #60 05/15/17 [Rx] ALPRAZolam [Xanax] 1 mg PO HS@2100 #30 05/15/17 [Rx] Methylphenidate HCl [Ritalin] 5 mg PO BID@0800,1500 #60 05/15/17 [Rx] Cholecalciferol [Vitamin D3] 5,000 unit PO BID@0800,1700 05/25/17 [History] Acetaminophen Tab [Tylenol] 650 mg PO Q6HR PRN tab 05/29/17 [Rx] Cephalexin [Keflex] 500 mg PO Q8HR #30 cap 05/29/17 [Rx] Follow up Appointment(s)/Referral(s): Omar Guy MD [Primary Care Provider] - 1 Week Patient Instructions/Handouts: Pneumonia (DC) Activity/Diet/Wound Care/Special Instructions: Cardiac, diabetic diet. Discharge Disposition: TRANSFER TO SNF/ECF
[2017-05-29] MEDS: DULoxetine HCL 20 MG CAPSULE.DR PO SCH (09:05)
[2017-05-29] MEDS: PROPRANOLOL 20 MG TAB PO SCH (09:05)
[2017-05-29] MEDS: METHYLPHENIDATE HCL 5 MG TAB PO SCH (09:05)
[2017-05-29] MEDS: HEPARIN SODIUM,PORCINE 5,000 UNIT/ML 1 ML VIAL SQ SCH (09:05)
[2017-05-29] MEDS: CEFEPIME 1 GM in SODIUM CHLORIDE 0.9% 50 ML IVPB SCH (09:06)
--- NOTE | 2017-05-29 12:33 | PN ---
PROGRESS NOTE CHIEF COMPLAINT: Reevaluation. HISTORY OF PRESENT ILLNESS: This is a 76-year-old female was admitted to the hospital with urinary tract infection, sepsis with E coli. She is doing better. She is more alert. REVIEW OF SYSTEMS: Neuro: Denies any headaches, dizziness. Psych: Anxiety. Cardiac: No chest pain, angina, palpitation. Respiratory: No shortness of breath, cough. GI: No nausea, vomiting. Appetite is fair. No diarrhea. : No symptoms of dysuria, hematuria. Has incontinence. Extremities: Some chronic pain. Constitutional: No fever or chills. PHYSICAL EXAMINATION: Pleasant female in no distress. Vital signs reveals temperature 97, pulse 81, respirations 16, blood pressure 142/70, pulse ox 95% on 4 L. HEENT: Normocephalic. NECK: Supple. No JVD. CHEST: Clear to auscultation. Cardiac normal S1, S2. No gallops. Systolic murmur 2/6 left sternal border. Abdomen: Soft. Bowel sounds present. Extremities reveal no edema. Good pulses upper extremities. Mild decreased pedal pulses. Neurological is awake, alert, oriented to place, person with well coordinated movements. LABORATORY DATA: Assessment reveals CBC shows a white count back to normal 6.8, hemoglobin is 8.5, platelets 232. Sodium 142, potassium 3.7, chloride 115, CO2 content 19. Renal function normal. Blood sugar is 99. ASSESSMENT: 1. Urinary tract infection with sepsis with E coli. 2. E. coli bacteremia. 3. Diabetes mellitus. 4. Chronic obstructive pulmonary disease. 5. Chronic respiratory failure secondary to hypoxia. 6. Agitation. 7. Anxiety. 8. Metabolic encephalopathy, improved. PLAN: The patient is stable. Continue present medical regimen. Patient's condition discussed with the patient. Prognosis remains guarded. Potential discharge back to nursing facility tomorrow. MMODL / IJN: [id number] /
[2017-05-29] MEDS ORDERED: FERROUS SULFATE 325 MG TAB PO SCH (17:00)
== END 2017-05-29 10:04 | DRG 871 ==
LOC: EC 00:55 → 6SEL 02:48 → 4MS4W 05-27 10:22
PROVIDERS: ADMIT Internal Medicine; ATTEND Internal Medicine
DX: A41.51 Sepsis due to Escherichia coli [E. coli] (principal); J18.9 Pneumonia, unspecified organism; N17.9 Acute kidney failure, unspecified; J96.11 Chronic respiratory failure with hypoxia; G92 Toxic encephalopathy; E87.2 Acidosis; F03.90 Unspecified dementia, unspecified severity, without behavioral disturbance, psychotic disturbance, mood disturbance, and anxiety; N39.0 Urinary tract infection, site not specified; J44.0 Chronic obstructive pulmonary disease with (acute) lower respiratory infection; E11.22 Type 2 diabetes mellitus with diabetic chronic kidney disease; J44.9 Chronic obstructive pulmonary disease, unspecified; D50.0 Iron deficiency anemia secondary to blood loss (chronic); I10 Essential (primary) hypertension; Z96.651 Presence of right artificial knee joint; Y95 Nosocomial condition; K21.9 Gastro-esophageal reflux disease without esophagitis; I35.0 Nonrheumatic aortic (valve) stenosis; E86.0 Dehydration; F32.9 Major depressive disorder, single episode, unspecified; F41.0 Panic disorder [episodic paroxysmal anxiety]; M19.90 Unspecified osteoarthritis, unspecified site; I12.9 Hypertensive chronic kidney disease with stage 1 through stage 4 chronic kidney disease, or unspecified chronic kidney disease; R01.1 Cardiac murmur, unspecified; R45.1 Restlessness and agitation; N18.9 Chronic kidney disease, unspecified; Z87.891 Personal history of nicotine dependence; Z83.3 Family history of diabetes mellitus; Z82.5 Family history of asthma and other chronic lower respiratory diseases; Z82.49 Family history of ischemic heart disease and other diseases of the circulatory system; Z79.899 Other long term (current) drug therapy; Z88.1 Allergy status to other antibiotic agents; Z99.81 Dependence on supplemental oxygen; Z88.8 Allergy status to other drugs, medicaments and biological substances; Z90.49 Acquired absence of other specified parts of digestive tract; Z90.710 Acquired absence of both cervix and uterus; Z79.4 Long term (current) use of insulin; Z79.51 Long term (current) use of inhaled steroids; Z91.040 Latex allergy status; Z88.6 Allergy status to analgesic agent; Z91.81 History of falling
CPT/HCPCS: 36415; 70450; 71020; 74020; 80048; 80053; 80202; 81001; 82272; 82550; 82553; 82803; 83605; 84484; 85025; 85027; 85610; 85730; 87040; 87077; 87086; 87186; 93005; 94760; 96361; 96365; 96368; 99291